=== PATIENT | male | born 1950 | race Caucasian/White ===

== ENCOUNTER → 2018-06-08 10:42 | Outpatient (CLI) | payer MEDICARE, SELFPAY ==
--- NOTE | 2018-06-08 10:51 | XR_ITS ---
XR chest 2V HISTORY: ITS.REASON: COUGH ORDERING PHYSICIAN: Jose Alfredo Quinn MD PATIENT AGE: 68 years COMPARISON: None FINDINGS: The cardiomediastinal silhouette and pulmonary vascularity are within normal limits. The lungs are clear without infiltrates, suspicious nodules, or pleural effusions. No acute bony abnormalities. IMPRESSION: Negative chest, no acute finding
== END ==
PROVIDERS: PCP Family Medicine; Visit Provider Family Medicine
DX: R05 Cough (principal)
CPT/HCPCS: 71046

== ENCOUNTER → 2019-05-31 14:13 | Outpatient (CLI) | payer MEDICARE, SELFPAY ==
--- NOTE | 2019-05-31 14:14 | CA_ITS ---
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 Bilateral Lower Extremity Venous Study for DVT. Java Engineer: LORNA BanksT Indications Lower Extremity Edema: Bilateral leg swelling Risk Factors Post OP Pt has had LE edema since having laser prostate surgery mid Apr. Medications Aspirin Vein Imaging CFV (R): compressive, spontaneous, phasic, augmentation FEM (R): compressive, spontaneous, phasic, augmentation POP (R): compressive, spontaneous, phasic, augmentation PTV (R): Compressible GSV (R): Compressible Peroneals (R):Compressible GAS (R): Compressible CFV (L): compressive, spontaneous, phasic, augmentation FEM (L): compressive, spontaneous, phasic, augmentation POP (L): compressive, spontaneous, phasic, augmentation PTV (L): Compressible GSV (L): Compressible Peroneals (L):Compressible GAS (L): Compressible Conclusion Study is negative for DVT bilateral lower extremities. Study is negative for SVT bilateral lower extremities. 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 Critical Notification Physician Notified Date: 05/31/2019 Time: 14:55 Physician Name: Wanda Madrigal Electronically signed by : Osmar Valentin MD 06/03/2019 16:41:06
== END ==
PROVIDERS: PCP Family Medicine; Visit Provider Urology
DX: M79.89 Other specified soft tissue disorders (principal)
CPT/HCPCS: 93970

== ENCOUNTER → 2020-02-27 09:11 | Outpatient (CLI) | payer MEDICARE, SELFPAY ==
--- NOTE | 2020-02-27 09:25 | US_ITS ---
PROCEDURE: US ABDOMEN LIMITED CLINICAL INDICATION: RUQ PAIN COMPARISON: No exams were available for comparison FINDINGS: PANCREAS: Pancreas is not well delineated due to overlying bowel gas. CT or MRI without and with contrast with pancreatic protocol may provide further evaluation if clinically desired. LIVER: No focal liver lesions demonstrated. Homogeneous echogenicity. No intrahepatic biliary ductal dilatation evident. There is appropriate direction of blood flow within a non dilated portal vein RIGHT KIDNEY: Unremarkable. Normal size and echogenicity. No hydronephrosis GALLBLADDER: No gallstones, gallbladder wall thickening, pericholecystic fluid, or biliary dilatation. IMPRESSION: Poor visualization pancreas otherwise negative right upper quadrant ultrasound Dictated by: Osmar Valentin MD 02/27/2020 16:12 Electronically signed by Osmar Valentin MD in [place] 02/27/2020 16:12
--- NOTE | 2020-02-27 09:38 | CA_ITS ---
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 Laterality: Bilateral Study Quality: Fair Indications: facial numbness, htn, dm, hld Doppler Spectral Velocity Analysis ECA (R) 104.50/13.50 cm/s ECA (L) 109.70/10.30 cm/s dICA (R) 94.40/33.00 cm/s dICA (L) 92.00/29.90 cm/s Babs (R) 80.20/25.20 cm/s Babs (L) 77.90/24.40 cm/s pICA (R) 94.20/30.80 cm/s pICA (L) 84.80/26.60 cm/s dCCA (R) 92.50/18.70 cm/s dCCA (L) 92.80/15.70 cm/s pCCA (R) 90.00/19.70 cm/s pCCA (L) 87.50/13.50 cm/s Vert (R) 43.30/13.90 cm/s Vert (L) 44.90/13.90 cm/s ICA/CCA 1.00 ICA/CCA 1.00 Findings Duplex evaluation demonstrates stenosis of the right proximal internal carotid artery <20% with PSV <140 cm/sec, EDV <100 cm/sec, and IC/CC Ratio <4.0. Duplex evaluation demonstrates stenosis of the left proximal internal carotid artery <20% with PSV <140 cm/sec, EDV <100 cm/sec, and IC/CC Ratio <4.0. Duplex evaluation demonstrates antegrade flow of the bilateral Vertebral Arteries. Difficult to image. TDS. Conclusion No increased velocities to suggest hemodynamically significant stenosis in either internal carotid artery. Electronically signed by : Osmar Valentin MD 02/27/2020 17:07:20
== END ==
PROVIDERS: PCP Family Medicine; Visit Provider Family Medicine
DX: R10.11 Right upper quadrant pain (principal); R20.0 Anesthesia of skin
CPT/HCPCS: 76705; 93880

== ENCOUNTER → 2021-11-26 08:27 | Outpatient (CLI) | payer MEDICARE, SELFPAY ==
[2021-11-26 09:27] LABS: Hemoglobin A1C 7.9 % (4.0-6.0)
[2021-11-26 09:44] LABS: Chloride 111 mmol/L (98-107); Potassium 5.2 mmoL/L (3.5-5.1); Sodium 141 mmol/L (136-145)
[2021-11-26 09:46] LABS: Blood Urea Nitrogen 23 mg/dl (9-20); Estimated Glomerular Filt Rate 50 ml/min (>60); GFR (African American) 61 ML/MIN (>60)
[2021-11-26 09:47] LABS: Alanine Aminotransferase 21 U/L (12-78); Albumin/Globulin Ratio 1.6 (1.1-1.8); Alkaline Phosphatase 117 U/L (38-126); Anion Gap 13.2 mEq/L (5-15); Aspartate Amino Transferase 23 U/L (17-59); Bilirubin,Total 0.4 mg/dl (0.2-1.3); Calcium 8.7 mg/dl (8.4-10.2); Carbon Dioxide 22 mmol/L (22.0-30.0); Chol/HDL Ratio 3.1 (1-3.5); Cholesterol 131 mg/dl (140-200); Globulin 2.5 g/dL (1.3-3.2); Glucose 179 mg/dl (74-100); HDL Cholesterol 42 mg/dl (40-60); Total Protein,Serum 6.5 g/dl (6.3-8.2); Triglycerides 121 mg/dl (30-150); VLDL Cholesterol 24 mg/dL (0-40)
[2021-11-26 09:59] LABS: Direct LDL Cholesterol 70.68 mg/dL (100-129)
== END ==
PROVIDERS: PCP Family Medicine; Visit Provider Family Medicine
DX: E78.5 Hyperlipidemia, unspecified (principal); F52.21 Male erectile disorder; E11.9 Type 2 diabetes mellitus without complications; I10 Essential (primary) hypertension
CPT/HCPCS: 36415; 80053; 80061; 83036; G0103

== ENCOUNTER → 2022-03-12 16:27 | Outpatient (CLI) | payer MEDICARE, SELFPAY | PROVIDERS: PCP Family Medicine; Visit Provider Family Medicine | DX: U07.1 COVID-19 (principal) | CPT/HCPCS: C9803; U0003; U0005 ==

== ENCOUNTER → 2022-05-31 09:29 | Outpatient (CLI) | payer MEDICARE, SELFPAY | PROVIDERS: PCP Family Medicine; Visit Provider Family Medicine | DX: D64.9 Anemia, unspecified (principal) | CPT/HCPCS: 36415; 86850 ==

== ENCOUNTER → 2022-06-02 07:50 | Outpatient (CLI) | payer MEDICARE, SELFPAY ==
[2022-06-02] VITALS (20 sets, daily range): BP systolic 148–178; BP diastolic 62–93; PULSE 62–92; RESP 16; TEMP 36.1–36.4; O2SAT 98–100; BMI 33.0
[2022-06-02 09:17] LABS: Hematocrit 21.9 % (42.0-52.0)
--- NOTE | 2022-06-02 09:20 | PC.NURSE ---
BARBARA FROM LAB CALLED RN AT 0920 TO REPORT A HGB LEVEL 6.0. RN REPEATED AND VERIFIED PT NAME, , AND LAB VALUE. BLOOD INFUSED PER ORDER FROM .
[2022-06-02 13:14] LABS: Hematocrit 25.8 % (42.0-52.0); Hemoglobin 7.5 g/dL (14.1-18.0)
== END ==
PROVIDERS: PCP Family Medicine; Visit Provider Family Medicine
DX: D64.9 Anemia, unspecified (principal)
CPT/HCPCS: 36430; 85014; 85018; P9016

== ENCOUNTER 2022-06-13 10:51 | Day surgery (SDC) | payer MEDICARE, SELFPAY ==
[2022-06-12 09:19] VITALS: BMI 33.0
[2022-06-13] VITALS (8 sets, daily range): BP systolic 85–192; BP diastolic 52–78; PULSE 83–121; RESP 18–20; TEMP 36.2–36.3; O2SAT 92–98
[2022-06-13 11:54] LABS: Chloride 101 mmol/L (98-107); Potassium 4.2 mmoL/L (3.5-5.1); Sodium 138 mmol/L (136-145)
[2022-06-13 11:59] LABS: Anion Gap 18.2 mEq/L (5-15); Blood Urea Nitrogen 16 mg/dl (9-20); Calcium 8.9 mg/dl (8.4-10.2); Carbon Dioxide 23 mmol/L (22.0-30.0); Creatinine Clearance Estimated 74 mL/min (50-200); Estimated Glomerular Filt Rate 60 ml/min (>60); GFR (African American) 72 ML/MIN (>60); Glucose 101 mg/dl (74-100)
--- NOTE | 2022-06-13 12:11 | P.PN_ITS ---
PFSH PFSH Medical History Allergies Family history of GERD History of hypertension Surgical History History of tonsillectomy Family History Other No significant family history Social History Smoking Status: Never smoker alcohol intake: never substance use type: denies use current occupational status: retired Travel in the last 8 weeks: None household members: spouse housing: house caffeine: Yes [facility] Anesthesia Checklist Patient Identification Patient Identification: Arm Band and Verbal (Name & ) Structural Data Admitted From: Home Planned Operative Procedure/s: EGD/Colonoscopy Consent for Planned Operative Procedure(s) Verified: Yes NPO Status Verified Time NPO: 07:00 (Prep) Chart Verification Results Verified: BMP Airway Assessment C-Spine Mobility Assessed: Yes TMJ Mobility Assessed: Yes Dentition: Good Dentition Neurological Assessment Level of Consciousness: Awake Hx Seizures: No Numbness or tingling in extremities: No Anesthesia Plan Anesthesia Risk discussed: Yes Anesthesia Plan: Verified ASA Class: III Anesthesia Type: MAC
--- NOTE | 2022-06-13 13:28 | HMH.SCOPE ---
Procedure: Date: 06/13/22 Patient Date of :: 1950 Procedure Performed:: Esophagogastroduodenoscopy with biopsies and clip deployment Total colonoscopy with biopsy Indications:: Patient is a 72-year-old male referred by Dr. Quinn for performance of upper endoscopy and colonoscopy to work-up anemia.? Patient has had recent progressive weakness and fatigue with excessive sleepiness.? He underwent evaluation in his primary care provider's office and blood work was ordered which revealed hemoglobin of 5.9.? Patient was transfused a couple of units of packed red blood cells.? He has no known history of ulcers.? Patient does describe a 2-year history of back pain.? He has had some diarrhea.? He states that this is worse with spicy [place]ian type food.? He has not noticed any blood in his bowel movements.? He is on omeprazole.? He stopped the diclofenac.? Patient was transfused through outpatient surgery.? I have obtained records from previous colonoscopy and patient underwent colonoscopy on 08/01/[address] 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 Performing Provider:: Robi Sharma MD Referring Provider:: Eris Quinn MD Sedation:: MAC sedation Procedure:: Patient was taken to endoscopy procedure room. He was positioned in lateral decubitus position. Adequate intravenous sedation was achieved with anesthesia titration of propofol. Olympus endoscope was inserted via the oropharynx. Esophagus was intubated and endoscope was advanced. Overall the esophagus appeared relatively unremarkable. Stomach was cannulated and insufflated. Retroflexion revealed no evidence of any hiatal hernia. Gastric lumen appeared relatively unremarkable. However at the pylorus there was a small to moderate pyloric channel ulcer. This was clean-based with no stigmata of recent bleeding. The endoscope was able to be advanced into the duodenum. Duodenal bulb appeared unremarkable. In the second portion of the duodenum there was evidence of some inflammation and there was what appeared to be polypoid-like mass lesion. This was moderate sized and quite inflamed appearing. The significance is uncertain. With some minor difficulty the endoscope was able to be advanced beyond this and the distal duodenum appeared unremarkable. Endoscope was withdrawn and with repeated withdrawal into the gastric lumen and then reinsertion of the endoscope several biopsies were obtained of this polypoid masslike lesion in the second portion of the duodenum. There appeared to be good hemostasis. However, it was noted that this appeared to be somewhat pulsatile. To assure ongoing hemostasis ultimately Hemoclip was deployed near the base of the lesion. There was no bleeding noted. Endoscope was withdrawn into the gastric lumen. Gastric mucosal biopsies obtained. Stomach was desufflated and the endoscope was withdrawn. Patient was then positioned for colonoscopy. Variable stiffness Olympus colonoscope was inserted via the anus. It was advanced to the cecum. The ileocecal valve and appendiceal orifice were clearly identified. Colonoscope was advanced to the ileocecal valve but not into the terminal ileum as the terminal ileum could not be cannulated. There was an area of minor mucosal prominence/irregularity in the cecum which was likely inconsequential but biopsy was performed. Colonoscope was withdrawn through the remainder of the colon. There were very rare diverticuli in the sigmoid. Within the rectum there were evidence of probable varicosities which appeared to be potentially chronically thrombosed with no evidence of any bleeding. He had prolapsing nonbleeding internal hemorrhoids. Colonoscope was withdrawn. Findings:: Pyloric channel ulcer Polypoid masslike lesion in the second portion of the duodenum, biopsied, cli
[2022-06-14 15:16] LABS: POC Glucose,Bedside 118 (70-110)
== END 2022-06-13 14:32 | disposition home or self-care (01) ==
PROVIDERS: PCP Family Medicine; Visit Provider Surgery
PROC: 0DJ08ZZ Inspection of Upper Intestinal Tract, Via Natural or Artificial Opening Endoscopic (ICD-10-PCS; CPT 43235; principal; 2022-06-13 12:00)
DX: Z12.11 Encounter for screening for malignant neoplasm of colon (principal); D64.9 Anemia, unspecified; K63.5 Polyp of colon; K21.9 Gastro-esophageal reflux disease without esophagitis; Z79.899 Other long term (current) drug therapy
CPT/HCPCS: 43239; 45380; 80048; 82962; 88305; J2704

== ENCOUNTER → 2022-06-19 11:38 | Outpatient (CLI) | payer MEDICARE, SELFPAY ==
[2022-06-19 13:16] LABS: Blood Urea Nitrogen 15 mg/dl (9-20); Estimated Glomerular Filt Rate 60 ml/min (>60); GFR (African American) 72 ML/MIN (>60)
== END ==
PROVIDERS: PCP Family Medicine; Visit Provider Surgery
DX: D64.9 Anemia, unspecified (principal); K31.89 Other diseases of stomach and duodenum
CPT/HCPCS: 36415; 82565; 84520

== ENCOUNTER → 2022-06-25 08:04 | Outpatient (CLI) | payer MEDICARE, SELFPAY ==
--- NOTE | 2022-06-25 08:10 | CT_ITS ---
FINAL REPORT TECHNIQUE: Axial CT images of the abdomen and pelvis were obtained before and after the administration of IV contrast. Oral contrast was administered.This study was performed with techniques to keep radiation doses as low as reasonably achievable (ALARA). Individualized dose reduction techniques using automated exposure control or adjustment of mA and/or kV according to the patient''s size were employed. CLINICAL HISTORY: Duodenal mass, left flank pain FINDINGS: Abdomen: The lung bases are clear. The heart is normal in size. The liver has an unremarkable appearance, without evidence of mass or biliary duct dilatation. The gallbladder is present. The spleen is unremarkable. No adrenal masses present. The pancreas has an unremarkable appearance. There is a less than 1 cm cyst in the medial right kidney. The aorta is normal in caliber. There is no free fluid or adenopathy. No mass or abnormal fluid collection is seen. Precontrast images demonstrate no evidence of nephrolithiasis. There is mild to moderate vascular calcification. Pelvis: The appendix is normal. There is a presumed surgical clip at the 2nd portion of the duodenum. No duodenal mass is identified. The urinary bladder is unremarkable. The prostate is moderately enlarged. There is a small right inguinal hernia containing fat. No inflammatory process is seen. There is no evidence of mass or adenopathy. There is no evidence of bowel obstruction. IMPRESSION: No duodenal mass identified. Moderate prostate enlargement. Reviewed, Interpreted and Dictated by Robi Azevedo III, MD Transcribed by Velia Arreaga Authenticated and [facility]
== END ==
PROVIDERS: PCP Family Medicine; Visit Provider Surgery
DX: K31.89 Other diseases of stomach and duodenum (principal); R10.9 Unspecified abdominal pain
CPT/HCPCS: 74178; Q9967

== ENCOUNTER → 2022-08-04 12:46 | Outpatient (CLI) | payer MEDICARE, SELFPAY ==
--- NOTE | 2022-08-04 12:51 | XR_ITS ---
FINAL REPORT CLINICAL HISTORY: RT KNEE PAIN FINDINGS: RIGHT KNEE Three views of the right knee reveal no evidence of fracture or dislocation. The bony alignment is normal. There are mild and moderate degenerative changes with medial compartment narrowing. There is no evidence of joint effusion. There are posterior soft tissue calcifications. There are mild vascular calcifications. IMPRESSION: Mild and moderate degenerative changes with no acute abnormality identified. Reviewed, Interpreted and Dictated by Robi Azevedo III, MD Transcribed by Kitty Cadet Authenticated and [facility]
== END ==
LOC: LAB 12:47 → RAD 12:48
PROVIDERS: PCP Family Medicine; Visit Provider Family Medicine
DX: M25.561 Pain in right knee (principal)
CPT/HCPCS: 73562

== ENCOUNTER → 2022-08-21 20:36 | Outpatient (CLI) | payer MEDICARE, SELFPAY | PROVIDERS: PCP Student in an Organized Health Care Education/Training Program; Visit Provider Student in an Organized Health Care Education/Training Program | DX: U07.1 COVID-19 | CPT/HCPCS: C9803; U0003; U0005 ==

== ENCOUNTER 2022-09-26 06:57 | Day surgery (SDC) | payer MEDICARE, SELFPAY ==
[2022-08-13 10:28] VITALS: BMI 32.9
[2022-09-23 09:15] VITALS: BMI 33.0
[2022-09-26 07:14] VITALS: BP 189/102; PULSE 85; RESP 18; TEMP 36.2; O2SAT 98
--- NOTE | 2022-09-26 07:23 | EXP.ANES.CKL ---
[facility] Disclaimer: The information contained in this section may have been updated after the patient was seen, as this information can be updated by other users. Medical History Allergies Diabetes mellitus, type 2 Family history of GERD History of anemia History of COVID-19 History of hypertension Hyperlipidemia Hypertension Migraine Osteoarthritis of right knee Uses hearing aid Surgical History History of colonoscopy History of esophagogastroduodenoscopy (EGD) History of prostate surgery History of surgery History of tonsillectomy Family History Other Family history of heart disease Social History Smoking Status: Never smoker alcohol intake: never substance use type: denies use current occupational status: retired Travel in the last 8 weeks: None household members: spouse housing: house marital status: education level: high school caffeine: Yes special cara needs: No agree to transfusion: No do you feel safe at home: Yes victim of physical abuse: No victim of emotional abuse: No victim of sexual abuse: No would you like helpful sources: No [facility] Anesthesia Checklist Patient Identification Patient Identification: Arm Band and Verbal (Name & ) Structural Data Admitted From: Home Planned Operative Procedure/s: EGD Verified Documents: Surgical Consent NPO Status Verified Time NPO: 19:30 Airway Assessment C-Spine Mobility Assessed: Yes TMJ Mobility Assessed: Yes Dentition: Good Dentition Neurological Assessment Level of Consciousness: Awake, Alert and Appropriate Anesthesia Plan Anesthesia Risk discussed: Yes ASA Class: II Anesthesia Type: MAC
[2022-09-26 07:27] VITALS: O2SAT 98
--- NOTE | 2022-09-26 07:48 | P.PCN_ITS ---
Procedure: Date: 09/26/22 Patient Date of :: 1950 Procedure Performed:: Esophagogastroduodenoscopy with biopsy and dilatation of pylorus to 18 mm using elation pneumatic dilator Indications:: Patient presents for upper endoscopy.? He is a 72-year-old with symptomatic anemia and progressive weakness and fatigue.? He did have a hemoglobin of 5.9.? He had been on diclofenac and this was stopped and he was on omeprazole.? I did increase his omeprazole after his recent EGD.? He had a colonoscopy by Dr. 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 I did EGD and colonoscopy on 06/13/2022 and he had a pyloric channel ulcer which was nonbleeding but also had a polypoid masslike lesion in the second portion of the duodenum which was biopsied extensively and pathology returned as inflamed granulation tissue.? Colonoscopy was rather unremarkable.? Given the findings on upper endoscopy I had him undergo CT scan.? This reveals no duodenal mass identified.? Moderate prostate enlargement. ??Plan was for follow-up upper endoscopy. Performing Provider:: Robi Sharma MD Referring Provider:: Eris Quinn MD Sedation:: MAC sedation Procedure:: Patient was taken to endoscopy procedure room. He was positioned in lateral decubitus position. Adequate intravenous sedation was achieved with anesthesia titration of propofol. Olympus endoscope was inserted via the oropharynx. Esophagus appeared unremarkable. Gastroesophageal junction was encountered at approximately 40 cm. Stomach was cannulated and insufflated. There is a large amount of food retained within the stomach which precluded visualization somewhat. This was mostly undigested vegetable matter. Ultimately the pylorus was identified. There was evidence of some minor pyloric stenosis. No definite ulcer noted. The endoscope was barely able to be advanced beyond the pyloric channel. There was no evidence of any previously noted duodenal mass . H owever there did appear to be some minor mucosal narrowing of the second portion of the duodenum. Endoscope was advanced to the distal duodenum which was unremarkable. Endoscope was withdrawn into the stomach. Given the retained food matter and findings of pyloric channel narrowing likely from healing ulcer the pylorus was sequentially dilated from 15-16.5-18 mm luminal diameter using the elation balloon dilator. The endoscope was once again able to be advanced through the pylorus into the duodenum much more easily at this time. Gastric antral mucosal biopsy was obtained for CLOtest for H. pylori. Biopsy was obtained of the pyloric channel. Stomach was desufflated and the endoscope was withdrawn. Findings:: Gastroesophageal junction at 40 cm Large amount of retained food matter/vegetable matter within the gastric lumen and duodenum Pyloric channel narrowing, dilated Recommendations:: Continue proton pump inhibitors. I will follow-up on histopathology. May plan for repeat endoscopy in 8 to 12 weeks with repeat dilatation if indicated. Unlikely gastroparesis given the anatomic finding of the pylorus. Complications:: None immediately apparent Estimated blood obtained (mL): 2
[2022-09-26 07:51] VITALS: BP 89/64; PULSE 78; RESP 18; TEMP 36.1; O2SAT 92
[2022-09-26 08:01] VITALS: BP 119/68; PULSE 69; RESP 17; O2SAT 97
[2022-09-26 08:11] VITALS: BP 138/71; PULSE 63; RESP 16; O2SAT 96
[2022-09-26 08:21] VITALS: BP 132/65; PULSE 67; RESP 17; O2SAT 96
[2022-09-27 09:20] LABS: POC Glucose,Bedside 138 (70-110)
== END 2022-09-26 08:21 | disposition home or self-care (01) ==
PROVIDERS: PCP Family Medicine; Visit Provider Surgery
PROC: 0DJ08ZZ Inspection of Upper Intestinal Tract, Via Natural or Artificial Opening Endoscopic (ICD-10-PCS; CPT 43235; principal; 2022-09-26 08:00)
DX: D64.9 Anemia, unspecified (principal); K31.1 Adult hypertrophic pyloric stenosis; R53.83 Other fatigue; R53.1 Weakness; E11.9 Type 2 diabetes mellitus without complications; Z79.899 Other long term (current) drug therapy
CPT/HCPCS: 43239; 43245; 82962; 87339; 88305; 88342; C1726

== ENCOUNTER 2022-11-28 09:11 | Day surgery (SDC) | payer MEDICARE, SELFPAY ==
[2022-11-26 08:28] VITALS: BMI 33.0
[2022-11-28 09:27] VITALS: BP 195/105; PULSE 98; RESP 20; TEMP 36.4; O2SAT 99
--- NOTE | 2022-11-28 09:30 | P.PN_ITS ---
[facility] Disclaimer: The information contained in this section may have been updated after the patient was seen, as this information can be updated by other users. Medical History Allergies Diabetes mellitus, type 2 Family history of GERD History of anemia History of COVID-19 History of hypertension Hyperlipidemia Hypertension Osteoarthritis of right knee Uses hearing aid Surgical History History of colonoscopy History of esophagogastroduodenoscopy (EGD) History of prostate surgery History of surgery History of tonsillectomy Family History Other Family history of heart disease Social History Smoking Status: Never smoker alcohol intake: never substance use type: denies use current occupational status: retired Travel in the last 8 weeks: None household members: spouse housing: house marital status: education level: high school caffeine: Yes special cara needs: No agree to transfusion: No do you feel safe at home: Yes victim of physical abuse: No victim of emotional abuse: No victim of sexual abuse: No would you like helpful sources: No [facility] Anesthesia Checklist Patient Identification Patient Identification: Arm Band and Verbal (Name & ) Structural Data Admitted From: Home Planned Operative Procedure/s: EGD Consent for Planned Operative Procedure(s) Verified: Yes NPO Status Verified Time NPO: 00:00 Airway Assessment C-Spine Mobility Assessed: Yes TMJ Mobility Assessed: Yes Dentition: Good Dentition Neurological Assessment Level of Consciousness: Awake Hx Seizures: No Numbness or tingling in extremities: No Anesthesia Plan Anesthesia Risk discussed: Yes Anesthesia Plan: Verified ASA Class: II Anesthesia Type: MAC
--- NOTE | 2022-11-28 10:07 | P.PCN_ITS ---
Procedure: Date: 11/28/22 Patient Date of :: 1950 Procedure Performed:: Esophagogastroduodenoscopy with biopsy, polypectomy using hot snare, dilatation pylorus Indications:: Patient presents for upper endoscopy.? He is a 72-year-old with symptomatic anemia and progressive weakness and fatigue.? He did have a hemoglobin of 5.9.? He had been on diclofenac and this was stopped and he was on omeprazole.? I did increase his omeprazole.? He had a colonoscopy by Dr. 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 I did EGD and colonoscopy on 06/13/2022 and he had a pyloric channel ulcer which was nonbleeding but also had a polypoid masslike lesion in the second portion of the duodenum which was biopsied extensively and pathology returned as inflamed granulation tissue.? Colonoscopy was rather unremarkable.? Given the findings on upper endoscopy I had him undergo CT scan.? This reveals no duodenal mass identified.? Moderate prostate enlargement. ??Plan was for follow-up upper endoscopy. He underwent follow-up EGD on 09/26/2022. At that time there was a large amount of retained food matter and vegetable matter withi n the gastric lumen and duodenum which made visualization impossible. He did undergo dilatation of the pyloric channel to 18 mm. Plan was for follow-up EGD for reassessment. Patient has been on a full liquid diet. Performing Provider:: Robi Sharma MD Referring Provider:: Eris Quinn MD Sedation:: MAC sedation Procedure:: Patient was taken to endoscopy procedure room. He was positioned in lateral decubitus position. Adequate intravenous sedation was achieved with anesthesia titration propofol. Olympus endoscope was inserted via the oropharynx. Esophagus was cannulated. Overall esophagus appeared relatively unremarkable. Gastroesophageal junction was encountered at approximately 40 cm. Stomach was cannulated and insufflated. There was good visualization at this point. Retrof lexion revealed no evidence of any significant hiatal hernia. There was some diffuse nonerosive gastritis. Biopsy was obtained. There did appear to be some minor stenosis of the pyloric channel likely due to healed ulcer. No evidence of any ulcer. Endoscope was able to be advanced beyond this although it was rather tight. Endoscope was withdrawn into the gastric lumen and the pyloric channel was dilated sequentially from 15-16 0.5 to 18 mm luminal diameter using the elation balloon dilator. Endoscope was advanced into the duodenum. In the second portion of the duodenum there was a small polypoid inflammatory like lesion. This was consistent with the large lesion noted on his initial endoscopy. This was removed in its entirety using hot snare. It was proximal to the identified ampulla by some distance. Endoscope was withdrawn into the gastroesophageal junction and a couple biopsies were obtained at the GE junction. Stomach was desufflated and the endoscope was withdrawn. Findings:: GE junction at 40 cm Diffuse gastropathy Pyloric stenosis, dilated Polypoid lesion in second portion of the duodenum removed with hot snare Recommendations:: Follow-up on histopathology Complications:: None immediate Estimated blood obtained (mL): 2
[2022-11-28 10:10] VITALS: BP 102/83; PULSE 109; RESP 14; TEMP 36.6; O2SAT 93
[2022-11-28 10:20] VITALS: BP 111/54; PULSE 103; RESP 15; O2SAT 94
[2022-11-28 10:20] LABS: POC Glucose,Bedside 144 (70-110)
[2022-11-28 10:30] VITALS: BP 95/52; PULSE 103; RESP 16; O2SAT 93
[2022-11-28 10:40] VITALS: BP 103/60; PULSE 93; RESP 16; O2SAT 95
[2022-11-28 10:46] VITALS: BP 104/62; PULSE 92; RESP 18; O2SAT 95
== END 2022-11-28 10:48 | disposition home or self-care (01) ==
PROVIDERS: PCP Family Medicine; Visit Provider Surgery
PROC: 0DJ08ZZ Inspection of Upper Intestinal Tract, Via Natural or Artificial Opening Endoscopic (ICD-10-PCS; CPT 43235; principal; 2022-11-28 10:30)
DX: D64.9 Anemia, unspecified (principal); L98.0 Pyogenic granuloma; K29.70 Gastritis, unspecified, without bleeding; Z79.899 Other long term (current) drug therapy; E11.9 Type 2 diabetes mellitus without complications
CPT/HCPCS: 43245; 43250; 82962; 88305; C1726

== ENCOUNTER 2025-04-11 11:04 | Emergency (ER) | payer MEDICARE, SELFPAY ==
--- OUTSIDE RECORDS SUMMARY | 2024-12-02 05:10 | XMS_ITS ---
Author Organization [facility] Address [address] [place] [id number] Care Team Providers Care [employer] Advisor Name Role Phone Maicol Quinn Primary Care Provider [phone] Results Component Value Reference Range Notes P-Vitamin B12 Reviewed date:12/08/2024 01:52:44 PM Interpretation: Performing Lab: Notes/Report: Test performed by [facility] [address] [place] [address] , [address], [place] [address] Brayden Delcid MD, Director Of Student Financial Aid CLIA: [id number] Vitamin B12 779 084-5318 pg/mL P-Comprehensive Metabolic Pa geronimo (CMP) Reviewed date:12/08/2024 01:52:44 PM Interpretation: Performing Lab: Notes/Report: Test performed by [facility] [address] [place] [address] , [address], [place] [address] Brayden Delcid MD, Director Of Student Financial Aid CLIA: [id number] Sodium 141 135-145 mmol/L Potassium 4.5 3.5-5.3 [...] Interpretation: Performing Lab: Notes/Report: Test performed by [facility] [address] [place], [place] [address] [place] [address] Brayden Delcid MD, Director Of Student Financial Aid CLIA: [id number] Hemoglobin A1C 10.2 <5.7 % The following HbA1c ranges recommended by the [place] [employer] (ADA) may be used as an aid in the diagnosis of diabetes mellitus. HbA1c Suggested Diagnosis >=6.5% Diabetic 5.7% - 6.4% Pre-Diabetic <5.7% Non-Diabetic P-Lipid Panel Reviewed date:12/08/2024 01:52:44 PM Interpretation: Performing Lab: Notes/Report: Test performed by [facility] [address] [place] [address] [address], [place] [address] Brayden Delcid MD, Director Of Student Financial Aid CLIA: [id number] Cholesterol 139 <200 mg/dL Triglycerides 146 <150 [...] Interpretation: Performing Lab: Notes/Report: Test performed by [facility] [address] [place] [address] , [address], [place] [address] Brayden Delcid MD, Director Of Student Financial Aid CLIA: [id number] PSA 1.82 <4.00 ng/mL Please note this is an ultrasensitive PSA assay with a lower limit of detection of 0.014 ng/mL. This test is performed by the José Miguel ECLIA methodology. Values obtained with different assay methods or kits cannot be directly compared. P-Microalbumin/Creatinine, R andom Urine Sample Reviewed date:12/08/2024 01:52:44 PM Interpretation: Performing Lab: Notes/Report: Test performed by [facility] [address] [place] [address] , [address], [place] [address] Brayden Delcid MD, Director Of Student Financial Aid CLIA: [id number] Albumin/Creatinine Ratio, Urine 22 0-30 ug/mg Microalbumin, Urine, Random 2.6 Creatinine, Urine 118.6 P-Vitamin D 25-Hydroxy Reviewed date:12/08/2024 01:52:44 PM Interpretation: Performing Lab: Notes/Report: Test performed by [facility] [address] [place] [address] [address], [place] [address] Brayden Delcid MD, Director Of Student Financial Aid CLIA: [id number] Vitamin D 25-Hydroxy 70.1 30.0-100.0 ng/mL Interpretation of Vitamin D 25 OH: < 20 ng/mL - Deficiency 20 - 29 ng/mL - Insufficiency 30 - 100 ng/mL - Sufficiency > 100 ng/mL - Super-therapeutic- toxicity may occur above this level. Clinical correlation required. Estimated Average Glucose Reviewed date:12/08/2024 01:52:44 PM Interpretation: Performing Lab: Notes/Report: Test performed by [facility] [address] [place] [address] [address], [place] [address] Brayden Delcid MD, Director Of Student Financial Aid CLIA: [id number] Estimated Average Glucose (eAG) 246 Estimated Average [...] Active Encounters Encounter Location Date Provider Diagnosis [facility] [address] [place] [address] 36 [facility] [address] [place] [id number] 12/02/2024 Maicol Quinn Essential (primary) hypertension I10 [...] Name:Maicol Sandoval, 06/08/2025 09:30:00 AM, [address] [facility] 36 [facility], [address], [place], [phone], Progress Notes * RAUL VALERAOB:1950 (74 yo M)Acc No.[id number]:12/02/2024 Patient: SHRUTI HOUSTON Provider: Maicol Quinn M.D. :1950 A ge:74 Y S ex:Male Date:12/02/2024 Address:[address] [place] [address] [place] RUANOCT-[id number] Subjective: * Chief Complaints: * 1 . [...] AM)* Value Reference Range V itamin B12 595 895-4161 - pg/mL * Maicol Quinn 12/08/2024 1:52:33 PM >discussed with [...] stimated Average Glucose 246 - mg/dL * [facility], support 12/03/2024 04:40:13 : This order was created by the Interface. Maicol Quinn 12/08/2024 1:52:33 PM >discussed with patient during office visit * Procedure Codes: 3 046F HEMOGLOBIN A1C LEVEL > 9.0% * Images: Billing Information: * Visit Code: * Procedure Codes: 3046F HEMOGLOBIN A1C LEVEL > 9.0%. * Electronic signature of Maicol Quinn MD on 04/11/2025 at 11:17 AM EDT Sign off status: Pending * Provider: Maicol Quinn M.D. Date: 0 12/02/2024 Generated for Zack ng/Fajuanag/eTransmitting on: 0 04/11/2025 11:17 AM EDT
--- OUTSIDE RECORDS SUMMARY | 2024-12-08 05:15 | XMS_ITS ---
Author Organization [facility] Address [address] [place] [phone] Care Team Providers Care Boat Master Name Role Phone Maicol Quinn Primary Care [...] Problem Chronic kidney disease stage 3A (disorder) (530215709) CKD stage 3a, GFR 45-59 ml/min (N18.31) Active confirmed Problem Benign prostatic hyperplasia (293369037) BPH (benign prostatic hyperplasia) (N40.0) Active confirmed Problem Overactive bladder (278156693) Overactive bladder (N32.81) Active confirmed Problem Obese class I (584834441575006 ) BMI 33.0-33.9,adult (Z68.33) Active confirmed Vital Signs Blood pressure systolic 126 mm Hg 12/09/19 25 Blood pressure diastolic 78 mm Hg 025 Height 65 in 12/08/2024 Weight 200.4 lbs 12/08/2024 BMI 33.34 kg/m2 12/08/2024 Encounters Encounter Location Date Provider Diagnosis [facility] [address] [facility] [address] [place], [place] [id number] 12/08/2024 Maicol Quinn Adult general medica l [...] 06/08/2025 09:30:00 AM, [address] [facility], [address] , [place], [place], [id number], Progress Notes * RAUL VALERAOB:1950 (74 yo M)Acc No.[id number]:12/08/2024 Annual Wellness Visit Patient: MEMO HOUSTONY Provider: Maicol Quinn M.D. :1950 A ge:74 Y S ex:Male Date:12/08/2024 Address:[place], [id number] Subjective: * Chief Complaints: * 1 . [...] 11/28/2022. * Hospitalization/Major Diagno stic [facility] [place] [facility]. * Family History: F ather: 53 yrs, [place]. M other: alive 95 yrs, [place], [place]. P aternal Grand Father: . P aternal [...] veractive bladder - N32.81 1 1. B [place] 33.0-33.9,adult - Z68.33 Plan: * Treatment: 2. [...] * Images: Billing Information: * Visit Code: 12275 Office Visit, Est Pt., Level 3. Modifiers: [...] 12/08/2024 Generated for Delioi mark/Jac/eTransmitting on: 0 04/11/2025 11:17 AM EDT History and Physical Notes * HPI (History of Present Illness) Category Sub-Category Detail Notes Category Not es HPI Patient is here today for a [facility] 6 month check up and a [...]
[2025-04-11 11:15] VITALS: BP 140/72; PULSE 93; RESP 16; TEMP 36.6; O2SAT 97; BMI 34.7
--- NOTE | 2025-04-11 11:17 | ECG_ITS ---
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 Exam: Resting ECG HR:98 bpm ECG Measurements Heart Rate 98 AXES OR 202 P 31 QRSd 146 QRS -3 QT 366 T 18 QTc 422 Conclusion Normal sinus rhythm Normal axis RBBB NO STEMI Electronically signed by : Dayron Morrison, 04/11/2025 16:33:38
--- OUTSIDE RECORDS SUMMARY | 2025-04-11 11:17 | XMS_ITS | Encounter Summary ---
Author Organization [facility] ([place], [place], [place], [place]) Address [address] [place] [address] Care Team Providers Care Superintendent Police Name Role Phone Unavailable Primary Care Provider Unavailabl e Encounter Details Date Type Department Care Team (Late st Contact Info) Description 05/04/2019 Transcribed Document [facility] [place] [address] ProviderSam MD [address] [place] [address] Social History Tobacco Use Types Packs/Day Years Used Date Smoking Tobacco: Never Assessed Sex and Gender Information Value Date Recorded Sex Assigned at Male 02/20/2022 5:24 PM CDT Legal Sex Male 6:43 PM CDT Gender Identity Male 02/20/2022 5:24 PM CDT Sexual Orientation Not on file documented as of this encounter Miscellaneous Notes * Cerner Conversion Note - Historical ProviderMD - 05/04/2019 3:25 PM CDT PAT Adult Entered On: 05/04/2019 15:32 EDT Performed On: 05/04/2019 15:25 EDT by LUAN TORRES RN Height and Weight, Clinical Dosing Height Source : Measured Height Entry Format : Phillips Height, Feet : 5 ft(Converted to: 152 cm, 60 Inch) Height, Inches : 5 Inch(Converted to: 0 ft 5 Inch, 12.70 cm) Clinical Height : 165.1 cm Weight Source : Standing scale Weight Entry Format : Phillips Clinical Dosing Weight : 89.82 kg Weight, Pounds : 197.6 lb Body Surface Area (BSA) : 1.97 m2 Body Mass Index : 33 kg/m2 (HI) [place] Body Weight : 61 kg EMERSON Hernandez RN - 05/05/2019 13:46 EDT Health Histories Smoking Status : Never (less than 100 in lifetime; none in last 30 days) Smokeless Tobacco Status : Never LUNA TORRES RN - 05/04/2019 15:25 EDT Social History (As Of: 05/04/2019 15:32:33 EDT) Tobacco: Never (less than 100 in lifetime) Smoking Status. Never Smokeless Tobacco Status. (Last Updated: 05/04/2019 15:25:51 EDT by LUNA TORRES, RN) Alcohol: Alcohol Use History No. (Last Updated: 05/04/2019 15:25:54 EDT by LUNA TORRES, RN) Substance Abuse: Drug Use Hx: No. Use in Last 12 Months: No. (Last Updated: 05/04/2019 15:25:58 EDT by LUNA TORRES, RN) Infectious Disease History Fever/Chills Last 48 Hours : No EMERSON Hernandez RN - 05/05/2019 13:46 EDT Infectious Disease History : Chicken pox/Shingles, Influenza, Mumps, Pertussis (Whooping cough) Travel To Regions with Travel Advisories : No Travel Outside [place] Within Last 30 Days : No Contact With Traveler to Advisory Region : No Tuberculosis Symptoms : None LUNA TORRES RN - 05/04/2019 15:25 EDT Anesthesia/Transfusion History Family History of Anesthesia Reaction : No prior transfusion(s) Blood Transfusion Acceptable to Patient : Yes Transfusion History : Prior anesthesia without reaction Family History of Anesthesia Reaction : None LUNA TORRES RN - 05/04/2019 15:25 EDT Advance Directive Patient has Advance Directive *Q : Yes, Advance Directive not with the patient Advance Directive Type : Living will, Medical durable power of deputy commonwealth's attorney (proxy) Copy Advance Directive Verified/on Chart : No LUNA TORRES RN - 05/04/2019 15:25 EDT Psychosocial History Currently in Unsafe Situation : No Tried to Harm Yourself in the Past? : No Thoughts of Harming/Killing Yourself : No LUNA TORRES RN - 05/04/2019 15:25 EDT Education Topics, Periop Preadmission Perioperative Education Grid Arrival Time/Place : Verbalizes understanding NPO Status/Directions : Verbalizes understanding Remove Body Piercings : Verbalizes understanding Responsible Adult : Verbalizes understanding Take/Hold Medications Pre-Procedure : Verbalizes understanding LUNA TORRES RN - 05/04/2019 15:25 EDT General Info Preferred Name : Huseyin Arrived From : Home Mode of Arrival on Unit : Ambulatory Patient Arrival Date/Time : 05/05/2019 12:38 EDT EMERSON Hernandez RN - 05/05/2019 13:46 EDT Support Person/Pt Rep Name : Leonor Frausto Support Person/Pt Rep Contact Information : [phone] Want Family/Rep/Phys Notified of Admit : No Emergency Contact #1 : Leonor Lisbet Emergency Contact #1 Emergency Contact #1 Relationship : spouse Emergency Contact #2 : ` Emergency Contact #2 Phone Number : ` Emergency Contact #2 Relationship : ` Information Obtained From : Patient Primary Language : Romanian Communication Barrier : None LUNA TORRES RN - 05/04/2019 15:25 EDT Reynaldo Scale Reynaldo Sensory Perception : Slightly limited Reynaldo Moisture : Rarely moist Reynaldo Activity : Walks occasionally Reynaldo Mobility : No limitation Reynaldo Nutrition : Adequate Reynaldo Friction and Shear : No apparent problem Reynaldo Score : 20 LUNA TORRES RN - 05/04/2019 15:25 EDT Sleep Apnea Risk Assmt BMI Greater Than 35 kg/m2 : No Neck Circumference Greater Than 40 cm : No STOP-BANG Sleep Apnea Risk Level Score : 5 EMERSON Hernandez RN - 05/05/2019 13:46 EDT Hx of Obstructive Sleep Apnea Diagnosis : No Snore Loudly : Yes Tired, Fatigued, or Sleepy During Day : Yes Observed Stopping Breathing During Sleep : No Have/Are Being Treated for Hypertension : Yes Age over 50 Years Old : Yes Gender Male : Yes LUNA TORRES RN - 05/04/2019 15:25 EDT documented in this encounter Plan of Treatment Not on file documented as of this encounter Visit Diagnoses Not on filedocumented in this encounter
--- OUTSIDE RECORDS SUMMARY | 2025-04-11 11:17 | XMS_ITS | Encounter Summary ---
Author Organization [employer] ([place], [place], [place], [place]) Address [address] [place] [address] Care Team Providers Care Mechanic Recovery Name Role Phone Unavailable Primary Care Provider Unavailabl e Encounter Details Date Type Department Care Team (Late st Contact Info) Description 05/05/2019 Transcribed Document [facility] [place] [facility] [place] [address] ProviderSam MD [address] [place] [address] Social History Tobacco Use Types Packs/Day Years Used Date Smoking Tobacco: Never Assessed Sex and Gender Information Value Date Recorded Sex Assigned at Male 02/20/2022 5:24 PM CDT Legal Sex Male 6:43 PM CDT Gender Identity Male 02/20/2022 5:24 PM CDT Sexual Orientation Not on file documented as of this encounter Miscellaneous Notes * Cerner Conversion Note - Historical ProviderMD - 05/05/2019 4:40 PM CDT DATE OF PROCEDURE: PREOPERATIVE DIAGNOSIS(ES): Urinary retention secondary to benign prostatic hypertrophy. POSTOPERATIVE DIAGNOSIS(ES): Urinary retention secondary to benign prostatic hypertrophy. PROCEDURE: GreenLight laser vaporization of prostate. SURGEON: Chema Madrigal M.D. ANESTHESIA: General. DRAINS: 22-Citizen Of [place] two-way Whitehead catheter. COMPLICATIONS: None. ESTIMATED BLOOD LOSS: Less than 50 mL. BRIEF HISTORY: Patient is a 68-year-old gentleman who for the last month has been battling episode of acute urinary retention. He was first placed on alpha-gio and then had Avodart added. Unfortunately, he has failed multiple voiding trials and had recent cystoscopy revealing obstructing prostate, mostly lateral lobe tissue. He presents today for GreenLight laser vaporization of prostate. Risks were discussed including bleeding and infection as well as persistent retention. He understands and wished to proceed. DESCRIPTION OF PROCEDURE: After satisfactory general anesthesia, he was carefully placed in the lithotomy position. Sequential compression garments were in place and functioning at time of induction. The continuous flow laser resectoscope apparatus was placed with the obturator and advanced into the bladder. Obviously, his catheter was removed prior to this. The bladder was inspected. He had a slight median lobe. Actually, it seemed as though he had some intravesical extension circumferentially. First attention was given to the median lobe area with care to identify and orient ureteral orifices location. This was taken down flat with the floor of the bladder. It was vaporized posteriorly and then lateral vaporization performed down to the level just proximal to the veru. The prostatic urethra was widely patent. He had no significant bleeding. The laser was placed on standby. Catheter was placed. This was irrigated and seemed to flow freely. His urine was slight pink upon transfer to the recovery room. We will anticipate discharge home with catheter removal in 72 hours. Chema Madrigal M.D. Dict: 05/05/2019 16:40:32 Trans: 05/05/2019 21:38:16 CC1: Chema Madrigal M.D. CC2: Dr. [place], [place] documented in this encounter Plan of Treatment Not on file documented as of this encounter Visit Diagnoses Not on filedocumented in this encounter
--- OUTSIDE RECORDS SUMMARY | 2025-04-11 11:17 | XMS_ITS | Encounter Summary ---
Author Organization [email or web address] ([place], [place], [place], [place]) Address [address] [place] [address] Care Team Providers Care Animal Care Giver Name Role Phone Unavailable Primary Care Provider Unavailabl e Encounter Details Date Type Department Care Team (Late st Contact Info) Description 05/05/2019 Transcribed Document [facility] [place] [address] ProviderSam MD [address] [place] [address] Social History Tobacco Use Types Packs/Day Years Used Date Smoking Tobacco: Never Assessed Sex and Gender Information Value Date Recorded Sex Assigned at Male 02/20/2022 5:24 PM CDT Legal Sex Male 6:43 PM CDT Gender Identity Male 02/20/2022 5:24 PM CDT Sexual Orientation Not on file documented as of this encounter Miscellaneous Notes * Cerner Conversion Note - Historical ProviderMD - 05/05/2019 2:58 PM CDT [facility] Main OR PACU Summary Primary Physician: TERRI CROSS MD-URO Finalized Date/Time: 05/05/19 18:09:17 Pt. Name: HUSEYIN VALERA /Sex: 1950 Male Med Rec #: [id number] Physician: TERRI CROSS MD-URO Financial #: [id number] Pt. Type: O Room/Bed: Admit/Disch: 05/05/19 12:30:00 - Institution: [facility] Main OR PACU I Case Times Entry 1 In PACU I 05/05/19 16:30:00 Ready for PACU 05/05/19 17:00:00 Discharge Discharge from PACU 05/05/19 17:50:00 I Last Modified By: Delphi FallsRuthie moyer Rn-Traveler 05/05/19 18:09:03 [facility] Main OR PACU Acuity Entry 1 Start Time 05/05/19 17:00:00 Stop Time 05/05/19 17:50:00 Acuity Level [facility] PACU Acuity I Last Modified By: Ruthie Wilson Rn-Traveler 05/05/19 18:09:15 Finalized By: Ruthie Wilson Rn-Traveler Document Signatures Signed By: Ruthie Wilson Rn-Traveler 05/05/19 18:09 Electronically signed by Manny [facility] Conversion Oil Separator Cerner at 12/11/2022 3:21 PM CDT documented in this encounter Plan of Treatment Not on file documented as of this encounter Visit Diagnoses Not on filedocumented in this encounter
--- OUTSIDE RECORDS SUMMARY | 2025-04-11 11:17 | XMS_ITS | Encounter Summary ---
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 Name Role Phone Unavailable Primary Care Provider Unavailabl e Encounter Details Date Type Department Care Team (Late st Contact Info) Description 05/05/2019 Transcribed Document [facility] [place] Family [facility] [place] [address] ProviderSam MD [address] [place] [address] Social History Tobacco Use Types Packs/Day Years Used Date Smoking Tobacco: Never Assessed Sex and Gender Information Value Date Recorded Sex Assigned at Male 02/20/2022 5:24 PM CDT Legal Sex Male 6:43 PM CDT Gender Identity Male 02/20/2022 5:24 PM CDT Sexual Orientation Not on file documented as of this encounter Miscellaneous Notes * Cerner Conversion Note - Sam ProviderMD - 05/05/2019 6:09 PM CDT [facility] [place] [address] HUSEYIN VALERA :1950 Visit Time:05/05/2019 What to do next Your Diagnosis Benign prostatic hyperplasia with lower urinary tract symptoms, Benign prostatic hyperplasia with lower urinary tract symptoms Instructions From Your Care Team Diet after Discharge: Resume usual diet as tolerated, Do not drink any alcoholic beverages, Drink at least 8-10 glasses of water per day Activity after Discharge: As tolerated, Rest and relax today, No strenuous activity Lifting Restrictions: No heavy lifting over 10 pounds _ Driving after Discharge: Do not drive until 24 hours after no longer taking pain medications Showering/Bathing: May shower in 24 hours, _ Notify Provider of: signs and symptoms of infection// fever sever pain and swelling_, _ keep appt for thursday to take suero catheter out. Discharge Follow Up Instructions: Follow up of next week in [place] Follow Up Instructions: place suero catheter to leg bag drainage Follow-Up Appointments Follow Up with TERRI CROSS When Within 2 weeks Comments Call for follow up appointment in [place]. Where: [address] [place] [address] [facility] (1) Medications What How Much When Instructions Next Dose sulfamethoxazole-trimethoprim (Bactrim DS 800 mg-160 mg oral tablet) 1 Tablet(s) Oral Two Times A Day Duration: 14 Day(s) Printed Prescription acetaminophen-diphenhydramine (Tylenol Extra Strength PM 500 mg-25 mg oral tablet) 1 Tablet(s) Oral Once a day (at bedtime) as needed for as needed for sleep aspirin 81 Milligram(s) Oral Every Day atorvastatin (atorvastatin 40 mg oral tablet) 1 Tablet(s) Oral At Bedtime diclofenac 75 Milligram(s) Oral Two Times A Day dutasteride 0.5 Milligram(s) Oral Every Day glipiZIDE (glipiZIDE 2.5 mg oral tablet, extended release) 1 Tablet(s) Oral Two Times A Day griseofulvin (griseofulvin ultramicrocrystalline 250 mg oral tablet) 1 Tablet(s) Oral Two Times A Day lisinopril (lisinopril 20 mg oral tablet) 1 Tablet(s) Oral Every Day metFORMIN (metFORMIN 500 mg oral tablet, extended release) 1 Tablet(s) Oral Two Times A Day tamsulosin (tamsulosin 0.4 mg oral capsule) 1 Capsule(s) Oral Two Times A Day Take your medications faithfully. Do NOT skip medication. Do NOT stop taking medications without the direction of a physician. Carry a list of your medications with you at all times, and take this medication list with you to your first follow up visit. Report any side effects. Avoid herbal remedies unless discussed with your physician. As part of your treatment plan, your physician may have prescribed a limited course of a controlled substance. This medication may be given to help people with moderate or severe pain or for other medical conditions, but there are risks involved with treatment. Common side effects may include nausea, constipation, drowsiness, sweating, itching, dry mouth, and rash. More serious side effects may include cognitive and motor impairment, like problems with thinking, concentrating, alertness, and movement (e.g. slowed reflexes), and driving and operating heavy machinery can be dangerous. It is important for you to talk to your physician if you have these side effects or questions. These controlled substances can produce physical dependence and be habit-forming if taken for an extended period of time, which means that the body has gotten used to them and may experience withdrawal symptoms if they are abruptly stopped. Withdrawal symptoms can include runny nose, sweating, goose bumps, diarrhea, abdominal cramping, rapid heartbeat, difficulty sleeping, and nervousness. Please dispose of unused and medications per pharmacy guidance. Education Materials Green Light Laser Prostate Treatment Green light laser therapy is a procedure that uses a high-energy laser to get rid of extra prostate tissue by turning the tissue into a vapor. It is less invasive than traditional methods of prostate surgery, which involve cutting out the prostate tissue. Because the tissue is turned into a vapor (vaporized) rather than cut out, there is generally less blood loss. This surgery is used to treat an enlarged prostate gland (benign prostatic hyperplasia). Tell a health care provider about: ??? Any allergies you have. ??? All medicines you are taking, including vitamins, herbs, eye drops, creams, and [id number] medicines. ??? Any problems you or family members have had with anesthetic medicines. ??? Any blood disorders you have. ??? Any surgeries you have had. ??? Any medical conditions you have. What are the risks? Generally, this is a safe procedure. However, problems may occur, including: ??? Infection. ??? Bleeding. ??? Allergic reaction to medicines. ??? Damage to other structures or organs. ??? Blood in the urine (hematuria). ??? Painful urination. ??? Urinary tract infection. ??? Erectile dysfunction (rare). ??? Dry ejaculation. ??? Scar tissue in the urinary passage. What happens before the procedure? Staying hydrated Follow instructions from your health care provider about hydration, which may include: ??? Up to 2 hours before the procedure ??? you may continue to drink clear liquids, such as water, clear fruit juice, black coffee, and plain tea. Eating and drinking restrictions Follow instructions from your health care provider about eating and drinking, which may include: ??? 8 hours before the procedure ??? stop eating heavy meals or foods such as meat, fried foods, or fatty foods. ??? 6 hours before the procedure ??? stop eating light meals or foods, such as toast or cereal. ??? 6 hours before the procedure ??? stop drinking milk or drinks that contain milk. ??? 2 hours before the procedure ??? stop drinking clear liquids. Medicines ??? Ask your health care provider about: ? Changing or stopping your regular medicines. This is especially important if you are taking diabetes medicines or blood thinners. ? Taking medicines such as aspirin and ibuprofen. These medicines can thin your blood. Do not take these medicines before your procedure if your health care provider instructs you not to. ??? You may be prescribed antibiotic medicine. If so, take your antibiotic as told by your health care provider. Do not stop taking the antibiotic even if you start to feel better. General instructions ??? Plan to have someone take you home from the hospital or clinic. ??? If you will be going home right after the procedure, plan to have someone with you for 24 hours. What happens during the procedure? To reduce your risk of infection: ? Your health care team will wash or sanitize their hands. ? Your skin will be washed with soap. ??? You will be given one or more of the following: ? A medicine to help you relax (sedative). ? A medicine to make you fall asleep (general anesthetic). ? A medicine that is injected into your spine to numb the area below and slightly above the injection site (spinal anesthetic). ??? A tube containing viewing scopes and instruments (fiber-optic scope) will be inserted through your penis. ??? A thin fiber will be put through the tube and positioned next to the extra prostate tissue. ??? Pulses of laser light will come from the end of the fiber and be projected onto the extra tissue. Your blood will absorb the light, become hot, and vaporize the extra prostate tissue. ??? The heat from the laser beam will seal off the blood vessels, which will lessen bleeding. ??? The fiber-optic scope will be removed and replaced with a temporary tube (catheter) that is used to help urine flow. The procedure may vary among health care providers and hospitals. What happens after the procedure? Your blood pressure, heart rate, breathing rate, and blood oxygen level will be monitored until the medicines you were given have worn off. ??? Depending on factors such as the amount of prostate tissue that was vaporized, the strength of your bladder, and the amount of bleeding expected, your catheter may be removed. ??? You may be given elastic support stockings to wear to help prevent blood clots in your legs. ??? Do not drive for 24 hours if you were given a sedative, or for as long as directed by your health care provider. Summary ??? Green light laser therapy is a procedure that uses a high-energy laser that turns extra prostate tissue into a vapor. ??? This procedure is less invasive than traditional methods of prostate surgery. ??? Follow instructions from your health care provider about eating and drinking before the procedure. ??? Pulses of laser light will come from the end of a thin fiber and be aimed at the extra prostate tissue. Your blood will absorb the light, become hot, and vaporize the extra tissue. This information is not intended to replace advice given to you by your health care provider. Make sure you discuss any questions you have with your health care provider. Document Released: 11/16/2008 Document Revised: 08/29/2017 Document Reviewed: 08/29/2017 [employer] Patient Education ?? 2017 [employer] Emergency Awareness and Preventative Care STROKE is an EMERGENCY Every Minute Counts Act FAST and Check for these signs: FACE Does the face look uneven? ARM Does one arm drift down? SPEECH Does their speech sound strange? TIME Call at any sign of stroke Stroke Risk Factors Atrial Fibrillation (irregular heartbeat) Diabetes Family history of stroke Heart Disease Heavy alcohol use High Blood Pressure High Cholesterol Physical inactivity and obesity Smoking Cigarette Smoking The facts are clear, cigarette smoking will shorten your life. Smoking can cause many illnesses along the way. As a healthcare provider, we recommend that you stop smoking. Assistance with quitting is available by contacting 2-780-KKOL-NOW. This is a free resource providing counseling, support, and referral. Or you may contact your personal physician. National Suicide Prevention Lifeline: The National Suicide Prevention Lifeline is a national network of local crisis centers that provides free and confidential emotional support to people in suicidal crisis or emotional distress 24 hours a day, 7 days a week. Don't Wait! Stop a Heart Attack Before it Starts What is a heart attack? A heart attack is damage or to a part of the heart from severely decreased or lack of blood flow to the heart. Over time, arteries can become narrow from the buildup of fat and cholesterol, which is called plaque. The plaque can rupture causing a blood clot to form. When the blood clot forms, the artery can become severely narrowed or completely blocked, causing a heart attack. Heart attack is the leading cause of in the [place]. 85% of muscle damage occurs within the first 2 hours. Delay in the recognition of heart attack symptoms increases the chances of . Know the early symptoms of a heart attack: Nausea Feeling of fullness in chest Jaw Pain Pain that travels down one or both arms Fatigue/being tired Anxiety Back Pain Chest pressure, squeezing, or discomfort Shortness of breath Sweating, or a cold sweat Feeling of impending doom There are unusual signs of a heart attack, too! Women, the elderly, and diabetics may present with atypical symptoms: Fainting/dizziness Weakness Confusion Risk Factors for a Heart Attack Some heart disease risk factors, such as age and family history, cannot be changed. Others, like smoking and lack of exercise, can be changed. Smoking High Cholesterol High Blood Pressure Family History Obesity Age Gender (Males are at higher risk) Lack of Exercise Diabetes Diet Stress Excessive Alcohol Intake If you or someone you know is experiencing the signs and symptoms of a heart attack, DON???T DELAY. Call immediately and seek help. If someone collapses, perform CPR! Do not attempt to drive if you are having symptoms of heart attack. Hands-Only CPR Why Hands-Only CPR? Hands-Only CPR has been shown to be as effective as conventional CPR for cardiac arrests that occur outside of a hospital. Survival depends on immediately receiving CPR from someone nearby. How do you perform Hands-Only CPR? There are two easy steps: Call if you see a teen or adult collapse Push hard and fast in the center of the chest at a beat of 100 beats per minute. Save a life! 4 WAYS TO GET AHEAD OF SEPSIS SEPSIS is a MEDICAL EMERGENCY. Time matters! Infections put you and your family at risk for a life-threatening condition called sepsis. Sepsis is the body's extreme response to an infection. It is life-threatening, and without timely treatment, sepsis can rapidly lead to tissue damage, organ failure, and . Sepsis happens when an infection you already have-in your skin, lungs, urinary tract or somewhere else-triggers a chain reaction throughout your body. 1 PREVENT INFECTIONS Take good care of chronic conditions. Talk to your doctor about getting the recommended vaccines. 2 PRACTICE GOOD HYGIENE Wash your hands frequently. Keep cuts or open sores clean and covered until they are healed. 3 KNOW THE SYMPTOMS Confusion or disorientation Shortness of breath High heart rate Fever, shivering, or feeling very cold Extreme pain or discomfort Clammy or sweaty skin 4 ACT FAST Get medical care IMMEDIATELY if you suspect sepsis or if you have an infection that is not getting better or is getting worse. To learn more about sepsis and how to prevent infections, visit www.cdc.gov/sepsis. Test Results Laboratory or Other Results This Visit (last charted value for your 05/05/2019 visit) General Chemistry 05/05/19 17:21:00 Glucose POC2: 86 mg/dL -- Normal range between ( 70 and 110 ) Device Comment 1: Device Comment 1 Patient Name:HUSEYIN VALERA I have received this information and was given the opportunity to ask questions. Patient/Yacht Master Name: Patient/Yacht Master Signature: Relationship to Patient: Clinician/Hospital Yacht Master Signature: Date: Electronically signed by Interface, [facility] Conversion Ops Analyst Cerner at 12/11/2022 3:14 PM CDT documented in this encounter Plan of Treatment Not on file documented as of this encounter Visit Diagnoses Not on filedocumented in this encounter
--- OUTSIDE RECORDS SUMMARY | 2025-04-11 11:17 | XMS_ITS | Encounter Summary ---
Author Organization 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 Name Role Phone Unavailable Primary Care Provider Unavailabl e Encounter Details Date Type Department Care Team (Late st Contact Info) Description 05/05/2019 Transcribed Document [facility] [place] [address] ProviderSam MD [address] [place] [address] Social History Tobacco Use Types Packs/Day Years Used Date Smoking Tobacco: Never Assessed Sex and Gender Information Value Date Recorded Sex Assigned at Male 02/20/2022 5:24 PM CDT Legal Sex Male 6:43 PM CDT Gender Identity Male 02/20/2022 5:24 PM CDT Sexual Orientation Not on file documented as of this encounter Miscellaneous Notes * Cerner Conversion Note - Sam ProviderMD - 05/05/2019 12:51 PM CDT Patient: HUSEYIN VALERA Age: 68 years Sex: Male : 1950 Associated Diagnoses: None Author: ANTHONY CONCEPCION AEROPHYSICIST Chief Complaint BPH Review of Systems ROS reviewed as documented in chart no change since last seen by surgeon Health Status Allergies: Allergic Reactions (Selected) No Known Medication Allergies, Allergies (1) Active Reaction No Known Medication Allergies None Documented Current medications: (Selected) Documented Medications Documented Tylenol Extra Strength PM 500 mg-25 mg oral tablet: 1 Tab, Oral, Once a day (at bedtime), PRN: as needed for sleep, 0 Refill(s) aspirin: 81 mg, Oral, Daily, 0 Refill(s) atorvastatin 40 mg oral tablet: 1 Tab, Oral, At Bedtime dutasteride: 0.5 mg, Oral, Daily, 0 Refill(s) glipiZIDE 2.5 mg oral tablet, extended release: 1 Tab, Oral, BID griseofulvin ultramicrocrystalline 250 mg oral tablet: 1 Tab, Oral, BID, 0 Refill(s) lisinopril 20 mg oral tablet: 1 Tab, Oral, Daily metFORMIN 500 mg oral tablet, extended release: 1 Tab, Oral, BID tamsulosin 0.4 mg oral capsule: 1 Cap, Oral, BID, Home Medications (9) Active aspirin 81 mg, Oral, Daily atorvastatin 40 mg oral tablet 40 mg = 1 Tab, Oral, At Bedtime dutasteride 0.5 mg, Oral, Daily glipiZIDE 2.5 mg oral tablet, extended release 2.5 mg = 1 Tab, Oral, BID griseofulvin ultramicrocrystalline 250 mg oral tablet 250 mg = 1 Tab, Oral, BID lisinopril 20 mg oral tablet 20 mg = 1 Tab, Oral, Daily metFORMIN 500 mg oral tablet, extended release 500 mg = 1 Tab, Oral, BID tamsulosin 0.4 mg oral capsule 0.4 mg = 1 Cap, Oral, BID Tylenol Extra Strength PM 500 mg-25 mg oral tablet 1 Tab, PRN, Oral, Once a day (at bedtime) , No qualifying data available Problem list: All Problems Prostate hypertrophy / SNOMED CT 155006407 / Confirmed HTN (hypertension) / SNOMED CT 5474112953 / Confirmed Shingles / SNOMED CT 9393109 / Confirmed GERD - Gastro-esophageal reflux disease / SNOMED CT 6010399453 / Confirmed Diabetes mellitus / SNOMED CT 176633150 / Confirmed Back pain / SNOMED CT 6641235842 / Confirmed Arthritis / SNOMED CT 4297219 / Confirmed, Active Problems (7) Arthritis Back pain Diabetes mellitus GERD - Gastro-esophageal reflux disease HTN (hypertension) Prostate hypertrophy Shingles Histories Past Medical History: No active or resolved past medical history items have been selected or recorded. Family History: No family history items have been selected or recorded. Procedure history: No active procedure history items have been selected or recorded. Social History Social & Psychosocial Habits Alcohol 05/04/2019 Alcohol Use History, Social Habits No Substance Abuse 05/04/2019 Recreational Drug Use History No Recreational Drug Use Last 12 Months No Tobacco 05/04/2019 Smoking Status Never (less than 100 in l Smokeless Tobacco Status Never . Physical Examination VS/Measurements No qualifying data available General: Alert and oriented, No acute distress. Eye: Pupils are equal, round and reactive to light, Extraocular movements are intact, glasses. HENT: Normocephalic, slightly KAKE. Neck: Supple, Non-tender. Respiratory: Lungs are clear to auscultation, Respirations are non-labored. Cardiovascular: Normal rate, Regular rhythm, No murmur, No gallop, betty LE 1+ edema. Gastrointestinal: Soft, Non-tender. Genitourinary: No costovertebral angle tenderness, suero cath draining clear yellow urine to drainage bag. Lymphatics: No lymphadenopathy neck, axilla, groin. Musculoskeletal: Normal range of motion, Normal strength. Integumentary: Warm, Dry, [place]. Neurologic: Alert, Oriented. Psychiatric: Cooperative, Appropriate mood & affect. Review / Management Results review: No qualifying data available. Impression and Plan Condition: Stable. documented in this encounter Plan of Treatment Not on file documented as of this encounter Visit Diagnoses Not on filedocumented in this encounter
--- OUTSIDE RECORDS SUMMARY | 2025-04-11 11:17 | XMS_ITS | Encounter Summary ---
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 Name Role Phone Unavailable Primary Care Provider Unavailabl e Encounter Details Date Type Department Care Team (Late st Contact Info) Description 05/05/2019 Transcribed Document [facility] [place] Medicine [facility] [place] [address] ProviderSam MD [address] [place] [address] Social History Tobacco Use Types Packs/Day Years Used Date Smoking Tobacco: Never Assessed Sex and Gender Information Value Date Recorded Sex Assigned at Male 02/20/2022 5:24 PM CDT Legal Sex Male 6:43 PM CDT Gender Identity Male 02/20/2022 5:24 PM CDT Sexual Orientation Not on file documented as of this encounter Miscellaneous Notes * Cerner Conversion Note - Sam ProviderMD - 05/05/2019 3:15 PM CDT [facility] Main OR Preop Summary Primary Physician: TERRI CROSS MD-URO Finalized Date/Time: 05/05/19 14:38:18 Pt. Name: HUSEYIN VALERA /Sex: 1950 Male Med Rec #: [id number] Physician: TERRI CROSS MD-URO Financial #: [id number] Pt. Type: O Room/Bed: Admit/Disch: 05/05/19 12:30:00 - Institution: [facility] PreOp Case Times Entry 1 In Preop 05/05/19 12:38:00 Ready for Holding n/a Room Patient Ready for 05/05/19 13:53:00 Surgery Patient Out of Preop 05/05/19 14:38:00 Patient Out of n/a Holding Room Last Modified By: EMERSON Hernandez RN 05/05/19 14:38:17 [facility] PreOp Case Times Audit 05/05/19 14:38:17 Order Control Clerk Blood Bank: RUBIO Modifier: WILSONDL <+> 1 Patient Out of Preop 05/05/19 13:53:47 Order Control Clerk Blood Bank: RUBIO Modifier: WILSONDL <+> 1 Patient Ready for Surgery Finalized By: EMERSON Hernandez, RN Document Signatures Signed By: EMERSON Hernandez RN 05/05/19 14:38 Electronically signed by Manny [facility] Conversion Carpenter Labor Supervisor Cerner at 12/11/2022 3:20 PM CDT documented in this encounter Plan of Treatment Not on file documented as of this encounter Visit Diagnoses Not on filedocumented in this encounter
--- OUTSIDE RECORDS SUMMARY | 2025-04-11 11:17 | XMS_ITS ---
Author Organization Unknown Medications Date Medication Dosage DosageUnit StartDate StopDate StopReason Active DoseQuantity DoseUnit Dispense DispenseUnit Refills NdcCode DrugCode PharmacyId IsPrescription MappedMedication Srcstatus Custom 12/08 00:00 :00 Align - Tablet Chewable 1 03454019 68 Taking 12/02 00:00 :00 Align - Tablet Chewable 1 [id number] 68 Taking 10/25 00:00 :00 Align - Tablet Chewable 1 52103925 68 Taking 06/09 00:00 :00 Align - Tablet Chewable 1 14737683 68 Taking 06/09 00:00 :00 Amoxicillin -Pot Clavulanate 875-125 MG Tablet 09/16/2023 00:00:00 0 10 Tablet 0 28280 227 534 P Not Taking 12/08 00:00 :00 Aspir-Low 81 MG Tablet Delayed Release 1 [id number] 372 Taking 12/02 00:00 :00 Aspir-Low 81 MG Tablet Delayed Release 1 [id number] 372 Taking 10/25 00:00 :00 Aspir-Low 81 MG Tablet Delayed Release 1 [id number] 372 Taking 06/09 00:00 :00 Aspir-Low 81 MG Tablet Delayed Release 1 [id number] 372 Taking 02/17 00:00 :00 Atorvastati n Calcium 40 MG Tablet 1 90 Tablet 1 39373432 898 Start 02/17 00:00 :00 Atorvastati n Calcium 40 MG Tablet 0 90 Tablet 0 75343218 898 Stop 12/08 00:00 :00 Atorvastati n Calcium 40 MG Tablet 1 000 76276 810 P Continue 12/08 00:00 :00 Atorvastati n Calcium 40 MG Tablet 1 90 Tablet 0 64743814 898 Taking 12/02 00:00 :00 Atorvastati n Calcium 40 MG Tablet 1 90 Tablet 0 81433206 898 Taking 11/24 00:00 :00 Atorvastati n Calcium 40 MG Tablet 1 90 Tablet 0 57462379 898 Start 11/24 00:00 :00 Atorvastati n Calcium 40 MG Tablet 0 90 Tablet 1 78875245 810 Stop 10/25 00:00 :00 Atorvastati n Calcium 40 MG Tablet 1 90 Tablet 1 76766254 810 Taking 10/25 00:00 :00 Atorvastati n Calcium 40 MG Tablet 1 000 82452 810 P Taking 06/09 00:00 :00 Atorvastati n Calcium 40 MG Tablet 1 000 39090 810 P Continue 06/09 00:00 :00 Atorvastati n Calcium 40 MG Tablet 1 90 Tablet 1 29163591 810 Taking 05/31 00:00 :00 Atorvastati n Calcium 40 MG Tablet 1 90 Tablet 1 29852156 810 Start 05/31 00:00 :00 Atorvastati n Calcium 40 MG Tablet 0 90 Tablet 1 72608965 810 Stop 06/09 00:00 :00 Clindamycin HCl 300 MG Capsule 09/16/2023 00:00:00 0 15 Capsule 0 27273190 461 P Not Taking 12/08 00:00 :00 Farxiga 10 MG Tablet 1 90 1 43899072 030 P Unknown Status 12/08 00:00 :00 Farxiga 10 MG Tablet 1 30 Tablet 0 0031 0621 030 Taking 12/02 00:00 :00 Farxiga 10 MG Tablet 1 30 Tablet 0 0031 0621 030 Taking 11/24 00:00 :00 Farxiga 10 MG Tablet 1 30 Tablet 0 0031 0621 030 Start 11/24 00:00 :00 Farxiga 10 MG Tablet 0 15 Tablet 0 0031 0621 030 Stop 11/23 00:00 :00 Farxiga 10 MG Tablet 10/25/2024 00:00:00 1 15 Tablet 0 68508 621 030 P Unknown Status 10/25 00:00 :00 Farxiga 10 MG Tablet 10/25/2024 00:00:00 1 30 2928945 1 030 P Start 12/08 00:00 :00 Finasteride 5 MG Tablet 1 461945 35 505 P Continue 12/08 00:00 :00 Finasteride 5 MG Tablet 1 30 844331 35 505 P Taking 12/02 00:00 :00 Finasteride 5 MG Tablet 1 30 474386 35 505 P Taking 10/25 00:00 :00 Finasteride 5 MG Tablet 1 30 364788 35 505 P Taking 06/09 00:00 :00 Finasteride 5 MG Tablet 1 30 844533 35 505 P Taking 12/08 00:00 :00 Gemtesa 75 MG Tablet 11/15/2024 00:00:00 1 90 1 3142150 7 530 P Unknown Status 12/08 00:00 :00 Gemtesa 75 MG Tablet 11/15/2024 00:00:00 1 30 0360803 7 530 P Taking 12/02 00:00 :00 Gemtesa 75 MG Tablet 11/15/2024 00:00:00 1 30 2618570 7 530 P Taking 11/15 00:00 :00 Gemtesa 75 MG Tablet 11/15/2024 00:00:00 1 30 4384726 7 530 P Start 12/08 00:00 :00 Glimepiride 1 MG Tablet 1 031610 77 301 P Start 12/08 00:00 :00 Glimepiride 1 MG Tablet 06/09/2024 00:00:00 1 90 1 6331271 7 301 P Taking 12/02 00:00 :00 Glimepiride 1 MG Tablet 06/09/2024 00:00:00 1 90 1 2220612 7 301 P Taking 10/25 00:00 :00 Glimepiride 1 MG Tablet 06/09/2024 00:00:00 1 90 1 3402862 7 301 P Taking 06/09 00:00 :00 Glimepiride 1 MG Tablet 06/09/2024 00:00:00 1 90 1 6465985 7 301 P Start 02/23 00:00 :00 Lisinopril 20 MG Tablet 1 90 Tablet 0 6 0353977 190 Start 02/23 00:00 :00 Lisinopril 20 MG Tablet 0 90 Tablet 0 6 1605434 190 Stop 12/08 00:00 :00 Lisinopril 20 MG Tablet 1 911986 40 801 P Continue 12/08 00:00 :00 Lisinopril 20 MG Tablet 1 90 Tablet 0 6 5483883 190 Taking 12/02 00:00 :00 Lisinopril 20 MG Tablet 1 90 Tablet 0 6 2765180 190 Taking 11/30 00:00 :00 Lisinopril 20 MG Tablet 1 90 Tablet 0 6 0580009 190 Start 11/30 00:00 :00 Lisinopril 20 MG Tablet 0 90 Tablet 1 6 5574645 190 Stop 10/25 00:00 :00 Lisinopril 20 MG Tablet 1 90 Tablet 1 6 8697245 190 Taking 06/09 00:00 :00 Lisinopril 20 MG Tablet 1 564616 40 801 P Continue 06/09 00:00 :00 Lisinopril 20 MG Tablet 1 90 Tablet 1 6 9666418 190 Taking 06/08 00:00 :00 Lisinopril 20 MG Tablet 1 90 Tablet 1 6 6247637 190 Start 06/08 00:00 :00 Lisinopril 20 MG Tablet 0 90 Tablet 0 6 4477326 190 Stop 10/25 00:00 :00 metFORMIN HCl ER 500 MG Tablet Extended Release 24 Hour 0 76830376 501 P Stop 10/25 00:00 :00 metFORMIN HCl ER 500 MG Tablet Extended Release 24 Hour 1 18514189 501 P Taking 06/09 00:00 :00 metFORMIN HCl ER 500 MG Tablet Extended Release 24 Hour 1 17785150 501 P Continue 06/09 00:00 :00 metFORMIN HCl ER 500 MG Tablet Extended Release 24 Hour 1 360 Tablet 1 12003537 501 P Taking 11/15 00:00 :00 Myrbetriq 50 MG Tablet Extended Release 24 Hour 11/15/2024 00:00:00 0 1100723 0 207 P Stop 11/14 00:00 :00 Myrbetriq 50 MG Tablet Extended Release 24 Hour 11/15/2024 00:00:00 1 30 7535048 0 207 P Start 12/08 00:00 :00 Omeprazole 40 MG Capsule Delayed Release 1 180 Capsule 1 04780127 401 Taking 12/02 00:00 :00 Omeprazole 40 MG Capsule Delayed Release 1 180 Capsule 1 26653919 401 Taking 10/25 00:00 :00 Omeprazole 40 MG Capsule Delayed Release 1 180 Capsule 1 62897081 401 Taking 06/09 00:00 :00 Omeprazole 40 MG Capsule Delayed Release 1 180 Capsule 1 93529443 401 Taking 06/09 00:00 :00 traMADol HCl 50 MG Tablet 09/16/2023 00:00:00 0 15 0 5964420 0 101 P Not Taking 12/08 00:00 :00 Vitamin D 50 MCG (1999 [place]) Tablet 1 97822782 200 P Continue 12/08 00:00 :00 Vitamin D 50 MCG (1999 [place]) Tablet 1 92630811 200 P Taking 12/02 00:00 :00 Vitamin D 50 MCG (1999 [place]) Tablet 1 87779867 200 P Taking 10/25 00:00 :00 Vitamin D 50 MCG (2000 [place]) Tablet 1 36754910 200 P Taking 06/09 00:00 :00 Vitamin D 50 MCG (1999 [place]) Tablet 1 05633265 200 P Continue 06/09 00:00 :00 Vitamin D 50 MCG (1999 [place]) Tablet 1 03493519 200 P Taking
--- OUTSIDE RECORDS SUMMARY | 2025-04-11 11:17 | XMS_ITS | Encounter Summary ---
Author Organization [employer] ([place], [place], [place], [place]) Address [address] [place] [id number] Care Team Providers Care Nursing Home Social Worker Name Role Phone Unavailable Primary Care Provider Unavailabl e Encounter Details Date Type Department Care Team (Late st Contact Info) Description 05/05/2019 Transcribed Document [facility] [place] [facility] [place] [place] [address] ProviderSam MD [address] [place] [id number] Social History Tobacco Use Types Packs/Day Years Used Date Smoking Tobacco: Never Assessed Sex and Gender Information Value Date Recorded Sex Assigned at Male 02/20/2022 5:24 PM CDT Legal Sex Male 6:43 PM CDT Gender Identity Male 02/20/2022 5:24 PM CDT Sexual Orientation Not on file documented as of this encounter Miscellaneous Notes * Cerner Conversion Note - Sam ProviderMD - 05/05/2019 2:58 PM CDT [facility] Main OR IntraOp Summary Primary Physician: TERRI CROSS MD-URO Finalized Date/Time: 05/06/19 11:59:52 Pt. Name: HUSEYIN VALERA /Sex: 1950 Male Med Rec #: [id number] Physician: TERRI CROSS MD-URO Financial #: [id number] Pt. Type: O Room/Bed: Admit/Disch: 05/05/19 12:30:00 - Institution: [facility] IntraOp Case Attendance Entry 1 Entry 2 Entry 3 Case Attendee TERRI CROSS GHANSAH, NANA DADZIE, MD KLINE, LANCE S, NA MD-URO Role Performed Surgeon/Proceduralist, Anesthesiologist of POL[employer] SCREWHEAD/Nurse Sheriffs First Record Time In 05/05/19 14:39:00 05/05/19 14:39:00 05/05/19 14:39:00 Time Out 05/05/19 16:28:00 05/05/19 16:28:00 05/05/19 15:30:00 Procedure Prostate Green Light Prostate Green Light Prostate Green Light Laser Laser Laser Other Attendee Superficial Wound Closed By: Last Modified By: BELGICA FIGUEROA RN SMITH, MYRIAH L., RN SMITH, MYRIAH L., RN 05/05/19 16:31:20 05/05/19 16:31:20 05/05/19 16:31:20 Entry 4 Entry 5 Entry 6 Case Attendee Aggie Foster RN TODD, JUDY Baker, Amanda S, Telephone Interviewer Role Performed Stamp Collector, First Scrub, First Scrub, First Time In 05/05/19 14:39:00 05/05/19 15:01:00 05/05/19 14:39:00 Time Out 05/05/19 16:09:00 05/05/19 16:28:00 05/05/19 15:02:00 Procedure Prostate Green Light Prostate Green Light Prostate Green Light Laser Laser Laser Other Attendee Superficial Wound Closed By: Last Modified By: BELGICA FIGUEROA RN SMITH, MYRIAH L., BELGICA GATES RN 05/05/19 16:31:20 05/05/19 16:31:20 05/05/19 16:31:20 Entry 7 Entry 8 Entry 9 Case Attendee Penny Chan LAURIE, MD SMITH, MYRIAH L., SANCHEZ Role Performed Wood Getter, Ancillary Anesthesiologist Stamp Collector, First Time In 05/05/19 14:39:00 05/05/19 15:30:00 05/05/19 16:09:00 Time Out 05/05/19 16:28:00 05/05/19 16:28:00 05/05/19 16:28:00 Procedure Prostate Green Light Prostate Green Light Prostate Green Light Laser Laser Laser Other Attendee GREENLIGHT LASER Superficial Wound Closed By: Last Modified By: BELGICA FIGUEROA RN SMITH, MYRIAH L., BELGICA GATES RN 05/05/19 16:31:20 05/05/19 16:31:20 05/05/19 16:31:20 [facility] IntraOp Case Attendance Audit 05/05/19 16:31:20 Application Helper: MYRTLEA Modifier: SMITHML <+> 1 Time Out <+> 1 Procedure 2 <+> Time Out 2 <*> Procedure Prostate Green Light Laser 3 <*> Procedure Prostate Green Light Laser 4 <*> Procedure Prostate Green Light Laser 5 <+> Time Out 5 <*> Procedure Prostate Green Light Laser 6 <*> Procedure Prostate Green Light Laser 7 <+> Time Out 7 <*> Procedure Prostate Green Light Laser 8 <+> Time Out 8 <*> Procedure Prostate Green Light Laser 9 <+> Time Out 9 <*> Procedure Prostate Green Light Laser 05/05/19 16:09:37 Application Helper: MYRTLEA Modifier: SETTLEA 4 <+> Time Out 4 <*> Procedure Prostate Green Light Laser <+> 9 Case Attendee <+> 9 Role Performed <+> 9 Time In <+> 9 Procedure 05/05/19 16:08:19 Application Helper: MYRTLEA Modifier: SETTLEA 3 <+> Time Out 3 <*> Procedure Prostate Green Light Laser <+> 8 Case Attendee <+> 8 Role Performed <+> 8 Time In <+> 8 Procedure 05/05/19 15:08:37 Application Helper: MYRTLEA Modifier: SETTLEA 2 <+> Time In 2 <*> Procedure Prostate Green Light Laser 3 <+> Time In 3 <*> Procedure Prostate Green Light Laser 4 <+> Time In 4 <*> Procedure Prostate Green Light Laser 5 <*> Procedure Prostate Green Light Laser 6 <+> Time In 6 <*> Procedure Prostate Green Light Laser 7 <+> Time In 7 <*> Procedure Prostate Green Light Laser [facility] IntraOp Case Times Entry 1 Patient In Room Time 05/05/19 14:39:00 Out Room Time 05/05/19 16:28:00 Anesthesia Start Time 05/05/19 14:39:00 Stop Time 05/05/19 16:28:00 Surgery / Procedure Times Start Time 05/05/19 14:58:00 Stop Time 05/05/19 16:19:00 Last Modified By: BELGICA FIGUEROA RN 05/05/19 16:30:41 [facility] IntraOp Case Times Audit 05/05/19 16:30:41 Application Helper: SMITHML Modifier: SMITHML <+> 1 Out Room Time <+> 1 Stop Time 05/05/19 16:27:46 Application Helper: TIERRA Modifier: SMITHML <+> 1 Stop Time [facility] IntraOp Communication Entry 1 Communication To Family/Significant other Comment START Communication By Aggie Foster RN Date and Time 05/05/19 15:02:00 Last Modified By: Aggie Foster RN 05/05/19 15:02:37 [facility] IntraOp Departure from OR Entry 1 Integumentary Assessment Integumentary WDL Assessment WDL Transfer/Handoff Transfer to PACU Phase I Handoff Method Bedside/Face to face, Phone call Post-op Transport Stretcher/Gurney Via Patient Transport RYANN MAC MD, Accompanied by BELGICA FIGUEROA RN Last Modified By: BELGICA FIGUEROA RN 05/05/19 16:28:01 [facility] IntraOp Fire Risk Assessment Entry 1 Fire Info Surgical Site or 0- No Incision Above the Xyphoid Open O2 Source 0- No (Mask or Cannula) Available Ignition 1- Yes (ESU, Laser, Light Source) Fire Risk 1 Assessment Score Fire Score Fire Risk Yes Assessment Complete Fire Risk Aggie Foster RN Assessment Verified By Fire Risk 05/05/19 15:04:00 Assessment Verified Date/Time Fire Risk Standard Fire Yes Safety Precautions Followed Last Modified By: Aggie Foster RN 05/05/19 15:04:42 [facility] IntraOp General Case Accessioner 1 Case Information OR Cysto 02 [facility] Case Level 1 Room Verified Yes Wound Class II - Clean-Contaminated Specialty SN Urology Anesthesia Type General ASA Class 2 Diagnosis Preop Diagnosis URINARY RETENTION AND BENIGN PROSTATIC HYPERPLASIA Postop Same As Preop Yes Postop Diagnosis URINARY RETENTION AND BENIGN PROSTATIC HYPERPLASIA Last Modified By: Aggie Foster RN 05/05/19 15:06:42 [facility] IntraOp Intraoperative Assessment Entry 1 Handoff Method Other Valid History / Yes Physical in Chart Preoperative Yes Checklist Reviewed/Evaluated Allergies Reviewed Yes Patient is Latex No Sensitive Isolation Not applicable Precautions Noted Level of WDL Consciousness (WDL = Alert, Oriented to Person, Place, and Time) Skin Assessment Yes Verified Present Upon IVs Arrival to OR Last Modified By: Aggie Foster RN 05/05/19 15:06:50 [facility] IntraOp Intraoperative Equipment Entry 1 Type Monitoring Equipment Intraop Monitoring Electrocardiogram Three lead placement (ECG) Electrode Placement Blood Pressure Non-Invasive BP Device Source Antiembolic Devices Antiembolic Devices Sequential compression device, knee high Antiembolic Device Bilateral Location Antiembolic Device [id number] ID Number Scopes Photo/Video Documentation Photo No Video No Intraop Equipment Sequential compression Comment devices on and in operation prior to induction of anesthesia. Last Modified By: Aggie Foster RN 05/05/19 15:07:29 [facility] IntraOp Medication Admin Entry 1 Entry 2 Medication/Irrigant B&O 16A Suppository - RAFI IRR NACL 0.9PCT [id number] Combo Med List Time Administered Route of RECTAL IRRIGATION Administration Dose Dose 16 44814 Unit of Measure ampule ml Volume Administered By TERRI CROSS, TERRI CROSS MD-URO -URO Procedure Irrigation Irrigant Volume In Irrigant Volume Out Last Modified By: Aggie Foster RN SMITH, MYRIAH L., RN 05/05/19 15:17:14 05/05/19 16:31:13 [facility] IntraOp Medication Admin Audit 05/05/19 16:31:13 Application Helper: TIERRA Modifier: CAROLINAML <+> 2 Medication/Irrigant <+> 2 Route of Administration <+> 2 Administered By <+> 2 Dose <+> 2 Unit of Measure [facility] IntraOp Patient Positioning Entry 1 Procedure Prostate Green Light Laser Body Position Lithotomy Left Arm Position Resting at side Right Arm Position Resting at side Left Leg Position Secured in Leg Jordan Right Leg Position Secured in Leg Jordan Feet Uncrossed Yes Pressure Points Yes Checked Positioning Devices Head Rest, Pad, Elbow, Pad, Elbow, Stirrups/Leg Jordan, Cysto, Table, Cysto Positioned By Aggie Foster, SANCHEZ, TERRI CROSS, -URO, KELSIE BENÍTEZ S, KLAUS Position Verified Positioning Yes Verified by Anesthesia Positioning Yes Verified by Surgeon Last Modified By: Aggie Foster RN 05/05/19 15:08:40 [facility] IntraOp Patient Positioning Audit 05/05/19 15:08:40 Application Helper: TIERRA Modifier: TIERRA 1 <*> Procedure Prostate Green Light Laser [facility] IntraOp Sign In Entry 1 Patient, Site, Yes Procedure Identified Surgical Consent Yes Confirmed Relevant Surgical Yes Documents Available Surgical Site N/A Marked by person performing procedure Anesthesia Machine Yes Check Completed Medication Checks Yes Completed Allergies Yes Airway Difficult Yes Airway/Aspiration Risk Difficult Yes Airway/Aspiration Intervention Equipment Available Blood Loss Risk Yes Blood Loss Yes Intervention Equipment Prepared and Ready Blood Identifiers Not applicable Verified Per Policy Hypothermia Risk Yes Warming Measures Yes Taken Last Modified By: Aggie Foster RN 05/05/19 15:07:44 [facility] IntraOp Sign Out Entry 1 RN Confirmation Surgical Yes Procedure(s) Identified Instrument, Sponge N/A and Sharps Counts Correct/Documented Equipment Problems N/A Documented Specimen Labeled N/A Correctly Urinary Catheter Yes Documented in IView Madrigal Patient Yes Recovery Concerns Reviewed with Anesthesia Provider, Surgeon and RN Madrigal Patient Yes Management Concerns Reviewed with Anesthesia Provider, Surgeon and RN Safety Checklist Yes Elements Complete? RN Sign Out Aggie Foster RN Signature RN Sign Out 05/05/19 15:09:00 Signature Date/Time Plan of Care Outcome - Fire Risk OUTCOME STATEMENT: Goal met Patient is free from injury related to surgical fire Plan of Care Outcome - Pt Positioning OUTCOME STATEMENT: Goal met Absence of signs and symptoms of positioning injury. Plan of Care Outcome - Skin Prep OUTCOME STATEMENT: Goal met Intraoperative care is consistent with measures to prevent infection Plan of Care Outcome - Xray/Images OUTCOME STATEMENT: N/A Absence of observable signs or symptoms of radiation injury Plan of Care Outcome - Counts OUTCOME STATEMENT: Goal met Absence of signs and symptoms of injury related to extraneous objects Last Modified By: Aggie Foster RN 05/05/19 15:12:06 [facility] IntraOp Skin Prep Entry 1 Procedure Prostate Green Light Laser Prescribed Yes Pre-Surgical Prep Completed Prep Area Genitalia Intraop Prep Integumentary WDL Assessment WDL Prep Agents Betadine solution Prep by Aggie Foster RN Hair Removal Last Modified By: Aggie Foster RN 05/05/19 15:08:40 [facility] IntraOp Skin Prep Audit 05/05/19 15:08:40 Application Helper: TIERRA Modifier: TIERRA 1 <*> Procedure Prostate Green Light Laser [facility] IntraOp Surgical Procedures Entry 1 Procedure Prostate Green Light Laser Additional (GREENLIGHT LASER OF Procedure PROSTATE) Description Primary Procedure Yes Primary Surgeon TERRI CROSS MD-URO Start 05/05/19 14:58:00 Stop 05/05/19 16:19:00 Anesthesia Type General Specialty SN Urology Wound Class I - Clean Last Modified By: BELGICA FIGUEROA RN 05/05/19 16:31:19 [facility] IntraOp Surgical Procedures Audit 05/05/19 16:31:19 Application Helper: TIERRA Modifier: SMITHML <+> 1 Stop 05/05/19 15:08:53 Application Helper: TIERRA Modifier: TIERRA 1 <*> Procedure Prostate Green Light Laser 1 <*> Primary Procedure Yes 1 <*> Primary Surgeon TERRI CROSS MD-URO 1 <*> Specialty 1 <*> Start 05/05/19 14:58:00 1 <*> Wound Class I - Clean 1 <*> Anesthesia Type General 1 <*> Additional Procedure Description (GREENLIGHT LASER OF PROSTATE) Entry 2 was deleted. Higher numbered entries shifted one position to fill the gap. <-> 2 Procedure Prostate Green Light Laser <-> 2 Primary Procedure Yes <-> 2 Primary Surgeon TERRI CROSS MD-URO <-> 2 Specialty <-> 2 Start 05/05/19 14:58:00 <-> 2 Wound Class II - Clean-Contaminated <-> 2 Anesthesia Type General <-> 2 Additional Procedure Description GREENLIGHT LASER OF PROSTATE [facility] IntraOp Temp Regulation Devices Entry 1 Temp Regulation Temperature Warm blankets, Room Regulation Device temperature Temperature Upper body Regulation Site Temperature Aggie Foster RN Regulation Device Applied by Temperature Patient's temperature Regulation Comment monitored by anesthesia provider. Forced air warming device settings controlled by anesthesia provider. Last Modified By: Aggie Foster RN 05/05/19 15:09:07 [facility] IntraOP Time Out Entry 1 Procedure to be Prostate Green Light Performed Laser Time Out Time Out Pause Time 05/05/19 14:57:00 All activity Yes suspended (unless life threatening emergency) Team Verbally Correct patient Confirms Information identity, Consent form is present and accurate, Agreement on the procedure to be done, Correct patient position, Confirm antibiotics have been administered, Confirm the skin prep has dried, Performed in location of procedure after prepped/draped Antibiotic Yes Prophylaxis Administered Or In Progress Within the Last 60 Minutes Beta Rosenda N/A Administered Venous Yes Thromboembolism Prophylaxis Required Anticipated Critical Events Surgeon None expected Anesthesia Provider None expected Nursing Assures Sterility of instruments Essential Imaging N/A Labeled and Displayed Last Modified By: Aggie Foster RN 05/05/19 15:08:40 [facility] IntraOP Time Out Audit 05/05/19 15:08:40 Application Helper: TIERRA Modifier: TIERRA 1 <*> Procedure to be Performed Prostate Green Light Laser Case Comments <None> Finalized By: STANISLAW BECK Document Signatures Signed By: BELGICA FIGUEROA RN 05/05/19 16:31 STANISLAW BECK 05/06/19 11:59 Unfinalized History Date/Time Username Reason for Unfinalizing Freetext Reason for Unfinalizing 05/06/19 11:57 WATTSDR Correct Billing documented in this encounter Plan of Treatment Not on file documented as of this encounter Visit Diagnoses Not on filedocumented in this encounter
--- OUTSIDE RECORDS SUMMARY | 2025-04-11 11:17 | XMS_ITS | Patient Health Record ---
[facility] Address [address] [place] [id number] Care Team Providers Care Ceo & Board Director Name Role Phone Maicol Quinn Primary Care Provider Allergies Allergen (clinical drug ingredient) Drug/Non Drug Allergy documented on EMR Reaction Allergy Type Onset Date Status metformin metFORMIN diarrhea Drug Allergy Active Results Component Value Reference Range Notes CBC [...] - 38 plat 135 100 - 400 P-Vitamin D 1,25-Dihydroxy a nd 25-Hydroxy Reviewed date:06/09/2024 05:05:33 PM Interpretation:Normal Performing Lab: Notes/Report: Test performed by [facility] [address] [place] [address] , [address], [place] [address] Brayden Delcid MD, Kohinoor Operator CLIA: [id number] Vitamin D 25-Hydroxy 53.8 30.0-100.0 ng/mL Interpretation of Vitamin D 25 OH: < 20 ng/mL - Deficiency 20 - 29 ng/mL - Insufficiency 30 - 100 ng/mL - Sufficiency > 100 ng/mL - Super-therapeutic- toxicity may occur above this level. Clinical correlation required. Vitamin D, 1, 25 Dihydroxy 47.8 19.9-79.3 pg/m L P-Lipid Panel Reviewed date:06/09/2024 05:05:33 PM Interpretation:Normal Performing Lab: Notes/Report: Test performed by [facility] [address] , [address], [place] [address] Brayden Delcid MD, Kohinoor Operator CLIA: [id number] Cholesterol 141 <200 mg/dL Triglycerides 137 <150 mg/dL HDL Cholesterol 41 >39 mg/dL Cholesterol / HDL Ratio 3.44 0.00-4.99 Ratio Non-HDL Cholesterol 100 <130 mg/dL LDL Cholesterol (Calculation) 73 <130 mg/dL LDL Cholesterol Levels* Less than 100 mg/dL Optimal 100 to 129 mg/dL Near Optimal/ Above Optimal 130 to 159 mg/dL Borderline High 160 to 189 mg/dL High 190 mg/dL and above Very High * Categories as recommended by the 2004 ATPIII guidelines LDL/HDL Ratio 1.8 <3.3 Ratio LDL Cholesterol Patient History Test Date: 05/28/2022 LDL Results: 42 Units: mg/dL % Change: - Test Date: 12/07/2023 LDL Results: 40 Units: mg/dL % Change: -4% Test Date: 06/06/2024 LDL Results: 73 Units: mg/dL % Change: +82% P-Vitamin B12 Reviewed date:06/09/2024 05:05:33 PM Interpretation:Normal Performing Lab: Notes/Report: Test performed by [facility] [address] [place] [address] , [address], [place] [address] Brayden Delcid MD, Kohinoor Operator CLIA: [id number] Vitamin B12 952 606-9941 pg/mL Glycohemoglobin A1c (in hous e) Reviewed date:06/09/2024 05:05:34 PM Interpretation:8.3 Performing Lab: Notes/Report: 8.3 glycohemoglobin 8.3% 5 - 6.5 % CBC Fingerstick (in house) Reviewed date:06/09/2024 05:05:33 PM Interpretation:Normal Performing Lab: Notes/Report: Normal wbc 5.3 3.5 - 10 lym 31.4% 15 - 50 mid 8.4% 2 - 15 gran 60.2% 35 - 80 rbc 5.09 3.5 - 5.5 hgb 14.9 11.5 - 16.5 hct 46.5 35 - 55 mcv 91.2 75 - 100 mch 29.2 25 - 35 mchc 32.1 31 - 38 plat 188 100 - 400 P-Vitamin B12 Reviewed date:12/08/2024 01:52:44 PM Interpretation: Performing Lab: Notes/Report: Test performed by [facility] [address] [place] [address] , [place] [address] Brayden Delcid MD, Kohinoor Operator CLIA: [id number] Vitamin B12 330 704-4935 pg/mL P-Comprehensive Metabolic Pa geronimo (CMP) Reviewed date:12/08/2024 01:52:44 PM Interpretation: Performing Lab: Notes/Report: Test performed by [facility] [address] [place] [address] [address], [place] [address] Brayden Delcid MD, Kohinoor Operator CLIA: [id number] Sodium 141 135-145 mmol/L Potassium 4.5 3.5-5.3 [...] Interpretation: Performing Lab: Notes/Report: Test performed by [facility] [address] [place] [address] [address], [place] [address] Brayden Delcid MD, Kohinoor Operator CLIA: [id number] Hemoglobin A1C 10.2 <5.7 % The following HbA1c ranges recommended by the [place] [employer] (ADA) may be used as an aid in the diagnosis of diabetes mellitus. HbA1c Suggested Diagnosis >=6.5% Diabetic 5.7% - 6.4% Pre-Diabetic <5.7% Non-Diabetic P-Lipid Panel Reviewed date:12/08/2024 01:52:44 PM Interpretation: Performing Lab: Notes/Report: Test performed by [facility] [address] [place] [address] [address], [place] [address] Brayden Delcid MD, Kohinoor Operator CLIA: [id number] Cholesterol 139 <200 mg/dL Triglycerides 146 <150 [...] Interpretation: Performing Lab: Notes/Report: Test performed by [facility] [address] [place], [place] [address] [place] , [place] [address] Brayden Delcid MD, Kohinoor Operator CLIA: [id number] PSA 1.82 <4.00 ng/mL Please note this is an ultrasensitive PSA assay with a lower limit of detection of 0.014 ng/mL. This test is performed by the José Miguel ECLIA methodology. Values obtained with different assay methods or kits cannot be directly compared. P-Microalbumin/Creatinine, R andom Urine Sample Reviewed date:12/08/2024 01:52:44 PM Interpretation: Performing Lab: Notes/Report: Test performed by [facility] [address] , [place] [address] Brayden Delcid MD, Kohinoor Operator CLIA: [id number] Albumin/Creatinine Ratio, Urine 22 0-30 ug/m g Microalbumin, Urine, Random 2.6 Creatinine, Urine 118.6 P-Vitamin D 25-Hydroxy Reviewed date:12/08/2024 01:52:44 PM Interpretation: Performing Lab: Notes/Report: Test performed by [facility] [address] [place] [address] , [place] [address] Brayden Delcid MD, Kohinoor Operator CLIA: [id number] Vitamin D 25-Hydroxy 70.1 30.0-100.0 ng/mL Interpretation of Vitamin D 25 OH: < 20 ng/mL - Deficiency 20 - 29 ng/mL - Insufficiency 30 - 100 ng/mL - Sufficiency > 100 ng/mL - Super-therapeutic- toxicity may occur above this level. Clinical correlation required. Estimated Average Glucose Reviewed date:12/08/2024 01:52:44 PM Interpretation: Performing Lab: Notes/Report: Test performed by [facility] [address] , [place] [address] Brayden Delcid MD, Kohinoor Operator CLIA: [id number] Estimated Average Glucose (eAG) 246 Estimated Average Glucose (eAG) is calculated using the equation eAG = (28.7 x HbA1c) - 46.7 based on the guidelines established by the ADA. If the patient has certain diseases including kidney disease, sickle cell anemia, thalassemia, or is taking medications such as dapsone, erythropoietin, or iron, eAG should not be evaluated. Reason For Referral No Information Medications Medication SIG (Take, Route, Frequency, Duration) Notes Start Date End Date Status Glimepiride 1 MG 1 tablet with breakf ast or the first main meal of the day Orally Once a day Active Farxiga 10 MG 1 tablet Orally Once a day Active Gemtesa 75 MG 1 tablet Orally Once a day 11/15/2024 Active Vitamin D 50 MCG (1999) 2 tab(s) oral ly once a day Active Atorvastatin Calcium 40 MG 1 tablet Oral ly Once a day; Duration: 90 days Active Aspir-Low 81 MG 1 tab(s) orally oce a day Active Omeprazole 40 MG 1 cap(s) orally Two times a day; Duration: 90 days Active Finasteride 5 MG 1 tab(s) orally once a day Active Lisinopril 20 MG 1 tablet Orally Once a day; Duration: 90 days Active Align - as directed Orally A ctive Immunizations Vaccine Route Administration Date Status Comme nts COVID 19 Moderna Unknown 12/05/2020 Administered COVID 19 Moderna Unknown 06/05/2021 Administered DT, 7 YEARS OR OLDER Unknown 10/29/1996 Administered Fluzone High Dose (65yr and older) IM Intramuscular 06/10/2019 Administered Fluzone High Dose (65yr and older) Unknown 05/26/2020 Administered Fluzone High Dose (65yr and older) Unknown 07/06/2021 Administered Fluzone High Dose (65yr and older) IM Intramuscular 06/17/2022 Administered Fluzone High Dose (65yr and older) IM Intramuscular 05/28/2023 Administered Fluzone High Dose (65yr and older) IM Intramuscular 06/09/2024 Administered PNEUMOVAX 23 VACCINE IM Intramuscular 05/26/2011 Administered PNEUMOVAX 23 VACCINE IM Intramuscular 11/25/2011 Administered PNEUMOVAX 23 VACCINE IM Intramuscular 06/08/2020 Administered Prevnar (PCV13) IM Intramuscular 12/11/2016 Administered Prevnar (PCV20) IM Intramuscular 06/09/2024 Administered Shingrix Unknown 03/19/2019 Administered Shingrix Unknown 06/14/2019 Administered Tetanus Tdap-Adacel (over 7yrs) IM Intramuscular 01/31/2015 Administered Expecting grandjudah soon. Problems Problem Type SNOMED Code ICD Code Onset Dates Problem Status W/U Status Risk Notes Problem Essential hypertension (05506076) HTN [Hypertension] (401.9) Active confirmed Problem Type II diabetes mellitus without complication (489727468) Type 2 diabetes mellitus without complications (E11.9) Active confirmed Problem Essential hypertension (21264395) Essential (primary) hypertension (I10) Active confirmed Problem Overactive bladder (370955256) Overactive bladder (N32.81) Active confirmed Problem Vitamin D deficiency (95991230) Vitamin D deficiency (E55.9) Active confirmed Problem Vitamin B12 deficiency (089000914) Vitamin B12 deficiency (E53.8) Active confirmed Problem Hypertension (25624716) Hypertension (I10) Active confirmed Problem Iron deficiency anemia (13573029) Iron deficiency anemia (D50.9) Active confirmed Problem Obese class I (200340449708206) BMI 33.0-33.9,adult (Z68.33) Active confirmed Problem Male erectile disorder (970208937) Male erectile disorder (F52.21) Active confirmed Problem Benign prostatic hyperplasia (876177630) BPH (benign prostatic hyperplasia) (N40.0) Active confirmed Problem Hearing loss (10570283) Hearing loss (H91.90) Active confirmed Problem Primary generalised osteoarthritis (232355927) 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) Active confirmed Problem Hyperlipidemia (37786960) Other hyperlipidemia (E78.4) Active confirmed Problem Hyperlipidemia (30500241) Hyperlipidemia, unspecified (E78.5) Active confirmed Problem Screening for malignant neoplasm of prostate (917536255) Encounter for screening for malignant neoplasm of prostate (Z12.5) Active confirmed Problem Hyperlipidemia due to type 2 diabetes mellitus (disorder) (869691288052192) Hyperlipidemia associated with type 2 diabetes mellitus (E11.69) Active confirmed Problem Type II diabetes mellitus without complication (960192433) Type 2 diabetes mellitus without complication (E11.9) Active confirmed Problem Irritable bowel syndrome (19784558) Irritable bowel syndrome (K58.9) Active confirmed Problem Body mass index 30.00 to 34.99 (076778573294682) BMI 34.0-34.9,adult (Z68.34) Active confirmed Problem Peptic ulcer disease (07678659) Peptic ulcer disease (K27.9) Active confirmed Problem Dyslipidemia (914005117) Dyslipidemia (E78.5) Active confirmed Problem Noncompliance with dietary regimen (finding) (851945063) Noncompliance with dietary restriction (Z91.11) Active confirmed Problem Chronic kidney disease stage 3A (disorder) (524327830) CKD stage 3a, GFR 45-59 ml/min (N18.31) Active confirmed Vital Signs Heart Rate 80 /min 06/09/2024 Blood pressure diastolic 78 mm Hg 12/08/2024 Height 65 in 12/08/2024 Blood pressure systolic 126 mm Hg 12/08/2024 Weight 200.4 lbs 12/08/2024 BMI 33.34 kg/m2 12/08/2024 Encounters Encounter Location Date Provider Diagnosis [address] [id number] 06/06/2024 Maicol Quinn Type 2 diabetes tiffanie itus without complications E11.9 ; Hypertension I10 ; Iron deficiency anemia D50.9 ; Vitamin D deficiency E55.9 ; Vitamin B12 deficiency E53.8 and Dyslipidemia E78.5 [facility] [address] [id number] 06/09/2024 Maicol Quinn Hyperlipidemia associated with type 2 diabetes mellitus E11.69 ; Essential (primary) hypertension I10 ; Hyperlipidemia, unspecified E78.5 ; Type 2 diabetes mellitus without complications E11.9 ; Vitamin B12 deficiency E53.8 ; Vitamin D deficiency E55.9 ; Irritable bowel syndrome K58.9 and Encounter for immunization Z23 [address] [id number] 10/25/2024 Maicol Quinn Type 2 diabetes tiffanie itus without complications E11.9 and Irritable bowel syndrome K58.[address] [place] [id number] 12/02/2024 Maicol Quinn Essential (primary) hypertension I10 ; Hyperlipidemia, unspecified E78.5 ; Type 2 diabetes mellitus without complication E11.9 ; Vitamin B12 deficiency E53.8 ; Vitamin D deficiency E55.9 and Inflammatory disease of prostate, unspecified N41.9 [facility] [address] [facility] [address] [facility] [address] [place], [place] [id number] 12/08/2024 R Eris Quinn Adult general medica l examination Z00.00 [...] Overactive bladder N32.81 and BMI 33.0-33.9,adult Z68.33 [facility] [address] [facility] [address] [facility] [address] [place], [place] [id number] 07/19/2024 R Eris Quinn [facility] [address] [facility] [address] [facility] [address] [place], [place] [id number] 11/14/2024 R Eris [place] [facility] [address] [facility] [address] [facility] [address] [place], [place] [id number] 11/15/2024 R Eris [place] [facility] [address] [facility] [address] [facility] [address] [place] [id number] 11/23/2024 R Eris Quinn Type 2 diabetes tiffanie itus without complications E11.9 [facility] [address] [facility] [address] [facility] [address] [place], [place] [id number] 12/01/2024 R Eris Quinn Assessments Encounter Date Diagnosis (ICD Code) Assessment Notes Treatment Notes Treatment Clinical Notes Section Notes 06/09/2024 Essential (primary) hypertension (ICD-10 - I10) 10/25/2024 Type 2 diabetes mellitus without complications (ICD-10 - E11.9) 10/25/2024 Irritable bowel syndrome (ICD-10 - K58.9) 11/23/2024 Type 2 diabetes mellitus without complications (ICD-10 - E11.9) 12/02/2024 Essential (primary) hypertension (ICD-10 - I10) 06/09/2024 Hyperlipidemia associated with type 2 diabetes mellitus (ICD-10 - E11.69) 12/02/2024 Hyperlipidemia, unspecified (ICD-10 - E78.5) 12/08/2024 Hyperlipidemia associated with type 2 diabetes mellitus (ICD-10 - E11.69) 12/08/2024 Adult general medical examination (ICD-10 - Z00.00) Patient instructed to return to office Annually for Annual Wellness Visits to include annual screenings of Pain assessment, Functional Ability assessment, Cognitive Ability assessment, Fall Risk assessment, Depression screening and Bladder control screening. 12/02/2024 Type 2 diabetes mellitus without complication (ICD-10 - E11.9) 12/08/2024 Essential (primary) hypertension (ICD-10 - I10) 06/09/2024 Hyperlipidemia, unspecified (ICD-10 - E78.5) 06/06/2024 Type 2 diabetes mellitus without complications (ICD-10 - E11.9) 06/06/2024 Hypertension (ICD-10 - I10) 06/09/2024 Type 2 diabetes mellitus without complications (ICD-10 - E11.9) Blood sugars not well-controlled with A1c at 8.3%. Reinforced diet and weight loss 12/08/2024 Hyperlipidemia, unspecified (ICD-10 - E78.5) 12/02/2024 Vitamin B12 deficiency (ICD-10 - E53.8) 12/08/2024 Type 2 diabetes mellitus without complications (ICD-10 - E11.9) A1c has increased to >10 due to noncompliance with diet and taking the glimepiride. He agrees to start on the glimepiride. Reinforced diet and weight loss 06/09/2024 Vitamin B12 deficiency (ICD-10 - E53.8) Start OTC Vit B12 supplement 1000mcg daily 12/02/2024 Vitamin D deficiency (ICD-10 - E55.9) 06/06/2024 Iron deficiency anemia (ICD-10 - D50.9) 06/09/2024 Vitamin D deficiency (ICD-10 - E55.9) 06/06/2024 Vitamin D deficiency (ICD-10 - E55.9) 12/02/2024 Inflammatory disease of prostate, unspecified (ICD-10 - N41.9) 12/08/2024 Vitamin B12 deficiency (ICD-10 - E53.8) Start OTC Vit B12 supplement 1000mcg daily 12/08/2024 Vitamin D deficiency (ICD-10 - E55.9) 06/09/2024 Irritable bowel syndrome (ICD-10 - K58.9) 06/06/2024 Vitamin B12 deficiency (ICD-10 - E53.8) 06/06/2024 Dyslipidemia (ICD-10 - E78.5) 06/09/2024 Encounter for immunization (ICD-10 - Z23) 12/08/2024 CKD stage 3a, GFR 45-59 ml/min (ICD-10 - N18.31) 12/08/2024 BPH (benign prostatic hyperplasia) (ICD-10 - N40.0) 12/08/2024 Overactive bladder (ICD-10 - N32.81) 12/08/2024 BMI 33.0-33.9,adult (ICD-10 - Z68.33) Plan Of Treatment Next Appt Details Provider Name:Maicol Sandoval, 06/08/2025 09:30:00 AM, [address] [facility] [address] [facility], [address], [place], [place], [id number], Insurance Providers Payer Name Payer Address Payer Phone Subscriber Number Group Number Insured Name Patient Relationship to Insured Coverage Start Date Coverage End Date [facility] [id number] [place] [address] [id number] SHRUTI VALERA Self - patient is the insured Medications Administered Medication Instructions Date of Administration Dosage Notes B-12 06/09/2022 1 mL B-12 06/17/2022 1 mL B-12 06/23/2022 1 mL B-12 06/30/2022 1 mL B-12 05/28/2023 1 mL Medical (General) History Medical History History ICD Code Hypertension Type 2 Diabetes Obesity Hyperlipidemia Kidney Stones Osteoarthritis BPH 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 Sharma Overactive bladder Chronic kidney disease Surgical History Surgery Date(Month/Year) tonsillectomy 1974 C-scope - hemorrhoids 2004 Green light laser prostatectomy/ Dr. Choi ins 05/05/2019 EGD - pyloric channel ulcer and duodenal mass/ Dr. Sharma 05/2022 C-scope - internal hemorrhoids, rare div erticulosis 05/2022 Polypectomy 11/28/2022 Hospitalization History Reason Date(Month/Year) [place] [place] [facility]-enlarged prostate 03/2019
--- OUTSIDE RECORDS SUMMARY | 2025-04-11 11:17 | XMS_ITS | Encounter Summary ---
Author Organization [email or web address] ([place], [place], [place], [place]) Address [address] [place] [address] Care Team Providers Care Riveter Automobile Brakes Name Role Phone Unavailable Primary Care Provider Unavailabl e Encounter Details Date Type Department Care Team (Late st Contact Info) Description 05/05/2019 Transcribed Document [facility] [place] Family Medicine [facility] [place] [address] ProviderSam MD [address] [place] [address] Social History Tobacco Use Types Packs/Day Years Used Date Smoking Tobacco: Never Assessed Sex and Gender Information Value Date Recorded Sex Assigned at Male 02/20/2022 5:24 PM CDT Legal Sex Male 6:43 PM CDT Gender Identity Male 02/20/2022 5:24 PM CDT Sexual Orientation Not on file documented as of this encounter Miscellaneous Notes * Cerner Conversion Note - Sam ProviderMD - 05/05/2019 6:03 PM CDT Patient Education Materials Follows: Green Light Laser Prostate Treatment Green light [...] including vitamins, herbs, eye drops, creams, and [id number] medicines. ??? Any problems you or family [...] Up to 2 hours before the procedure ? you may continue to drink clear liquids, such as water, clear fruit juice, black coffee, and plain tea. Eating and drinking restrictions Follow instructions from your health care provider about eating and drinking, which may include: ??? 8 hours before the procedure ? stop eating heavy meals or foods such as meat, fried foods, or fatty foods. ??? 6 hours before the procedure ? stop eating light meals or foods, such as toast or cereal. ??? 6 hours before the procedure ? stop drinking milk or drinks that contain milk. ??? 2 hours before the procedure ? stop drinking clear liquids. Medicines ??? Ask [...] 11/16/2008 Document Revised: 08/29/2017 Document Reviewed: 08/29/2017 Elsevier Interactive Patient Education ? 2017 [employer] documented in this encounter Plan of Treatment Not on file documented as of this encounter Visit Diagnoses Not on filedocumented in this encounter
--- OUTSIDE RECORDS SUMMARY | 2025-04-11 11:17 | XMS_ITS | Encounter Summary ---
Author Organization [employer] ([place], [place], [place], [place]) Address [address] [place] [address] Care Team Providers Care Hydraulic Engineer Name Role Phone Unavailable Primary Care Provider Unavailabl e Encounter Details Date Type Department Care Team (Late st Contact Info) Description 05/05/2019 Transcribed Document [facility] [place] [facility] [place] [address] ProviderSam MD [address] [place] [address] Social History Tobacco Use Types Packs/Day [...] Historical ProviderMD - 05/05/2019 2:58 PM CDT [facility] Main OR PostOp Summary Primary Physician: TERRI CROSS MD-URO Finalized Date/Time: 05/05/19 18:48:22 Pt. Name: HUSEYIN VALERA /Sex: 1950 Male Med Rec #: [id number] Physician: TERRI CROSS MD-URO Financial #: [id number] Pt. Type: O Room/Bed: Admit/Disch: 05/05/19 12:30:00 - Institution: [facility] Main OR PostOp Case Times Entry 1 In PACU II 05/05/19 17:53:00 Ready for PACU II 05/05/19 18:30:00 Discharge Discharge from PACU 05/05/19 18:36:00 II Last Modified By: JOSEOCTAVIO MARINO RN 05/05/19 18:48:19 Finalized By: OCTAVIO JOSE, RN Document Signatures Signed By: OCTAVIO JOSE RN 05/05/19 18:48 Electronically signed by [facility] Conversion Grocery Clerk Selling Cerner at 12/11/2022 3:13 PM CDT documented in this encounter Plan of Treatment Not on file documented as of this encounter Visit Diagnoses Not on filedocumented in this encounter
--- OUTSIDE RECORDS SUMMARY | 2025-04-11 11:18 | XMS_ITS | Clinical Summary ---
Author Organization [employer] ([place], [place], [place], [place]) Address [address] [place] [address] Care Team Providers Care Gravity Prospecting Observer Helper Name Role Phone Unavailable Primary Care Provider Unavailabl e Social History Tobacco Use Types Packs/Day Years Used Date Smoking Tobacco: Never Assessed Sex and Gender Information Value Date Recorded Sex Assigned at Male 02/20/2022 5:24 PM CDT Legal Sex Male 6:43 PM CDT Gender Identity Male 02/20/2022 5:24 PM CDT Sexual Orientation Not on file Plan of Treatment Not on file
--- OUTSIDE RECORDS SUMMARY | 2025-04-11 11:18 | XMS_ITS | Referral Summary ---
Author Organization [employer] ([place], [place], [place], [place]) Address [address] [place] [address] Care Team Providers Care Production Control Planner Name Role Phone Unavailable Primary Care Provider [...]
[2025-04-11 11:41] LABS: Hematocrit 48.7 % (42.0-52.0); Hemoglobin 15.4 g/dL (14.1-18.0); Immature Granulocytes % 0.3 %; Mean Corpuscular HGB Conc 31.6 g/dL (31.8-35.4); Mean Corpuscular Hemoglobin 28.3 pg (27.0-31.2); Mean Corpuscular Volume 89.4 fl (80-94); Nucleated Red Blood Cells % 0 %; Platelet Count 160 K/mm3 (142-424); Red Blood Count 5.45 M/mm3 (4.60-6.20); Red Cell Distribution Width-SD 46.0 fL; White Blood Count 7.0 K/mm3 (4.8-10.8)
[2025-04-11 11:55] LABS: Alanine Aminotransferase 37 U/L (12-78); Albumin Level 4.5 g/dl (3.5-5.0); Albumin/Globulin Ratio 1.6 (1.1-1.8); Alkaline Phosphatase 135 U/L (38-126); Anion Gap 14.3 mEq/L (5-15); Aspartate Amino Transferase 54 U/L (17-59); Bilirubin,Total 1.0 mg/dl (0.2-1.3); Blood Urea Nitrogen 20 mg/dl (9-20); Calcium 9.6 mg/dl (8.4-10.2); Carbon Dioxide 28 mmol/L (22.0-30.0); Chloride 104 mmol/L (98-107); Creatine Kinase 52 U/L (55-170); Creatinine Clearance Estimated 53 mL/min (50-200); Creatinine,Serum 1.70 mg/dl (0.66-1.25); Estimated Glomerular Filt Rate 40 ml/min (>60); GFR (African American) 48 ML/MIN (>60); Globulin 2.8 g/dL (1.3-3.2); Glucose 148 mg/dl (74-100); Lipase 83 U/L (23-300); Potassium 4.3 mmoL/L (3.5-5.1); Sodium 142 mmol/L (136-145); Total Protein,Serum 7.3 g/dl (6.3-8.2)
[2025-04-11 12:07] LABS: Troponin I < 0.01 ng/ml (0.00-0.034)
[2025-04-11 12:11] LABS: RBC Morphology Normal; Total Cells Counted 100
--- NOTE | 2025-04-11 12:14 | XR_ITS ---
FINAL REPORT CLINICAL HISTORY: Chest pain COMPARISON: 06/08/2018 FINDINGS: SINGLE VIEW CHEST The heart is normal in size. The mediastinum is unremarkable. The lungs are clear. There is no pneumothorax. IMPRESSION: No acute process. Reviewed, Interpreted and Dictated by Bala Larkin MD Transcribed by Velia Arreaga Authenticated and [facility]
--- NOTE | 2025-04-11 12:18 | ECG_ITS ---
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 Exam: Resting ECG HR:105 bpm ECG Measurements Heart Rate 105 AXES [place] 190 P 47 QRSd 146 QRS -6 QT 351 T 10 QTc 412 Conclusion Sinus tachycardia Normal [place] RBBB No STEMI Electronically signed by : Dayron Morrison, 04/11/2025 16:32:37
--- NOTE | 2025-04-11 12:21 | ED_ITS ---
Discharge Plan Disposition Patient Disposition: Home, Self-Care Condition: Good Prescriptions Prescriptions: No Action lisinopril 20 mg tablet 20 mg PO DAILY aspirin 81 mg tablet,delayed release (DR/EC) 81 mg PO DAILY tamsulosin 0.4 mg capsule 0.4 mg PO DAILY omeprazole 40 mg capsule,delayed release(DR/EC) 40 mg PO DAILY Patient Comments: TAKE 1 CAPSULE BY MOUTH ONCE DAILY atorvastatin 40 mg tablet 40 mg PO DAILY ferrous sulfate [FeroSul] 325 mg (65 mg iron) tablet 325 mg PO BID Patient Comments: TAKE 1 TABLET BY MOUTH TWICE DAILY finasteride 5 mg tablet 5 mg PO DAILY Patient Comments: TAKE 1 TABLET BY MOUTH ONCE DAILY metformin 500 mg tablet extended release 24 hr 500 mg PO BID diphenhydramine-acetaminophen [Tylenol PM Extra Strength] 25-500 mg Tablet 1 tab PO HS PRN (Reason: .) Referrals Follow up/Referrals: Jose Alfredo Quinn MD [Primary Care Provider, Medical] - See instructions Adonay Braxton MD [Staff Physician, Cardiology] - See instructions Activity Restrictions/Add. Instructions Additional Instructions/Restrictions: Your heart enzymes and CT scan were normal. Your kidney function is higher than it was the last time you were here. I want you to drink lots of water at home, and follow up with your primary care doctor in the next week to have a repeat kidney function panel. Today your kidney function (creatinine) was 1.7 for reference. If you have any new or worsening symptoms please return to the ER for further evaluation. Given the fact that you have cardiac risk factors, have an EKG with a right bundle branch block, and are having thoracic pains I do want you to establish care with a assistant professor of life sciences. You can call the number provided above to follow up with Dr. Braxton in clinic. Clinical Impressions Clinical Impression: Acute shoulder pain, Creatinine elevation Print Language Print Language: Romansh Discharge ED Provider: Dayron Morrison Adult HPI General Chief complaint: Weakness Stated complaint: shoulder pain,shaking,top of head hurts Time Seen by Provider: 04/11/25 11:15 Mode of Arrival: Ambulatory Source of Information: Patient Description of Symptoms (Recalled from ER Triage Doc. by RN): reports this morning after taking meds and going upstairs to get ready he had an episode where he felt warm from chest to head and had pain that radiated from both shoulders. Pt also experienced shaking/tremors from torso to upper extremities. This episode lasted about 30 minutes. Pt states that it has since resolved and has had no more symptoms since leaving his home to come to ED. History of Present Illness HPI narrative: This is a 74-year-old male patient, with past medical history of hypertension, hyperlipidemia, and type 2 diabetes, who is presenting to the emergency department today for evaluation of multiple complaints. The patient states that prior to arrival he began experiencing pain in his bilateral shoulders described to be in the trapezius region. He states that after the onset of the shoulder pain he began experiencing intermittent headaches with tremulous shaking and numbness and tingling throughout his thorax and bilateral upper extremities. He never did experience overt chest pain or shortness of breath. He has not had any lower extremity erythema or pitting edema. He has never been evaluated formally by assistant professor of life sciences and states that he has never been told that he has underlying heart disease. He has not had any overt abdominal pain, nausea, vomiting, or diarrhea. No fevers. No cough, congestion, or production of phlegm. Related Data Home Medications ?Medication ?Instructions ?Recorded ?Confirmed aspirin 81 mg tablet,delayed 81 mg PO DAILY heart heal th 04/12/19 11/28/22 release lisinopril 20 mg tablet 20 mg PO DAILY HTN 04/12/19 11/28/22 tamsulosin 0.4 mg capsule 0.4 mg PO DAILY bph 04/12/19 11/28/22 omeprazole 40 mg capsule,delayed 40 mg PO DAILY GERD 1 11/28/22 release atorvastatin 40 mg tablet 40 mg PO DAILY Cholesterol 1 09/07/21 11/28/22 ferrous sulfate 325 mg (65 mg 325 mg PO BID Supplement 07/08/22 11/28/22 iron) tablet (FeroSul) diphenhydramine 25 1 tab PO HS PRN . 08/13/22 0 11/28/22 mg-acetaminophen 500 mg tablet (Tylenol PM Extra Strength) finasteride 5 mg tablet 5 mg PO DAILY . 08/13/2203/15 metformin 500 mg tablet,extended 500 mg PO BID Diabete s 08/13/22 11/28/22 release 24 hr Allergies Allergy/AdvReac Type Severity Reaction Status Date / Time No Known Allergies Allergy Verified 04/11/25 11:14 [facility] Disclaimer: The information contained in this section may have been updated after the patient was seen, as this information can be updated by other users. Medical History Allergies Diabetes mellitus, type 2 Family history of GERD History of anemia History of COVID-19 History of hypertension Hyperlipidemia Hypertension Osteoarthritis of right knee Uses hearing aid Surgical History History of colonoscopy History of esophagogastroduodenoscopy (EGD) History of prostate surgery History of surgery History of tonsillectomy Family History Other Family history of heart disease Social History Smoking Status: Former smoker alcohol intake: never substance use type: denies use current occupational status: retired Travel in the last 8 weeks?: None household members: spouse housing: house marital status: education level: high school caffeine: Yes special cara needs: No agree to transfusion: No do you feel safe at home: Yes victim of physical abuse: No victim of emotional abuse: No victim of sexual abuse: No would you like helpful sources: No Have you lived/traveled outside US in past 30 days?: No Contact w/someone who lives/traveled outside US past 30 days?: No Exposure to someone with infectious disease in past 14 days?: No Do you have a fever (greater than 100.4 F or 38 C)?: No Have you tested positive for COVID-19?: No Exposed to someone with COVID-19 in past 14 days?: No Do you have a sore throat?: No Do you have a cough?: No Do you have any weakness?: No Do you have any diarrhea?: No Are you experiencing any unusual bleeding?: No Do you have any muscle aches/pain?: No Do you have any abdominal pain?: No Are you experiencing loss of taste or smell?: No Other Medical History Have you received the Flu Vaccine for this season: Yes Have you received the Pneumonia Vaccine: Yes ROS Obtained: Yes Systems reviewed as appropriate & no additional complaints except as documented Physical Exam General General appearance: other (See MDM) Respiratory Respiratory exam: Present other (See MDM) Cardiovascular Cardiovascular exam: Present other (See MDM) Neurological Exam Neurological exam: Present other (See MDM) Medical Decision Making Medical Records Medical records reviewed: Yes I reviewed the patient's medical records. Screening: Per USPSTF and CDC recommendations, given the prevalence of disease in our region, it is our hospital?s policy to screen for HIV and viral Hepatitis for all patients aged 18 and over and those with ongoing risk factors. Pb Inquiry Pt receiving controlled substance: No Pb was queried for this patient: No Vital Signs: 04/11/25 11:15 04/11/25 15:40 Temperature 97.8 F 98 F Temperature Source Oral Oral Pulse Rate 70 Pulse Rate [Left Brachial] 93 H Respiratory Rate 16 17 Blood Pressure 118/59 L Blood Pressure [Left Arm] 140/72 Blood Pressure Mean [Left Arm] 94 Blood Pressure Source [Left Arm] Automatic Cuff 02 Sat by Pulse Oximetry 97 Oxygen Delivery Method Room Air Room Air Lab Data Lab Results 04/11/25 11:32: WBC 7.0, RBC 5.45, Hgb 15.4, Hct 48.7, MCV 89.4, MCH 28.3, MCHC 31.6 L, RDW 14.1, Plt Count 160, MPV 10.4, Neut % (Auto) 85.7 H, Lymph % (Auto) 6.0 L, Sauk % (Auto) 4.7, Eos % (Auto) 2.9, Baso % (Auto) 0.4, Neut # (Auto) 6.0, Lymph # (Auto) 0.4 L, Sauk # (Auto) 0.3, Eos # (Auto) 0.2, Baso # (Auto) 0.0, Total Counted 100, Neutrophils % (Manual) 88 H, Lymphocytes % (Manual) 9 L, Monocytes % (Manual) 2, Eosinophils % (Manual) 1, Platelet Estimate Normal, RBC Morphology Normal, Sodium 142, Potassium 4.3, Chloride 104, Carbon Dioxide 28, Anion Gap 14.3, BUN 20, Creatinine 1.70 H, Estimated Creat Clear 53, Estimated GFR 40 L, Est GFR ( Amer) 48 L, Glucose 148 H, Calcium 9.6, Total Bilirubin 1.0, AST 54, ALT 37, Alkaline Phosphatase 135 H, Total Creatine Kinase 52 L, Troponin I < 0.01, Total Protein 7.3, Albumin 4.5, Globulin 2.8, Albumin/Globulin Ratio 1.6, Lipase 83, HCV Ab DUDLEY w/Rflx PCR Qn Negative, HIV Ag/Ab Combo Qual Negative 04/11/25 14:20: Troponin I < 0.01 04/11/25 11:32 04/11/25 11:32 Orders (Tests/Meds): ED MEDICATIONS Discontinued Medications Generic Name Dose Route Start Last Admin Trade Name Freq PRN Reason Stop Dose Admin Aspirin 325 mg 04/11/25 12:30 04/11/25 12:32 Aspirin 325mg Tablet PO 04/11/25 12:31 325 mg ONCE ONE Administration Lactated Ringer's 500 mls @ 999 mls/hr 04/11/25 14:55 04/11/25 15:04 Lactated Ringer's 1000 Ml Bag IV 04/11/25 15:25 Not Given .Q31M ONE Iopamidol 80 ml 04/11/25 12:41 04/11/25 12:41 Iopamidol-370 (76%);100ml Bottle IV 04/11/25 12:42 80 ml ONCE ONE Administration Sodium Chloride 10 ml 04/11/25 12:41 04/11/25 12:42 Sodium Chloride 0.9% 10ml Syr (Rad Only) IV 05/11/25 12:40 10 ml NEEDED PRN Administration Maintain IV Site Sodium Chloride 50 ml 04/11/25 12:41 04/11/25 12:41 0.9 % Sodium Chloride 50 Ml Vial IV 04/11/25 12:42 50 ml ONCE ONE Administration ORDERS Category Date Time Status CT angio chest PE protocol Stat Cat Scan 04/11/25 12:23 Completed Chest XR -- portable [XR chest portable] Stat Exams 04/11/25 12:14 Completed CBC w/Auto Diff [Complete Blood Count Auto Diff] Stat Lab 04/11/25 11:32 Completed CK [Creatine Kinase] Stat Lab 04/11/25 11:32 Completed CMP [Comprehensive Metabolic Panel] Stat Lab 04/11/25 11:32 Completed HIV Combo Routine Lab 04/11/25 11:32 Completed Hepatitis C Ab Qual. W/ RFX Routine Lab 04/11/25 11:32 Completed Lipase Stat Lab 04/11/25 11:32 Completed Troponin I Q3H Lab 04/11/25 14:20 Completed Troponin I Stat Lab 04/11/25 11:32 Completed ECG Data Tracing #1: I reviewed this ECG and interpreted as documented below: EKG personally interpreted by me demonstrates normal sinus rhythm with a rate of 98 bpm, normal axis, no VA prolongation, wide QRS with right bundle branch block morphology, no ST elevation. There is an RSR prime pattern in lead III. Tracing #2: I reviewed this ECG and interpreted as documented below: EKG personally turbid by me demonstrates sinus tachycardia with a rate of 105 bpm, normal axis, no VA prolongation, wide QRS with right bundle branch block morphology, no QTc prolongation. No ST elevation. There is an RSR prime pattern in lead III. EKG largely unchanged from prior. HEART Score History (anamnesis): Slightly suspicious ECG: Non-specific disturbance Age: >65 years Risk factors: 3 or more risk factors Troponin: </= normal limit HEART Score: 5 Medical Decision Narrative: LateralIn summary, this is a 74-year-old male patient who is presenting to the emergency department today with complaints of shoulder pain in the location of the trapezius muscles with numbness and tingling as well as tremulous movements of the thorax and upper extremities. Comorbidities include hypertension, hyperlipidemia, and type 2 diabetes which increases patient's risk of morbidity. On initial evaluation of the patient they were resting comfortably in no acute distress and nontoxic in appearance. They are hemodynamically stable, saturating well room air, and are neurologically intact. On physical examination of the patient he is mentating appropriately and has a GCS of 15. He is overall well-appearing. His heart and lungs are clear to auscultation bilaterally. His abdomen is soft and nontender to palpation. He has no lower extremity erythema or edema. Differential diagnosis includes ACS/ND, pulmonary embolism, aortic dissection, electrolyte derangement, acute kidney injury, among others. Workup was initiated with hematologic labs as well as an EKG and a chest x-ray. We did initially provide the patient with 324 mg of aspirin given my concern that this could be an atypical presentation of acute coronary syndrome. Labs were personally interpreted by me and demonstrate no actionable abnormalities. He has no leukocytosis. No evidence of anemia. No electrolyte derangements. Creatine kinase is within normal limits. Troponin and delta troponin are both less than 0.01. Lipase is within normal limits. Please see my interpretation of the patient's creatinine below. I did review the patient's EKG as listed above in this chart. In summary, there is a right bundle branch block present. I am unable to see any prior EKGs on this patient's. I have asked the patient if he has a known right bundle branch block and he has never heard of this term. Therefore, we will assume that this is a new right bundle branch block and work the patient up as such. Given this finding and the patient's atypical pain, I did proceed with a CTA of the chest. CTA of the chest was personally turbid by me. I do not see any saddle pulmonary embolus or obvious aortic dissection. Official radiology read is in agreement and states that there is no acute abnormality. I have informed the patient of his results and he is ultimately reassured. Regarding the patient's labs, his creatinine is 1.7. The most recent creatinine that we have on the patient is from 3 years ago and is 1.2. I have asked the patient if he is privy to his baseline creatinine and he is not. I have offered the patient fluid rehydration with a liter of lactated Ringer's followed by serial renal function test to determine whether his creatinine is improving. He has declined this intervention at this time and would like to go home and fluid rehydrate and follow-up with his primary care physician in a week to have his creatinine rechecked. I do feel like this is a failure decision. I have asked him to return to the emergency department if he has any new or worsening symptoms. He acknowledges understanding. At this time all questions have been answered and all parties are agreeable with the decision to discharge home Critical Care Critical Care Time Critical Care Time: No
--- NOTE | 2025-04-11 12:23 | CT_ITS ---
FINAL REPORT TECHNIQUE: The patient was injected with IV contrast. Axial images were obtained through the chest in a PE protocol. 3-D reconstruction images were also performed. Individualized dose reduction techniques using automated exposure control or adjustment of the MA and/or KV according to patient's size were employed. CLINICAL HISTORY: Chest pain, RBBB on EKG FINDINGS: Mediastinal vasculature is adequately opacified. No pulmonary artery filling defects are identified to suggest PE. There is no aortic dissection. There is no axillary adenopathy. There is no hilar or mediastinal adenopathy. The heart size is normal. There is dense coronary artery calcification. There is no pericardial or pleural effusion. Limited images of the upper abdomen are unremarkable. No suspicious infiltrate or nodule is identified. There is scarring in the lung bases. IMPRESSION: No pulmonary embolus or dissection. Scarring in the lung bases. Reviewed, Interpreted and Dictated by Bala Larkin MD Transcribed by Velia Arreaga Authenticated and [facility]
[2025-04-11] MEDS: ASPIRIN 325MG TABLET 325 MG PO (12:32)
[2025-04-11] MEDS: 0.9 % SODIUM CHLORIDE 50 ML VIAL IV (12:41)
[2025-04-11] MEDS: IOPAMIDOL-370 (76%);100ML BOTTLE 80 ML IV (12:41)
[2025-04-11] MEDS: SODIUM CHLORIDE 0.9% 10ML SYR (RAD ONLY) 10 ML IV (12:42)
[2025-04-11 15:07] LABS: Troponin I < 0.01 ng/ml (0.00-0.034)
[2025-04-11 15:40] VITALS: BP 118/59; PULSE 70; RESP 17; TEMP 36.6; O2SAT 98
[2025-04-11 16:53] LABS: Hepatitis C Ab Qual. W/ RFX NEGATIVE (Negative)
== END 2025-04-11 15:40 | disposition home or self-care (01) ==
PROVIDERS: Emergency Provider Student in an Organized Health Care Education/Training Program; PCP Family Medicine
DX: M25.511 Pain in right shoulder (principal); M25.512 Pain in left shoulder; R79.89 Other specified abnormal findings of blood chemistry; R00.0 Tachycardia, unspecified; I45.10 Unspecified right bundle-branch block
CPT/HCPCS: 71045; 71275; 80053; 82550; 83690; 84484; 85007; 85025; 85027; 86803; 87389; 93005; 99284; 99285; Q9967

== ENCOUNTER 2025-05-09 14:09 | Outpatient (CLI) | payer MEDICARE, SELFPAY | END 2025-05-09 23:59 | disposition home or self-care (01) | LOC: RT 14:10 | PROVIDERS: PCP Family Medicine; Visit Provider Internal Medicine | DX: I49.1 Atrial premature depolarization (principal); I47.19 Other supraventricular tachycardia; I49.3 Ventricular premature depolarization; I44.1 Atrioventricular block, second degree; I45.89 Other specified conduction disorders; R94.31 Abnormal electrocardiogram [ECG] [EKG] | CPT/HCPCS: 93270 ==

== ENCOUNTER 2025-05-22 14:45 | Outpatient (CLI) | payer MEDICARE, SELFPAY ==
--- OUTSIDE RECORDS SUMMARY | 2024-10-25 10:30 | XMS_ITS ---
Author Organization [facility] Address [address] [place] [id number] Care Team Providers Care Physician Coder Name Role Phone Maicol Quinn Primary Care Provider [phone] Allergies No Known Allergies Results Component Value [...] Duration: 30 day(s) 10/25/2024 Active Vital Signs Weight 202.6 lbs 10/25/2024 Blood pressure systolic 126 mm Hg 10/26/19 25 Blood pressure diastolic 70 mm Hg 025 Height 65 in 10/25/2024 BMI 33.71 kg/m2 10/25/2024 Encounters Encounter Location Date Provider Diagnosis [facility] [address] [facility] [address] [place] [id number] 10/25/2024 Maicol Quinn Type 2 diabetes mellitus [...] Provider Name:Maicol Sandoval, 06/08/2025 09:30:00 AM, [address] [facility] [address] [facility], [address], [place], [phone], Progress Notes * MEMO VALERANIDIAOB:1950 (74 yo [...] 11/28/2022. * Hospitalization/Major Diagno stic [facility] [place] [facility]. * Family History: F ather: 53 yrs, [place]. M other: alive 95 yrs, [place], [place]. P aternal Grand Father: . P aternal [...] G 2211 Complex e/[place] [address] CAPILLARY BLOOD DRAW, 54926 CBC WITH AUTO DIFF, G8752 MOST RECENT SYSTOLIC BP < 140MM HG, G8754 MOST RECENT DIASTOLIC BP < 90MM HG * Follow Up: A s scheduled next month * Images: Billing Information: * Visit Code: 97181 Office Visit, Est Pt., Level 4. * Procedure Codes: G2211 Complex e/[place]. [address] CAPILLARY BLOOD DRAW. 46453 CBC WITH AUTO DIFF. G8752 MOST RECENT SYSTOLIC BP < 140MM HG. G8754 MOST RECENT DIASTOLIC BP < 90MM HG. * Electronic signature of Maicol Quinn MD on 05/22/2025 at 02:48 PM EDT Sign off status: Pending * Provider: Maicol Quinn M.D. Date: 10/25/2024 Generated for Zack flores/Jac/Seferinoitting on: 0 05/22/2025 02:48 PM EDT History and Physical Notes * Examination Category Sub-Category Detail Notes Category Not es General Examination Heart: RSR Lungs: clear to auscultatio n Abdomen: obese, soft, not dis tended, nontender General Appearance: NAD
--- OUTSIDE RECORDS SUMMARY | 2024-12-02 05:10 | XMS_ITS ---
Author Organization [facility] Address [address] [place] [id number] Care Team Providers Care Gear Tester Name Role Phone Maicol Quinn Primary Care Provider [phone] Results Component Value Reference Range Notes P-Vitamin B12 Reviewed date:12/08/2024 01:52:44 PM Interpretation: Performing Lab: Notes/Report: Test performed by [facility] [address] [place] [address] , [address], [place] [address] Brayden Delcid MD, Manager Night CLIA: [id number] Vitamin B12 603 216-4849 pg/mL P-Comprehensive Metabolic Pa geronimo (CMP) Reviewed date:12/08/2024 01:52:44 PM Interpretation: Performing Lab: Notes/Report: Test performed by [facility] [address] [place] [address] , [address], [place] [address] Brayden Delcid MD, Manager Night CLIA: [id number] Sodium 141 135-145 mmol/L Potassium 4.5 3.5-5.3 [...] Interpretation: Performing Lab: Notes/Report: Test performed by [facility] [address] [place], [place] [address] [place] [address] Brayden Delcid MD, Manager Night CLIA: [id number] Hemoglobin A1C 10.2 <5.7 % The following HbA1c ranges recommended by the [place] Diabetes Association (ADA) may be used as an aid in the diagnosis of diabetes mellitus. HbA1c Suggested Diagnosis >=6.5% Diabetic 5.7% - 6.4% Pre-Diabetic <5.7% Non-Diabetic P-Lipid Panel Reviewed date:12/08/2024 01:52:44 PM Interpretation: Performing Lab: Notes/Report: Test performed by [facility] [address] [place] [address] [address], [place] [address] Brayden Delcid MD, Manager Night CLIA: [id number] Cholesterol 139 <200 mg/dL Triglycerides 146 <150 [...] Interpretation: Performing Lab: Notes/Report: Test performed by [facility] [address] [place] [address] , [address], [place] [address] Brayden Delcid MD, Manager Night CLIA: [id number] PSA 1.82 <4.00 ng/mL Please note this is an ultrasensitive PSA assay with a lower limit of detection of 0.014 ng/mL. This test is performed by the José Miguel ECLIA methodology. Values obtained with different assay methods or kits cannot be directly compared. P-Microalbumin/Creatinine, R andom Urine Sample Reviewed date:12/08/2024 01:52:44 PM Interpretation: Performing Lab: Notes/Report: Test performed by [facility] [address] [place] [address] , [address], [place] [address] Brayden Delcid MD, Manager Night CLIA: [id number] Albumin/Creatinine Ratio, Urine 22 0-30 ug/mg Microalbumin, Urine, Random 2.6 Creatinine, Urine 118.6 P-Vitamin D 25-Hydroxy Reviewed date:12/08/2024 01:52:44 PM Interpretation: Performing Lab: Notes/Report: Test performed by [facility] [address] [place] [address] [address], [place] [address] Brayden Delcid MD, Manager Night CLIA: [id number] Vitamin D 25-Hydroxy 70.1 30.0-100.0 ng/mL Interpretation of Vitamin D 25 [place]: < 20 ng/mL - Deficiency 20 - 29 ng/mL - Insufficiency 30 - 100 ng/mL - Sufficiency > 100 ng/mL - Super-therapeutic- toxicity may occur above this level. Clinical correlation required. Estimated Average Glucose Reviewed date:12/08/2024 01:52:44 PM Interpretation: Performing Lab: Notes/Report: Test performed by [facility] [address] [place] [address] [address], [place] [address] Brayden Delcid MD, Manager Night CLIA: [id number] Estimated Average Glucose (eAG) 246 Estimated Average [...] Active Encounters Encounter Location Date Provider Diagnosis [facility] [address] [place] [address] 36 [facility] [address] [place] [id number] 12/02/2024 Maicol Quinn Essential (primary) hypertension I10 [...] Provider Name:Maicol Sandoval, 06/08/2025 09:30:00 AM, [address]10 [facility] 36 [facility], [address], [place], [phone], Progress Notes * RAUL VALERAOB:1950 (74 yo M)Acc No.[id number]:12/02/2024 Patient: SHRUTI HOUSTON Provider: Maicol Quinn M.D. :1950 A ge:74 Y S ex:Male Date:12/02/2024 Address:[address] [place] [address] [place] RUANOLM-[id number] Subjective: * Chief Complaints: * 1 . [...] AM)* Value Reference Range V itamin B12 026 989-7432 - pg/mL * Maicol Quinn 12/08/2024 1 [...] stimated Average Glucose 246 - mg/dL * [facility], support 12/03/2024 04:40:13 : This order was created by the Interface. Maicol Quinn 12/08/2024 1:52:33 PM >discussed with patient during office visit * Procedure Codes: 3 046F HEMOGLOBIN A1C LEVEL > 9.0% * Images: Billing Information: * Visit Code: * Procedure Codes: 3046F HEMOGLOBIN A1C LEVEL > 9.0%. * Electronic signature of Maicol Quinn MD on 05/22/2025 at 02:49 PM EDT Sign off status: Pending * Provider: Maicol Quinn M.D. Date: 12/02/2024 Generated for Zack ng/Fajuanag/eTransmitting on: 0 05/22/2025 02:49 PM EDT
--- OUTSIDE RECORDS SUMMARY | 2024-12-08 05:15 | XMS_ITS ---
Author Organization [facility] Address [address] [place] [id number] Care Team Providers Care Bacteriology Teacher Name Role Phone Maicol Quinn Primary Care [...] Problem Chronic kidney disease stage 3A (disorder) (802352494) CKD stage 3a, GFR 45-59 ml/min (N18.31) Active confirmed Problem Benign prostatic hyperplasia (773077127) BPH (benign prostatic hyperplasia) (N40.0) Active confirmed Problem Overactive bladder (336737429) Overactive bladder (N32.81) Active confirmed Problem Obese class I (364923917834269 ) BMI 33.0-33.9,adult (Z68.33) Active confirmed Vital Signs Weight 200.4 lbs 12/08/2024 Blood pressure systolic 126 mm Hg 12/09/19 25 Blood pressure diastolic 78 mm Hg 025 Height 65 in 12/08/2024 BMI 33.34 kg/m2 12/08/2024 Encounters Encounter Location Date Provider Diagnosis [facility] [address] [place], [place] [id number] 12/08/2024 Maicol Quinn Adult general medica l [...] 06/08/2025 09:30:00 AM, [address] [facility], [address] , [place], [place], [id number], Progress Notes * RAUL VALERAOB:1950 (74 yo M)Acc No.[id number]:12/08/2024 Annual Wellness Visit Patient: MEMO HOUSTONY Provider: Maicol Quinn M.D. :1950 A ge:74 Y S ex:Male Date:12/08/2024 Address:[place], [id number] Subjective: * Chief Complaints: * 1 . [...] 11/28/2022. * Hospitalization/Major Diagno stic [facility] [place] [facility] * Family History: F ather: 53 yrs, [place]. M other: alive 95 yrs, [place], [place]. P aternal Grand Father: . P aternal [...] veractive bladder - N32.81 1 1. B [place] 33.0-33.9,adult - Z68.33 Plan: * Treatment: 2. [...] * Images: Billing Information: * Visit Code: 08529 Office Visit, Est Pt., Level 3. Modifiers: [...] Quinn M.D. Date: 0 12/08/2024 Generated for Delioi mark/Jac/eTransmitting on: 0 05/22/2025 02:49 PM EDT History and Physical Notes * HPI (History of Present Illness) Category Sub-Category Detail Notes Category Not es HPI Patient is here today for a [facility] 6 month check up and a [...]
--- OUTSIDE RECORDS SUMMARY | 2025-04-18 07:00 | XMS_ITS ---
Author Organization [facility] Address [address] [place] [phone] Care Team Providers Care Media Analytics Manager Name Role Phone Maicol Quinn Primary Care Provider Allergies Allergen (clinical drug ingredient) Drug/Non Drug Allergy documented on EMR Reaction Allergy Type Onset Date Status metformin metFORMIN diarrhea Drug Allergy Active Results Component Value Reference Range Notes P-Basic Metabolic Panel (BMP ) Reviewed date:04/25/2025 08:42:38 AM Interpretation: Performing Lab: Notes/Report: Test performed by [employer], [employer] [address] [place] [address] , [address], [place] [address] Brayden Delcid MD, Spice Mixer CLIA: [id number] Sodium 142 135-145 mmol/L Potassium 5.3 3.5-5.3 [...] Status Risk Notes Problem Chronic renal insufficiency (762813570) Chronic renal insufficiency (N18.9) Active confirmed Vital Signs Weight 201.6 lbs 04/18/2025 Blood pressure systolic 140 mm Hg 04/18/20 25 Blood pressure diastolic 78 mm Hg 025 Heart Rate 50 /min 04/18/2025 Height 65 in 04/18/2025 BMI 33.54 kg/m2 04/18/2025 Encounters Encounter Location Date Provider Diagnosis [facility] [address] [facility] [address] [place] [phone] 04/18/2025 Maicol Quinn Chronic renal insufficiency N18.9 Assessments Encounter Date Diagnosis (ICD Code) Assessment Notes Treatment Notes Treatment Clinical Notes Section Notes 04/18/2025 Chronic renal insufficiency (ICD-10 - N18.9) Plan Of Treatment Next Appt Details Follow Up: as scheduled, Veronica son: Provider Name:Maicol Sandoval, 06/08/2025 09:30:00 AM, [address] [facility] [address] [facility], [address], [place], [phone], Progress Notes * RAUL VALERAOB:1950 (74 yo M)Acc No.[id number]:04/18/2025 Patient: Deven GUTIÉRREZHUSEYIN Provider: Maicol Quinn M.D. :1950 A ge:74 Y S ex:Male Date:04/18/2025 Address:[id number] Subjective: * Chief Complaints: * 1 . [...] 11/28/2022. * Hospitalization/Major Diagno stic Procedure: [facility] ER-enlarged prostate 03/2019. * Family History: F [...] * Images: Billing Information: * Visit Code: 17445 Office Visit, Est Pt., Level 3. * Procedure Codes: G2211 Complex e/m visit add on. 1036F TOBACCO NON-USER. * Electronic signature of Maicol Quinn MD on 05/22/2025 at 02:49 PM EDT Sign off status: Pending * Provider: Maicol Quinn M.D. Date: 04/18/2025 Generated for Zack flores/Jac/eTransmitting on: 05/22/2025 02:49 PM EDT History and Physical Notes * Examination Category Sub-Category Detail Notes Category Not es Cardiology Lungs: clear, no rales or wheezes Heart sounds: RRR, normal S1, S2 Extremities: no leg edema Murmur, click , gallop: none General Appearance: pleasant, NAD
--- OUTSIDE RECORDS SUMMARY | 2025-05-22 14:49 | XMS_ITS | Patient Health Record ---
[facility] Organization [facility] Address [address] [place] [id number] Care Team Providers Care Rubber Compounder Mixer Name Role Phone Maicol Quinn Primary Care Provider [phone] Allergies Allergen (clinical drug ingredient) Drug/Non Drug [...] - 38 plat 135 100 - 400 P-Basic Metabolic Panel (BMP ) Reviewed date:04/25/2025 08:42:38 AM Interpretation: Performing Lab: Notes/Report: Test performed by [facility] [address] [place] [address] , [address], [place] [address] Brayden Delcid MD, Cupola Repairer CLIA: [id number] Sodium 142 135-145 mmol/L Potassium 5.3 3.5-5.3 mmol/L Chloride 106 97-108 mmol/L CO2 26 20-32 mmol/L Glucose 113 65-99 mg/dL BUN 20 8-23 mg/dL Creatinine 1.65 0.70-1.30 mg/dL Calcium 10.0 8.6-10.4 mg/dL eGFR by Creatinine 43 >59 mL/min/1.73m2 P-Vitamin D 1,25-Dihydroxy a nd 25-Hydroxy Reviewed date:06/09/2024 05:05:33 PM Interpretation:Normal Performing Lab: Notes/Report: Test performed by [facility] [address] [place] [address] [place] [address] Brayden Delcid MD, Cupola Repairer CLIA: [id number] Vitamin D 25-Hydroxy 53.8 30.0-100.0 ng/mL Interpretation [...] Interpretation:Normal Performing Lab: Notes/Report: Test performed by [facility] [address] [place] [address] [address], [place] [address] Brayden Delcid MD, Cupola Repairer CLIA: [id number] Cholesterol 141 <200 mg/dL Triglycerides 137 <150 [...] Interpretation:Normal Performing Lab: Notes/Report: Test performed by [facility] [address] [place] [address] , [address], [place] [address] Brayden Delcid MD, Cupola Repairer CLIA: [id number] Vitamin B12 047 458-0717 pg/mL Glycohemoglobin A1c (in hous e) Reviewed [...] Interpretation: Performing Lab: Notes/Report: Test performed by [facility] [address] [place] [address] , [address], [place] [address] Brayden Delcid MD, Cupola Repairer CLIA: [id number] Vitamin B12 592 877-5080 pg/mL P-Comprehensive Metabolic Pa geronimo (CMP) Reviewed date:12/08/2024 01:52:44 PM Interpretation: Performing Lab: Notes/Report: Test performed by [facility] [address] [place] [address] , [address], [place] [address] Brayden Delcid MD, Cupola Repairer CLIA: [id number] Sodium 141 135-145 mmol/L Potassium 4.5 3.5-5.3 [...] Interpretation: Performing Lab: Notes/Report: Test performed by [facility] [address] [place] [address] , [address], [place] [address] Brayden Delcid MD, Cupola Repairer CLIA: [id number] Hemoglobin A1C 10.2 <5.7 % The following HbA1c ranges recommended by the [place] [employer] (ADA) may be used as an aid in the diagnosis of diabetes mellitus. HbA1c Suggested Diagnosis >=6.5% Diabetic 5.7% - 6.4% Pre-Diabetic <5.7% Non-Diabetic P-Lipid Panel Reviewed date:12/08/2024 01:52:44 PM Interpretation: Performing Lab: Notes/Report: Test performed by [facility] [address] [place] [address] , [address], [place] [address] Brayden Delcid MD, Cupola Repairer CLIA: [id number] Cholesterol 139 <200 mg/dL Triglycerides 146 <150 [...] Interpretation: Performing Lab: Notes/Report: Test performed by [facility] [address] [place], [place] [address] [place] , [address], [place] [address] Brayden Delcid MD, Cupola Repairer CLIA: [id number] PSA 1.82 <4.00 ng/mL Please note this is an ultrasensitive PSA assay with a lower limit of detection of 0.014 ng/mL. This test is performed by the José Miguel ECLIA methodology. Values obtained with different assay methods or kits cannot be directly compared. P-Microalbumin/Creatinine, R andom Urine Sample Reviewed date:12/08/2024 01:52:44 PM Interpretation: Performing Lab: Notes/Report: Test performed by [facility] [address] [place], [place] [address] [place] , [address], [place] [address] Brayden Delcid MD, Cupola Repairer CLIA: [id number] Albumin/Creatinine Ratio, Urine 22 0-30 ug/m g Microalbumin, Urine, Random 2.6 Creatinine, Urine 118.6 P-Vitamin D 25-Hydroxy Reviewed date:12/08/2024 01:52:44 PM Interpretation: Performing Lab: Notes/Report: Test performed by [facility], [address] , [address], [place] [address] Brayden Delcid MD, Cupola Repairer CLIA: [id number] Vitamin D 25-Hydroxy 70.1 30.0-100.0 ng/mL Interpretation of Vitamin D 25 OH: < 20 ng/mL - Deficiency 20 - 29 ng/mL - Insufficiency 30 - 100 ng/mL - Sufficiency > 100 ng/mL - Super-therapeutic- toxicity may occur above this level. Clinical correlation required. Estimated Average Glucose Reviewed date:12/08/2024 01:52:44 PM Interpretation: Performing Lab: Notes/Report: Test performed by [facility] [address] [place] [address] , [address], [place] [address] Brayden Delcid MD, Cupola Repairer CLIA: [id number] Estimated Average Glucose (eAG) 246 Estimated Average Glucose (eAG) is calculated using the equation eAG = (28.7 x HbA1c) - 46.7 based on the guidelines established by the ADA. If the patient has certain diseases including kidney disease, sickle cell anemia, thalassemia, or is taking medications such as dapsone, erythropoietin, or iron, eAG should not be evaluated. Reason For Referral Diagnosis 1 Right bundle branch block (RBBB) (I45.10) Referral Organization [facility] Referring Provider First Name Maicol Schulte Referring Provider Last Name Kai Referring Provider Speciality [facility] Referred Provider Specialty Cardiovascul ar Disease General Notes Charleen Pena 2024 09:55:06 AM > faxed to [facility] Cardiology, Charleen Pena 05/01/2025 11:07:19 AM > 05/09/2025 at 01:15pm Referral Priority Routine Medications Medication SIG (Take, Route, Frequency, Duration) Notes Start Date End Date Status Align - as directed Orally A ctive Aspir-Low 81 MG 1 tab(s) orally oce a day Active Vitamin D 50 MCG (1999) 2 tab(s) oral ly once a day Active Finasteride 5 MG 1 tab(s) orally once a day Active Glimepiride 1 MG 1 tablet with breakf ast or the first main meal of the day Orally Once a day Active Farxiga 10 MG 1 tablet Orally Once a day Active Omeprazole 40 MG Take 1 capsule by [facility] twice daily; Duration: 90 Active Gemtesa 75 MG 1 tablet Orally Once a day 11/15/2024 Active Lisinopril 20 MG Take 1 tablet by [facility] once daily; Duration: 90 Active Atorvastatin Calcium 40 MG 1 tablet Oral ly Once a day; Duration: 90 days Active Immunizations Vaccine Route Administration Date Status Comme nts Tetanus Tdap-Adacel (over 7yrs) IM Intramuscular 01/31/2015 Administered Expecting grandesterbies soon. Shingrix Unknown 03/19/2019 Administered Shingrix Unknown 06/14/2019 Administered Prevnar (PCV20) IM Intramuscular 06/09/2024 Administered Prevnar (PCV13) IM Intramuscular 12/11/2016 Administered PNEUMOVAX 23 VACCINE IM Intramuscular 05/26/2011 Administered PNEUMOVAX 23 VACCINE IM Intramuscular 11/25/2011 Administered PNEUMOVAX 23 VACCINE IM Intramuscular 06/08/2020 Administered Fluzone High Dose (65yr and older) IM Intramuscular 06/10/2019 Administered Fluzone High Dose (65yr and older) Unknown 05/26/2020 Administered Fluzone High Dose (65yr and older) Unknown 07/06/2021 Administered Fluzone High Dose (65yr and older) IM Intramuscular 06/17/2022 Administered Fluzone High Dose (65yr and older) IM Intramuscular 05/28/2023 Administered Fluzone High Dose (65yr and older) IM Intramuscular 06/09/2024 Administered DT, 7 YEARS OR OLDER Unknown 10/29/1996 Administered COVID 19 Moderna Unknown 12/05/2020 Administered COVID 19 Moderna Unknown 06/05/2021 Administered Problems Problem Type SNOMED Code ICD Code Onset Dates Problem Status W/U Status Risk Notes Problem Essential hypertension (89995963) HTN [Hypertension] (401.9) Active confirmed Problem Type II diabetes mellitus without complication (842476528) Type 2 diabetes mellitus without complications (E11.9) Active confirmed Problem Essential hypertension (94016595) Essential (primary) hypertension (I10) Active confirmed Problem Overactive bladder (484051199) Overactive bladder (N32.81) Active confirmed Problem Vitamin D deficiency (63302143) Vitamin D deficiency (E55.9) Active confirmed Problem Vitamin B12 deficiency (644051610) Vitamin B12 deficiency (E53.8) Active confirmed Problem Chronic renal insufficiency (278526278) Chronic renal insufficiency (N18.9) Active confirmed Problem Hypertension (38957613) Hypertension (I10) Active confirmed Problem Iron deficiency anemia (48098462) Iron deficiency anemia (D50.9) Active confirmed Problem Obese class I (354821679114830) BMI 33.0-33.9,adult (Z68.33) Active confirmed Problem Male erectile disorder (469531774) Male erectile disorder (F52.21) Active confirmed Problem Benign prostatic hyperplasia (184181546) BPH (benign prostatic hyperplasia) (N40.0) Active confirmed Problem Right bundle branch block (25401342) Right bundle branch block (RBBB) (I45.10) Active confirmed Problem Hearing loss (79056228) Hearing loss (H91.90) Active confirmed Problem 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) Active confirmed Problem Hyperlipidemia (42791140) Other hyperlipidemia (E78.4) Active confirmed Problem Hyperlipidemia (53014930) Hyperlipidemia, unspecified (E78.5) Active confirmed Problem Screening for malignant neoplasm of prostate (752699776) Encounter for screening for malignant neoplasm of prostate (Z12.5) Active confirmed Problem Hyperlipidemia due to type 2 diabetes mellitus (disorder) (714555540984451) Hyperlipidemia associated with type 2 diabetes mellitus (E11.69) Active confirmed Problem Type II diabetes mellitus without complication (820516696) Type 2 diabetes mellitus without complication (E11.9) Active confirmed Problem Irritable bowel syndrome (03459396) Irritable bowel syndrome (K58.9) Active confirmed Problem Body mass index 30.00 to 34.99 (303673607915089) BMI 34.0-34.9,adult (Z68.34) Active confirmed Problem Peptic ulcer disease (53975964) Peptic ulcer disease (K27.9) Active confirmed Problem Dyslipidemia (002840423) Dyslipidemia (E78.5) Active confirmed Problem Noncompliance with dietary regimen (finding) (829582064) Noncompliance with dietary restriction (Z91.11) Active confirmed Problem Chronic kidney disease stage 3A (disorder) (071801237) CKD stage 3a, GFR 45-59 ml/min (N18.31) Active confirmed Vital Signs Heart Rate 50 /min 04/18/2025 Blood pressure diastolic 78 mm Hg 04/18/2025 Height 65 in 04/18/2025 Blood pressure systolic 140 mm Hg 04/18/2025 Weight 201.6 lbs 04/18/2025 BMI 33.54 kg/m2 04/18/2025 Encounters Encounter Location Date Provider Diagnosis [facility] [address] [place] [address] [place] [id number] 06/06/2024 R Eris Quinn Type 2 diabetes tiffanie itus without complications E11.9 ; Hypertension I10 ; Iron deficiency anemia D50.9 ; Vitamin D deficiency E55.9 ; Vitamin B12 deficiency E53.8 and Dyslipidemia E78.5 [facility] [address] [place] [address] [place] [id number] 06/09/2024 R Eris Quinn Hyperlipidemia associated with type 2 diabetes mellitus E11.69 ; Essential (primary) hypertension I10 ; Hyperlipidemia, unspecified E78.5 ; Type 2 diabetes mellitus without complications E11.9 ; Vitamin B12 deficiency E53.8 ; Vitamin D deficiency E55.9 ; Irritable bowel syndrome K58.9 and Encounter for immunization Z23 [facility] [address] [place] [address] [place] [id number] 10/25/2024 R Eris Quinn Type 2 diabetes tiffanie itus without complications E11.9 and Irritable bowel syndrome K58.[address] [place] [id number] 12/02/2024 R Eris Quinn Essential (primary) hypertension I10 ; Hyperlipidemia, unspecified E78.5 ; Type 2 diabetes mellitus without complication E11.9 ; Vitamin B12 deficiency E53.8 ; Vitamin D deficiency E55.9 and Inflammatory disease of prostate, unspecified N41.9 [facility] [address] [place] [address] [place] [id number] 12/08/2024 R Eris Quinn Adult general medica [...] Overactive bladder N32.81 and BMI 33.0-33.9,adult Z68.33 [facility] [address] [place], [place] [id number] 04/18/2025 R Eris Kai Chronic renal insufficiency N18.9 [facility] [address] [place], [place] [id number] 07/19/2024 R Eris Kai [facility] [address] [place], [place] [id number] 11/14/2024 R Eris Kai [facility] [address] [place], [place] [id number] 11/15/2024 R Eris Kai [facility] [address] [place], [place] [id number] 11/23/2024 R Eris Kai Type 2 diabetes tiffanie itus without complications E11.9 [facility] [address] [place], [place] [id number] 12/01/2024 R Eris Kai [facility] [address] [place], [place] [id number] 04/25/2025 R Eris Kai [facility] [address] [place], [place] [id number] 05/09/2025 R Eris Kai Assessments Encounter Date Diagnosis (ICD Code) Assessment [...] assessment, Depression screening and Bladder control screening. 04/18/2025 Chronic renal insufficiency (ICD-10 - N18.9) 12/02/2024 Type 2 diabetes mellitus without complication [...] 12/02/2024 Vitamin B12 deficiency (ICD-10 - E53.8) 06/09/2024 Vitamin B12 deficiency (ICD-10 - E53.8) Start OTC Vit B12 supplement 1000mcg daily 12/02/2024 Vitamin D deficiency (ICD-10 - E55.9) 12/08/2024 Type 2 diabetes mellitus without complications (ICD-10 - E11.9) A1c has increased to >10 due to noncompliance with diet and taking the glimepiride. He agrees to start on the glimepiride. Reinforced diet and weight loss 06/06/2024 Iron deficiency anemia (ICD-10 - D50.9) [...] Name:Maicol Sandoval, 06/08/2025 09:30:00 AM, [address], [address], [place], [place], [id number], Insurance Providers Payer Name Payer Address Payer Phone Subscriber Number Group Number Insured Name Patient Relationship to Insured Coverage Start Date Coverage End Date [employer] [address] [place] [address] [id number] [id number] SHRUTI VALERA Self - patient is the [...] Surgery Date(Month/Year) tonsillectomy 1974 C-scope - hemorrhoids 2005 Green light laser prostatectomy/ Dr. 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 Sharma 05/2022 C-scope - internal hemorrhoids, rare div erticulosis 05/2022 Polypectomy 11/28/2022 Hospitalization History Reason Date(Month/Year) [place], [place] ER-enlarged prostate 03/2019
--- OUTSIDE RECORDS SUMMARY | 2025-05-22 14:50 | XMS_ITS | Data Portability ---
Author Organization [facility] [place] [facility] Address [address] [place] [address] Care Team Providers Care Stacker Attendant Name Role Phone OSCAR JOSEFA Primary Care Provider Assessment Encounter Date Assessment Date Assessment LastModified by Organization Details LastModified Time 12/02/2023 12/02/2023 PREOPERATIVE DIAGNOSIS: Acquired phimosis. POSTOPERATIVE DIAGNOSIS: Acquired phimosis. PROCEDURE: Circumcision. ANESTHESIA: General. Also with 0.25% Marcaine plain penile block. SURGEON: Chema Cross M.D. SPECIMEN: Foreskin. BRIEF HISTORY: The patient with progressive phimosis preventing retraction and hygiene. He presents today for circumcision. OPERATIVE NOTE: After satisfactory general anesthesia, genital area was clipped, prepped and draped in a standard manner. The phimotic ring was crushed in midline dorsally and then incised. Prior to this, the intended proximal extent of the circumcision was marked with a marking pen circumferentially. The phimotic ring was relaxed and the foreskin was then retractable. He had a large amount of stigmata beneath the foreskin. This was cleansed and removed. The area was then prepped again with Betadine solution. A subcoronal incision was made circumferentially down to subcutaneous tissue to free up the shaft skin. The foreskin was then brought back over the glans and the proximal incision made circumferentially. These were then connected with electrocautery. The foreskin was removed. Conservative point coagulation was performed as necessary. Minimal bleeding throughout. The skin edges were then reapproximated in 4 quadrants with 3-0 chromic. Interrupted sutures were placed as necessary for nice apposition. All was hemostatic. Neosporin was placed around these incision sites. Penile block was placed, 0.25% Marcaine plain. [id number] Not available 12/03/2023 03:43:41 Plan of Treatment Reminders Order Date Submit Date Provider Last Modified By Organization Details Last Modified Time Details Appointments RECHECK 2024 01:30P M CHEMA CROSS MD Not available Not available Not available Lab urinalysi s panel, auto 2023 024 [email or web address] [facility], [address], [place], [address], 06/30/2024 23:02:10 urinalysi s panel, auto 2023 024 [email or web address] [facility], [address], [address], [place], [address], 12/30/2023 13:54:49 urinalysi s panel, auto 2023 024 [email or web address] [facility], [address], [address], [place], [address], 11/02/2023 16:02:42 Referral None recorded. Procedures None recorded. Surgeries None recorded. Imaging None recorded. Medication Orders None recorded. Patient TargetsNo targets recorded. Patient Instructions Encounter Date Encounter Id Patient Instructions Last Modified By Organization Details Last Modified Time 06/29/2024 [id number] learning about depression [email or web address] Not available 06/30/2024 23:02:10 Reason for Referral None Reported. Results Created Date Observation Date Name Description Value Unit Range Abnormal Flag Note LastModifiedBy Organization Detail LastModifiedTime 11/02/19 24 11/02/2023 urina lysis panel , auto Unknown Analyte Clean Catch Not Available [facility] [address], [place], [address], 11/02/2023 15:32:47 11/02/19 24 11/02/2023 urina lysis panel , auto Unknown Analyte Yellow Not Available [facility] [address], [place], [address], 11/02/2023 15:32:47 11/02/19 24 11/02/2023 urina lysis panel , auto Unknown Analyte Clear Not Available [facility] [address], [place], [address], 11/02/2023 15:32:47 11/02/19 24 11/02/2023 urina lysis panel , auto Unknown Analyte 1.015 Not Available [facility] [address], [place], [address], 11/02/2023 15:32:47 11/02/19 24 11/02/2023 urina lysis panel , auto Unknown Analyte 1.003- 1.035 Not Available [facility] [address], [place], [address], 11/02/2023 15:32:47 11/02/19 24 11/02/2023 urina lysis panel , auto Unknown Analyte 5.0 Not Available [facility] [address], [place], [address], 11/02/2023 15:32:47 11/02/19 24 11/02/2023 urina lysis panel , auto Unknown Analyte 5.0-8. 0 Not Available [facility] [address], [place], [address], 11/02/2023 15:32:47 11/02/19 24 11/02/2023 urina lysis panel , auto Unknown Analyte 500 Colin/ul (++) Not Available [facility] [address], [place], [address], 11/02/2023 15:32:47 11/02/19 24 11/02/2023 urina lysis panel , auto Unknown Analyte Negati ve Not Available [facility] [address], [place], [address], 11/02/2023 15:32:47 11/02/19 24 11/02/2023 urina lysis panel , auto Unknown Analyte Negati ve Not Available [facility] [address], [place], [address], 11/02/2023 15:32:47 11/02/19 24 11/02/2023 urina lysis panel , auto Unknown Analyte Negati ve Not Available [facility] [address], [place], [address], 11/02/2023 15:32:47 11/02/19 24 11/02/2023 urina lysis panel , auto Unknown Analyte Trace Not Available [facility] [address], [place], [address], 11/02/2023 15:32:47 11/02/19 24 11/02/2023 urina lysis panel , auto Unknown Analyte Negati ve Not Available [facility] [address], [place], [address], 11/02/2023 15:32:47 11/02/19 24 11/02/2023 urina lysis panel , auto Unknown Analyte 100 mg/dl Not Available [facility] [address], [place], [address], 11/02/2023 15:32:47 11/02/19 24 11/02/2023 urina lysis panel , auto Unknown Analyte Normal Not Available [facility] [address], [place], [address], 11/02/2023 15:32:47 11/02/19 24 11/02/2023 urina lysis panel , auto Unknown Analyte 15 mg/dl (Sm) Not Available [facility] [address], [place], [address], 11/02/2023 15:32:47 11/02/19 24 11/02/2023 urina lysis panel , auto Unknown Analyte Negati ve Not Available [facility] [address], [place], [address], 11/02/2023 15:32:47 11/02/19 24 11/02/2023 urina lysis panel , auto Unknown Analyte Normal Not Available [facility] [address], [place], [address], 11/02/2023 15:32:47 11/02/19 24 11/02/2023 urina lysis panel , auto Unknown Analyte Normal 1 mg/dl Not Available [facility] [address], [place], [address], 11/02/2023 15:32:47 11/02/19 24 11/02/2023 urina lysis panel , auto Unknown Analyte Negati ve Not Available [facility] [address] [place] [address] [address], [place], [address], 11/02/2023 15:32:47 11/02/19 24 11/02/2023 urina lysis panel , auto Unknown Analyte Negati ve Not Available [facility] [address] [place] [address] [address], [place], [address], 11/02/2023 15:32:47 11/02/19 24 11/02/2023 urina lysis panel , auto Unknown Analyte 250 Favian/ul Not Available [facility] [address] [place] [address] [address], [place], [address], 11/02/2023 15:32:47 11/02/19 24 11/02/2023 urina lysis panel , auto Unknown Analyte Negati ve Not Available [facility] [address], [place], [address], 11/02/2023 15:32:47 12/02/19 24 12/02/2023 SURGI ALIS surgical SEE BELOW normal Depar tment of Patho logy Surgi alis Patho logy Repor t NAME: HUSEYIN RUANO PATH. :[id number] Copy to: Diagn osis: Fores kin, excis ion: Kerat inize d squam ous epith elium with incre ased derma l fibro sis and non-s pecif ic subep ithel ial infla mmati on. Clini alis histo ry of phimo sis. SOURC E OF SPECI MEN: FORES KIN CLINI ALIS INFOR MATIO N: PHIMO SIS Gross Descr iptio n: Recei kelvin in forma rocky label ed with the patie nt's name and desig nated as fore skin is a rough ly recta ngula r fragm ent of pink- estrada wrink led skin which is 6.0 x 4.5 x 0.5 cm. The epide rmal surfa ce is unrem arkab le with no disti nct lesio ns or areas of disco lorat ion. Repre senta tive secti ons are submi tted in a singl e casse tte label ed A1. JAB 12/01 05:21 PM Micro scopi c Descr iptio n: A micro scopi c exami natio n has been perfo rmed and the resul t(s) are as noted above . MARISA SUTTON M.D. Rody d Out Date: 12/02 08:27 Page 1 of 1 Not Available [facility] [address] [place] [address], [address], 12/03/2023 08:27:22 12/30/19 24 12/30/2023 urina lysis panel , auto Unknown Analyte Clean Catch Not Available [facility] [address], [address], 12/30/2023 13:10:51 12/30/19 24 12/30/2023 urina lysis panel , auto Unknown Analyte Yellow Not Available [facility] [address], [place], [address], 12/30/2023 13:10:51 12/30/19 24 12/30/2023 urina lysis panel , auto Unknown Analyte Clear Not Available [facility] [address], [address], 12/30/2023 13:10:51 12/30/19 24 12/30/2023 urina lysis panel , auto Unknown Analyte 1.020 Not Available [facility] [address], [place], [address], 12/30/2023 13:10:51 12/30/19 24 12/30/2023 urina lysis panel , auto Unknown Analyte 1.003- 1.035 Not Available [facility] [address], [place], [address], 12/30/2023 13:10:51 12/30/19 24 12/30/2023 urina lysis panel , auto Unknown Analyte 5.0 Not Available [facility] [address], [place], [address], 12/30/2023 13:10:51 12/30/19 24 12/30/2023 urina lysis panel , auto Unknown Analyte 5.0-8. 0 Not Available [facility] [address], [place], [address], 12/30/2023 13:10:51 12/30/19 24 12/30/2023 urina lysis panel , auto Unknown Analyte 25 Colin/ul Trace Not Available [facility] [address], [place], [address], 12/30/2023 13:10:51 12/30/19 24 12/30/2023 urina lysis panel , auto Unknown Analyte Negati ve Not Available [facility] [address], [place], [address], 12/30/2023 13:10:51 12/30/19 24 12/30/2023 urina lysis panel , auto Unknown Analyte Negati ve Not Available [facility] [address], [place], [address], 12/30/2023 13:10:51 12/30/19 24 12/30/2023 urina lysis panel , auto Unknown Analyte Negati ve Not Available [facility] [address], [place], [address], 12/30/2023 13:10:51 12/30/19 24 12/30/2023 urina lysis panel , auto Unknown Analyte Trace Not Available [facility] [address], [place], [address], 12/30/2023 13:10:51 12/30/19 24 12/30/2023 urina lysis panel , auto Unknown Analyte Negati ve Not Available [facility] [address], [place], [address], 12/30/2023 13:10:51 12/30/19 24 12/30/2023 urina lysis panel , auto Unknown Analyte 100 mg/dl Not Available [facility] [address], [place], [address], 12/30/2023 13:10:51 12/30/19 24 12/30/2023 urina lysis panel , auto Unknown Analyte Normal Not Available [facility] [address], [place], [address], 12/30/2023 13:10:51 12/30/19 24 12/30/2023 urina lysis panel , auto Unknown Analyte Negati ve Not Available [facility] [address], [place], [address], 12/30/2023 13:10:51 12/30/19 24 12/30/2023 urina lysis panel , auto Unknown Analyte Negati ve Not Available [facility] [address], [place], [address], 12/30/2023 13:10:51 12/30/19 24 12/30/2023 urina lysis panel , auto Unknown Analyte Normal Not Available [facility] [address], [place], [address], 12/30/2023 13:10:51 12/30/19 24 12/30/2023 urina lysis panel , auto Unknown Analyte Normal 1 mg/dl Not Available [facility] [address], [place], [address], 12/30/2023 13:10:51 12/30/19 24 12/30/2023 urina lysis panel , auto Unknown Analyte 1 mg/dl (+) Not Available [facility] [address], [place], [address], 12/30/2023 13:10:51 12/30/19 24 12/30/2023 urina lysis panel , auto Unknown Analyte Negati ve Not Available [facility] [address], [place], [address], 12/30/2023 13:10:51 12/30/19 24 12/30/2023 urina lysis panel , auto Unknown Analyte 50 Favian/ul Not Available [facility] [address], [place], [address], 12/30/2023 13:10:51 12/30/1912/30/2023 urina lysis panel , auto Unknown Analyte Negati ve Not Available [facility] [address], [place], [address], 12/30/2023 13:10:51 06/29/2006/29/2024 urina lysis panel , auto Unknown Analyte Clean Catch Not Available [facility] [address], [place], [address], 06/29/2024 13:17:49 06/29/2006/29/2024 urina lysis panel , auto Unknown Analyte Yellow Not Available [facility] [address], [place], [address], 06/29/2024 13:17:49 06/29/2006/29/2024 urina lysis panel , auto Unknown Analyte Clear Not Available [facility] [address], [place], [address], 06/29/2024 13:17:49 06/29/2006/29/2024 urina lysis panel , auto Unknown Analyte 1.020 Not Available [facility] [address], [place], [address], 06/29/2024 13:17:49 06/29/2006/29/2024 urina lysis panel , auto Unknown Analyte 1.003- 1.035 Not Available [facility] [address], [place], [address], 06/29/2024 13:17:49 06/29/2006/29/2024 urina lysis panel , auto Unknown Analyte 5.0 Not Available [facility] [address], [place], [address], 06/29/2024 13:17:49 06/29/2006/29/2024 urina lysis panel , auto Unknown Analyte 5.0-8. 0 Not Available [facility] [address], [place], [address], 06/29/2024 13:17:49 06/29/2006/29/2024 urina lysis panel , auto Unknown Analyte Negati ve Not Available [facility] [address], [place], [address], 06/29/2024 13:17:49 06/29/2006/29/2024 urina lysis panel , auto Unknown Analyte Negati ve Not Available [facility] [address], [place], [address], 06/29/2024 13:17:49 06/29/2006/29/2024 urina lysis panel , auto Unknown Analyte Negati ve Not Available [facility] [address], [place], [address], 06/29/2024 13:17:49 06/29/2006/29/2024 urina lysis panel , auto Unknown Analyte Negati ve Not Available [facility] [address], [place], [address], 06/29/2024 13:17:49 06/29/2006/29/2024 urina lysis panel , auto Unknown Analyte Trace Not Available [facility] [address], [place], [address], 06/29/2024 13:17:49 06/29/2006/29/2024 urina lysis panel , auto Unknown Analyte Negati ve Not Available [facility] [address], [place], [address], 06/29/2024 13:17:49 06/29/2006/29/2024 urina lysis panel , auto Unknown Analyte 100 mg/dl Not Available [facility] [address], [place], [address], 06/29/2024 13:17:49 06/29/2006/29/2024 urina lysis panel , auto Unknown Analyte Normal Not Available [facility] [address], [place], [address], 06/29/2024 13:17:49 06/29/2006/29/2024 urina lysis panel , auto Unknown Analyte Negati ve Not Available [facility] [address], [place], [address], 06/29/2024 13:17:49 06/29/2006/29/2024 urina lysis panel , auto Unknown Analyte Negati ve Not Available [facility] [address], [place], [address], 06/29/2024 13:17:49 06/29/2006/29/2024 urina lysis panel , auto Unknown Analyte Normal Not Available [facility] [address], [place], [address], 06/29/2024 13:17:49 06/29/2006/29/2024 urina lysis panel , auto Unknown Analyte Normal 1 mg/dl Not Available [facility] [address], [place], [address], 06/29/2024 13:17:49 06/29/2006/29/2024 urina lysis panel , auto Unknown Analyte 1 mg/dl (+) Not Available [facility] [address], [place], [address], 06/29/2024 13:17:49 06/29/2006/29/2024 urina lysis panel , auto Unknown Analyte Negati ve Not Available [facility] [address], [place], [address], 06/29/2024 13:17:49 06/29/2006/29/2024 urina lysis panel , auto Unknown Analyte Negati ve Not Available [facility] [address], [place], [address], 06/29/2024 13:17:49 06/29/2006/29/2024 urina lysis panel , auto Unknown Analyte Negati ve Not Available [facility] [address], [place], [address], 06/29/2024 13:17:49 01/08/20 24 08/31/2023 MR brain and IAC w/wo contr ast [facility] [facility] [address] [facility] [employer] [address] Amara t Name: HUSEYIN HENSLEY Patimouna t : 951 Patimouna t 57 Orderi ng Provid er: GREGORY Goode SHRUTHI EXAM DATE: 2023 EXAM: MR BRAIN AND IAC W/WO CONTRA ST HISTOR Y: 73-yea r-old male with left-s ided hearin g loss. COMPAR NICK: None. The patien t did not requir e sedati on for this exam. A baseli ne serum creati nine with eGFR was obtain ed prior to inject ion of contra st medium due to the patien ts risk factor s for GERMAN. Calcul ated eGFR at time of exam was gfr 68 FINDIN GS: The ventri cles are mildly to modera tely enlarg ed, and mildly asymme tric. There is no mass, mass effect , or midlin e shift. There is no abnorm al extra- axial fluid, intrac ranial hemorr malorie, or infarc tion. The diffus ion weight ed sequen lilli are normal . There are mild perive ntricu lar white matter change s. After intrav enous admini strati on of [address] ([facility] [address]-0 2), there is no abnorm al enhanc ement in the brain. There is no mass or abnorm al enhanc ement along the crania l nerves or in the merchandising internship al audito ry canals . The merchandising internship al caroti d and basila r flow-v oids are normal . There is normal mucosa l thicke malachi in the parana aby sinuse s. The mastoi d air cells are clear. IMPRES ALVARO: 1. There is mild diffus e cerebr al atroph y and white matter change s in the brain. Interp reted By: Abdi suresh MD Electr onical ly Signed By: Abdi suresh MD on 08/31/19 24 3:22 PM [email or web address] [facility] Radiology [facility] [address] [place], [address], 09/01/2023 16:53:41 Result Notes None recorded. Problems No Known Problems Procedures Surgical History Date Name Laterality Status Provider Name and Address Organization Details Recorded Time 05/05/20 19 CONTACT LASER VAPORIZATION, WITH TRANSURETHRAL RESECTION OF PROSTATE (SURG) completed Alonso Taylor [facility] 05/09/2019 13:56:45 Tonsillectomy completed Julia Obando [facility] 04/13/2019 13:40:01 Imaging Results None recorded. Procedure Notes None recorded. Medical Equipment None Reported. Allergies No known drug allergies Medications Name Sig Start Date Stop Date Status Note LastModified by Organization Details LastModified Time atorvastati n 40 mg tablet TAKE 1 TABLET BY MOUTH ONCE DAILY active Not Available Not Available No t Available metformin 500 mg tablet Take 1 tablet twice a day by oral route. 12/02 completed Not Available Not Available Not Available clindamycin HCl 300 mg capsule TAKE 1 CAPSULE BY MOUTH EVERY 8 HOURS FOR 5 DAYS 12/29 completed Not Available Not Available Not Available valacyclovi r 1 gram tablet 04/13 completed Not Available Not Available Not Available hydrocodone 5 mg-acetamin ophen 325 mg tablet TAKE 1 TABLET BY MOUTH EVERY 6 HOURS active Not Available Not Available No t Available Nystop 100,000 unit/gram topical powder APPLY POWDER TOPICALLY TWICE DAILY 12/02 completed Not Available Not Available Not Available griseofulvi n microsize 500 mg tablet Take 1 tablet every 12 hours by oral route. 03/06 completed Not Available Not Available Not Available lisinopril 20 mg tablet TAKE 1 TABLET BY MOUTH ONCE DAILY active Not Available Not Available No t Available betamethaso ne, augmented 0.05 % topical cream APPLY CREAM TOPICALLY TO AFFECTED AREA TWICE DAILY DIRECTED 12/02 completed Not Available Not Available Not Available triamcinolo ne acetonide 0.5 % topical ointment 04/13 completed Not Available Not Available Not Available ciprofloxac in 500 mg tablet TAKE 1 TABLET BY MOUTH TWICE DAILY 12/02 completed Not Available Not Available Not Available sulfamethox azole 800 mg-trimetho prim 160 mg tablet TAKE 1 TABLET BY MOUTH EVERY 12 HOURS active Not Available Not Available No t Available omeprazole 40 mg capsule,del ayed release TAKE 1 CAPSULE BY MOUTH TWICE DAILY active Not Available Not Available No t Available tramadol 50 mg tablet TAKE 1 TABLET BY MOUTH 4 TIMES DAILY NEEDED active Not Available Not Available No t Available glimepiride 1 mg tablet TAKE 1 TABLET BY MOUTH ONCE DAILY WITH BREAKFAST OR THE FIRST MAIN MEAL OF THE DAY active Not Available Not Available No t Available terbinafine HCl 250 mg tablet TAKE 1 TABLET BY MOUTH ONCE DAILY 12/02 completed Not Available Not Available Not Available tamsulosin 0.4 mg capsule TAKE 1 CAPSULE BY MOUTH TWICE DAILY 03/06 completed Not Available Not Available Not Available glipizide ER 2.5 mg tablet, extended release 24 hr 04/13 completed Not Available Not Available Not Available cephalexin 500 mg capsule 04/13 completed Not Available Not Available Not Available clotrimazol e-betametha sone 1 %-0.05 % topical cream APPLY TO THE AFFECTED AND SURROUNDI NG AREAS OF SKIN BY TOPICAL ROUTE TWICE A DAY IN THE MORNING AND EVENING FOR 2 WEEKS 08/11 completed Not Available Not Available Not Available diclofenac sodium 75 mg tablet,anjum yed release TAKE 1 TABLET BY MOUTH TWICE DAILY 08/11 completed Not Available Not Available Not Available mupirocin 2 % topical ointment APPLY OINTMENT TOPICALLY TWICE DAILY 12/02 completed Not Available Not Available Not Available cefuroxime axetil 500 mg tablet TAKE 1 TABLET BY MOUTH EVERY 12 HOURS 12/02 completed Not Available Not Available Not Available metformin ER 500 mg tablet,exte nded release 24 hr TAKE 2 TABLETS BY MOUTH TWICE DAILY active Not Available Not Available No t Available finasteride 5 mg tablet Take 1 tablet by mouth once daily 2024 active Not Available Not Available Not Avai lable griseofulvi n ultramicros ize 250 mg tablet Take 1 tablet every 8 hours by oral route. 12/02 completed Not Available Not Available Not Available amoxicillin 875 mg-potassiu m clavulanate 125 mg tablet TAKE 1 TABLET BY MOUTH EVERY 12 HOURS FOR 5 DAYS 12/29 completed Not Available Not Available Not Available glipizide 2.5 mg-metformi n 500 mg tablet TAKE 2 TABLETS BY MOUTH TWICE DAILY 12/02 completed Not Available Not Available Not Available glipizide 5 mg-metformi n 500 mg tablet 12/02 completed Not Available Not Available Not Available dutasteride 0.5 mg capsule 03/06 completed Not Available Not Available Not Available aspirin active Not Available Not Avail able Not Available Vitamin D3 active Not Available Not Av ailable Not Available Tylenol PM active Not Available Not Av ailable Not Available vitamin K84-hxhci acid active Not Available Not Available Not Available FeroSul 325 mg (65 mg iron) tablet TAKE 1 TABLET BY MOUTH TWICE DAILY 08/11 completed Not Available Not Available Not Available Shingrix (PF) 50 mcg/0.5 mL intramuscul ar suspension, kit 08/11 completed Not Available Not Available Not Available Fluzone High-Dose Quad 2020 (PF) 240 mcg/0.7 mL IM syringe PHARMACIS T ADMINISTE RED IMMUNIZAT ION ADMINISTE RED AT TIME OF DISPENSIN G 12/02 completed Not Available Not Available Not Available Paxlovid 150 mg-100 mg tablets in a dose pack (Moderate Renal Dose) TAKE 2 TABLETS TOGETHER (ONE 150 MG NIRMATREL VIR TABLETS AND ONE 100 MG RITONAVIR TABLET) BY MOUTH TWICE DAILY FOR 5 DAYS. 08/11 completed Not Available Not Available Not Available Vitals Date Recorded Body height Body mass index (BMI) Body weight Provider Name and Address Organization Details Last Updated DateTime 09/15/2023 167.64 cm 33.1 kg/m2 98288.44 g Sigrid Felder [facility] 09/15/2023 13:54:19 Date Recorded Body height Body mass index (BMI) Body weight Provider Name and Address Organization Details Last Updated DateTime 11/02/2023 167.64 cm 33.1 kg/m2 31736.44 g Elif Malone [facility] 11/02/2023 15:30:31 Date Recorded Body height Body mass index (BMI) Body weight Provider Name and Address Organization Details Last Updated DateTime 12/30/2023 167.64 cm 33.1 kg/m2 70926.44 g Carolynn Mc [facility] 12/30/2023 13:01:46 Date Recorded Body height Body mass index (BMI) Body weight Provider Name and Address Organization Details Last Updated DateTime 06/29/2024 167.64 cm 33.1 kg/m2 90505.44 g Shelby Mojica [facility] 06/29/2024 13:23:23 Social History Question Answer Notes LastModified by [employer] Details LastModified Time Tobacco Smoking Status Never [facility] 13:39:29 How Much Tobacco Do You Chew? None Information not available 04/13/2019 Marital Status Informatio n not available 04/13/2019 What Was The Date Of Your Most Recent Tobacco Screening? 06/29/2024 [email or web address] Information not available 06/29/2024 What Is Your Relationship Status? [email or web address] Information not available 06/29/2024 How Much Tobacco Do You Smoke? No [email or web address] Information not available 06/15/2020 Has Tobacco Cessation Counseling Been Provided? No [email or web address] Information not available 04/15/2021 Have You Recently Traveled Abroad? No Information not available 04/15/2021 Sex: Male Functional Status Question Answer Note LastModified by oBaz Details LastModified Time Do you use any illicit or recreational drugs? No [email or web address] Information not available 04/15/2021 Do you or have you ever used any other forms of tobacco or nicotine? No [email or web address] Information not available 04/15/2021 What is your level of alcohol consumption? None Information not available 04/13/2019 What is your occupation? [facility] [facility] [email or web address] Information not available 04/13/2019 Mental Status None recorded. Family History Relationship Description Onset Age of this Age Resolved Age Notes LastModified by Organization Details LastModified Time Mother Hypertensive disorder [email or web address] Not available 07/24 09:42:49 Mother Diabetes mellitus Not available 07/24 09:43:10 Father Heart disease [email or web address] Not available 07/24 09:43:18 Brother Malignant neoplasm of lung 70 [email or web address] Not available 07/24 09:43:38 Sister Heart disease [email or web address] Not available 07/24 09:44:21 Medical History Condition Response Diabetes Y Arthritis Y Kidney Stones Y High Cholesterol Y Hypertension Y Past Encounters Encounter ID Performer Location Encounter Start Date Encounter Closed Date Diagnosis/Indication Diagnosis SNOMED-CT Code Diagnosis ICD10 Code Diagnosis IMO Codes Diagnosis Note [id number] MD NICHOLAS DON[facility]D [facility] [address] [address] 04/13/2019 12:06:22 04/13/2019 13:44:45 Retention of urine 713009130 R33.9 Benign pro static hyperplasia with outflow obstruction 124025409 N40.1 patient states that it is within a few years since his last PSA. It was well within normal range at that time. [id number] CHEMA CROSS MD SURGERY SCHEDULE [address] [place] [address] 04/20/2019 08:56:03 04/20/2019 08:57:33 [id number] MD [facility]AS [facility] [address],[place] [address] 03/06/2020 14:27:44 03/08/2020 07:33:02 Retention of urine 656252971 R33.9 Irving hematuria 40439190 5 R31.0 flexible local cystoscopy plan as above Benign pro static hyperplasia with outflow obstruction 864983602 N40.1 plan is above [id number] CHEMA CROSS MD SURGERY SCHEDULE [address] [place] [address] 03/14/2020 06:50:53 03/14/2020 06:51:20 [id number] MD [facility] [address],[place] [place] [address] 06/15/2020 09:54:09 06/15/2020 11:12:30 Lower urinary tract symptoms due to benign prostatic hypertrophy 7808804246 9101 N40.1 he will continue with the finasterid e. He'll follow up in 6 months. [id number] MD [facility]OLAS DON[facility] [address],[place] [address] 04/15/2021 11:17:05 04/15/2021 12:02:53 Acute infective cystitis 553055952 N30.00 Benign pro static hyperplasia 736851506 N40.0 Urinary tr act infectious disease 85291639 N39.0 [id number] CHEMA CROSS MD [facility] [address] [address] 05/13/2021 14:03:15 05/13/2021 14:49:24 Urinary tract infectious disease 96691900 N39.0 as above Benign pro static hyperplasia 013092633 N40.0 [id number] CHEMA CROSS MD [facility] [address] [place] [address] RD,[place] [address] 12/02/2021 12:19:24 12/02/2021 13:37:12 Phimosis 487330336 N47.1 [id number] CHEMA CROSS MD [facility] [address] [place] [address],[place] [address] 12/30/2021 11:41:48 12/30/2021 12:26:11 Benign prostatic hyperplasia 586266046 N40.0 doing well following greenlight laser vaporizati on of the prostate TWith finasterid e Phimosis 928939000 N47.1 stable/res olved. He will use Lotrisone cream intermitte ntly as necessary and follow up in 4 months [id number] AURELIANO HAWKINS MD ENT [address] [address] 08/11/2023 09:08:59 08/11/2023 13:04:39 Asymmetrical sensorineural hearing loss 523338138 H90.5 Audiogram reviewed and interprete d from [facility]. Left greater than right with very poor discrimina tion score on the left. Continue hearing aids. MRI head/IACs to r/o acoustic neuroma. F/u afterward Bilateral tinnitus 42822 72803 102 H93.13 [id number] AURELIANO HAWKINS MD ENT [place] [address] [place] [address] 09/15/2023 13:15:22 09/15/2023 15:23:24 Asymmetrical sensorineural hearing loss 367327967 H90.5 Left greater than right with very poor discrimina tion score on the left. MRI reviewed. No acoustic neuroma. Continue hearing aids. F/u prn Bilateral tinnitus 06728 95037 102 H93.13 [id number] CHEMA CROSS MD [facility] [address] [place] [address] 11/02/2023 15:19:06 11/02/2023 16:03:46 Acquired phimosis 193992484 N47.1 We will arrange for adult circumcisi on [id number] CHEMA CROSS MD SURGERY SCHEDULE [address] [place] [address] 12/02/2023 07:58:06 12/02/2023 07:59:03 [id number] CHEMA CROSS MD [facility] [address] [place] [id number] 12/30/2023 12:38:40 12/30/2023 13:53:41 Benign prostatic hyperplasia with outflow obstruction 554155752 N40.1 plan is above Phimosis 110124010 N47.1 Resolved following circumcisi on. Follow-up in 6 months [id number] CHEMA CROSS MD [facility] [address] [place] [address] 06/29/2024 12:48:52 06/29/2024 14:24:22 Benign prostatic hyperplasia with outflow obstruction 696099411 N40.1 plan is above Phimosis 766831507 N47.1 Resolved following circumcisi on. Follow-up in 6 months Health Concerns Section Related Observation LastModified by Organization Detai ls LastModified Time None Recorded Concern Status LastModified by Organization Details LastModified Time None Recorded Advance Directives Directive None Recorded Payers Insurance Date Sequence Insurance Name Policy Number Policy Jordan Covered Member ID Jordan Member ID Guarantor Name 12/02/2021 1 [place] [facility] ACCESS (MEDICARE REPLACEMENT REGIONAL PPO) [id number] Huseyin Frausto [id number] Huseyin Farusto 06/26/2024 1 [place]PO) [id number] Huseyin Frausto [id number] Huseyin W Lisbet Notes Date Note Type Note Provider Name and Address Organization Details Recorded Time 09/15/2023 text/html Chief complaint: Asymmetric hearing lossTiming: a few months, gradual onsetDuration: constantLocation: As>AdSeverity:Quali ty:Context:No fhx of sudden hearing loss, Hx of loud noise exposure for many years, no hx of aural surgery/ trauma/tubesModifyi ng factors: MRI head/IACs 08/31/23Assoc signs and symptoms: hearing loss As>Ad, tinnitus (>20yrs) Au, no otalgia, no otorrhea, no dizziness, no headaches AURELIANO HAWKINS MD [address] [place] [address], [phone], [facility] 09/15/2023 15:13:49 11/02/2023 text/html Patient is here last seen 2 years ago for phimosis and balanitis. That actually cleared after Lotrisone cream but unfortunately has had recurrence of significant stenosis with phimosis and inability to retract his foreskin. He would like to proceed with circumcision. He had greenlight laser vaporization of the prostate by me several years ago and continues to void well. He continues to take finasteride daily. We discussed circumcision. We discussed convalescence. He understands and wishes to proceed. [facility]MA CROSS [facility] [place], [address], [facility] 11/02/2023 16:03:08 12/30/2023 text/html Patient is here 4 weeks following circumcision for phimosis. He is completely healed and is very pleased. He also takes finasteride for obstructive urination symptoms. His urine today is unremarkable. His incision appears to be healing nicely. He has no urologic complaints at this time [facility]MA CROSS [facility] [place], [address], [facility] 12/30/2023 13:55:07 06/29/2024 text/html Patient is here in follow-up of circumcision earlier this year. He had greenlight laser vaporization of prostate several years ago and continues to void well with no nocturia. He is stable from urologic standpoint. He continues to take finasteride. [facility] [place], [address], [facility] 06/30/2024 23:03:03
--- NOTE | 2025-05-22 15:15 | CA_ITS ---
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 EXAM: Comprehensive 2D, Doppler, and color-flow Echocardiogram Foundation Assistant: Sarika Rao CRT Ht: 5 ft 6 in Wt: 201lbs BSA: 2.00 BP: 185/72 mmHg Indications: RBBB ABN EKG 2D Dimensions LA Volume 15.40 mL LA Volume Index 7.50 mL/m2 (M/F) 16-34 M-Mode Dimensions RVDd 3.51 cm (0.9-2.6) LA Diam 3.72 cm (1.9-4.0) LVDd 4.08 cm (3.5-5.7) LVDs 2.97 cm (3.5-5.7) IVSd 1.43 cm (0.6-1.1) PWd 1.15 cm (0.6-1.1) EF (Teich) 53.40% FS 27.20% EDV (Teich) 73.40 mL ESV (Teich) 34.20 mL LV Diastology E Decel Time 90 (160-240 msec) E/A Ratio 0.41 MED A' 11.30 cm/s LAT A' 13.50 cm/s Aortic Valve AI PHT 359.00 ms AO Peak GR. 3.40 mmHg Mitral Valve MV A Velocity 72.0 (40-130 cm/s) E/A Ratio 0.41 Pulmonary Valve PV Peak Velocity 134.0 (50-150 cm/s) Tricuspid Valve TR P. Velocity 150.00 cm/s RAP Estimate 10.00 mmHg RVSP 19.00 mmHg Left Ventricle The left ventricle is normal size. Left ventricular systolic function is normal. The left ventricular ejection fraction is within the normal range. There is increased left ventricular wall thickness. There is normal LV segmental wall motion. Transmitral Doppler flow pattern suggests impaired LV relaxation. LVEF is 55%. Right Ventricle The right ventricle is normal size. The right ventricular systolic function is normal. Atria The left atrium size is normal. The right atrium size is normal. There is no color Doppler evidence of interatrial shunt. Aortic Valve The aortic valve is mildly thickened. There is no hemodynamically significant aortic valvular stenosis. Trace aortic regurgitation is present. Mitral Valve The mitral valve is normal in structure. No evidence of mitral valve stenosis. Trace mitral regurgitation is present. Tricuspid Valve The tricuspid valve leaflets are thin and pliable. Trace tricuspid regurgitation. There is insufficient TR jet to estimate RVSP. Pulmonic Valve The pulmonary valve is grossly normal in structure. Trace pulmonic valve regurgitation is present. Great Vessels The aortic root is normal in size. IVC is normal in size and collapses >50% with inspiration. Pericardium There is no pericardial effusion. Other Information Study Quality: Fair Conclusion Normal biventricular systolic function. No significant valvular stenosis or regurgitation. Electronically signed by : Latonya Dennis MD 05/24/2025 17:29:52
== END 2025-05-22 23:59 | disposition home or self-care (01) ==
LOC: RT 14:45
PROVIDERS: PCP Family Medicine; Visit Provider Internal Medicine
DX: I20.89 Other forms of angina pectoris (principal); I10 Essential (primary) hypertension; R94.31 Abnormal electrocardiogram [ECG] [EKG]; I45.10 Unspecified right bundle-branch block; Z82.49 Family history of ischemic heart disease and other diseases of the circulatory system; E78.5 Hyperlipidemia, unspecified
CPT/HCPCS: 93306

== ENCOUNTER 2025-05-24 07:21 | Outpatient (CLI) | payer MEDICARE, SELFPAY ==
--- OUTSIDE RECORDS SUMMARY | 2024-10-25 10:30 | XMS_ITS ---
Author Organization [facility] Address [address] [place] [id number] Care Team Providers Care Promotional Marketing Analyst Name Role Phone Maicol Quinn Primary Care Provider Allergies No Known Allergies Results Component Value Reference Range Notes CBC Fingerstick (in house) Reviewed date:10/26/2024 08:56:55 AM Interpretation: Performing Lab: Notes/Report: wbc 7.3 3.5 - 10 lym 25.2 15 - 50 mid 6.8 2 - 15 gran 68.0 35 - 80 rbc 4.62 3.5 - 5.5 hgb 14.0 11.5 - 16.5 hct 42.3 35 - 55 mcv 91.6 75 - 100 mch 30.2 25 - 35 mchc 33.0 31 - 38 plat 135 100 - 400 REASON FOR VISIT diarrhea Medications Medication SIG (Take, Route, Frequency, Duration) Notes Start Date End Date Status Atorvastatin Calcium 40 MG 1 tab(s) oral ly once a day Active Lisinopril 20 MG Take 1 tablet by once daily; Duration: 90 days Active Vitamin D 50 MCG (1999) 2 tab(s) oral ly once a day Active Glimepiride 1 MG 1 tablet with breakf ast or the first main meal of the day Orally Once a day 06/09/2024 Active Align - as directed Orally A ctive Finasteride 5 MG 1 tab(s) orally once a day; Duration: 30 day(s) Active Aspir-Low 81 MG 1 tab(s) orally oce a day Active Atorvastatin Calcium 40 MG 1 tab(s) oral ly once a day; Duration: 90 days Active Omeprazole 40 MG 1 cap(s) orally Two times a day; Duration: 90 days Active Farxiga 10 MG 1 tablet Orally Once a day; Duration: 30 day(s) 10/25/2024 Active Vital Signs Blood pressure systolic 126 mm Hg 10/26/19 25 Blood pressure diastolic 70 mm Hg 025 Height 65 in 10/25/2024 Weight 202.6 lbs 10/25/2024 BMI 33.71 kg/m2 10/25/2024 Encounters Encounter Location Date Provider Diagnosis [facility] [facility] [address] [facility] [address] [place] [id number] 10/25/2024 Maicol Quinn Type 2 diabetes mellitus without complications E11.9 and Irritable bowel syndrome K58.9 Assessments Encounter Date Diagnosis (ICD Code) Assessment Notes Treatment Notes Treatment Clinical Notes Section Notes 10/25/2024 Type 2 diabetes mellitus without complications (ICD-10 - E11.9) 10/25/2024 Irritable bowel syndrome (ICD-10 - K58.9) Plan Of Treatment Medication Medication Name Sig Start Date Stop Date Notes metFORMIN HCl ER 500 MG 2 tablets Orally twice a day Farxiga 10 MG 1 tablet Orally Once a day; Duration: 30 day(s) 10/25/2024 Next Appt Details Follow Up: As scheduled next month, Reason: Provider Name:Maicol Sandoval, 06/08/2025 09:30:00 AM, [address] [facility] [address] [facility], [address], [place], [phone], Progress Notes * MEMO VALERANIDIAOB:1950 (74 yo M)Acc No.[id number]:10/25/2024 Progress Notes Patient: HUSEYIN HOUSTON Provider: Maicol Quinn M.D. :1950 A ge:74 Y S ex:Male Date:10/25/2024 Address:[id number] Subjective: * Chief Complaints: * 1 . Diarrhea. * HPI: G astroenterology: Huseyin comes in with complaints of longstanding diarrhea which he describes as bowel urgency and loose stool. He wonders if it is related to his metformin. He does not seem to be related to any particular food. He has no associated abdominal pain, melena, or hematochezia. No weight loss. His last colonoscopy was in 2021. Imodium seems to help. It interferes with social activity as he never knows when he quickly need to find a bathroom. * ROS: A LLERGY: no C ough. n o R unny nose. G ASTROENTEROLOGY: no V omiting. n o D iarrhea. U ROLOGY: no D ifficulty urinating. n o B lood in urine. 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 * Surgical History: t onsillectomy 1973, C-scope - hemorrhoids 2004, Green light laser prostatectomy/ Dr. Madrigal 05/05/2019, EGD - pyloric channel ulcer and duodenal mass/ Dr. Sharma 05/2022, C-scope - internal hemorrhoids, rare diverticulosis 05/2022 , Polypectomy 11/28/2022. * Hospitalization/Major Diagno [facility]ic [facility] [place] [facility] * Family History: F ather: 53 yrs, [place]. M other: alive 95 yrs, [place], [place]. P aternal Grand Father: . P aternal Grand Mother: . M aternal Grand Father: . M aternal Grand Mother: . 2 brother(s) , 2 sister(s) . 1 son(s) , 1 daughter(s) - healthy. . 2 brothers with heart disease and on brother also with throat cancer. * Social History: C URRENT TOBACCO USE S moking Status: Patient does NOT smoke. C affeine: no. Exercise: no. Home smoke detector use: yes. Marital Status: . New since last visit: none. Occupation: yes. Past smoking status: no, Smoking status: Does not smoke. Occup. exposure: none. Recreational drug use: no. Alcohol: no. Sexually active: yes. Travel ouside [place]: no. * Medications: T aking Align - Tablet Chewable as directed Orally , Taking Aspir-Low 81 MG Tablet Delayed Release 1 tab(s) orally oce a day , Taking Finasteride 5 MG Tablet 1 tab(s) orally once a day , Taking Omeprazole 40 MG Capsule Delayed Release 1 cap(s) orally Two times a day , Taking Atorvastatin Calcium 40 MG Tablet 1 tab(s) orally once a day , Taking Lisinopril 20 MG Tablet Take 1 tablet by mouth once daily , Taking Atorvastatin Calcium 40 MG Tablet 1 tab(s) orally once a day , Taking Vitamin D 50 MCG (2000 UT) Tablet 2 tab(s) orally once a day , Taking metFORMIN HCl ER 500 MG Tablet Extended Release 24 Hour 2 tablets Orally twice a day , Taking Glimepiride 1 MG Tablet 1 tablet with breakfast or the first main meal of the day Orally Once a day , Medication List reviewed and reconciled with the patient * Allergies: N .K.D.A. Objective: * Vitals: W t:202.6, Temp:97.8, BP:126/70, Nurse:katerina, Ht: 65, BMI:33.71. * Examination: G eneral Examination: General Appearance: N AD. H eart: R SR. L ungs:?clear to auscultation. A bdomen: obese, soft, not distended, nontender. ? Assessment: * Assessment: 1. T ype 2 diabetes mellitus without complications - E11.9 (Primary) 2 . I rritable bowel syndrome - K58.9 Plan: * Treatment: * Labs: * L ab: CBC Fingerstick (in house) (Collection Date & Time - 10/25/2024) Value Reference Range w bc 7.3 3.5 - 10 * l ym 25.2 15 - 50 * m id 6.8 2 - 15 * g ran 68.0 35 - 80 * r bc 4.62 3.5 - 5.5 * h gb 14.0 11.5 - 16.5 * h ct 42.3 35 - 55 * m cv 91.6 75 - 100 * m ch 30.2 25 - 35 * m chc 33.0 31 - 38 * p lat 135 100 - 400 * Candice Rueda 10/25/2024 2:24:5 5 PM > Provider reviewed results while patient in office. * Procedure Codes: G 2211 Complex e/[place] [address] CAPILLARY BLOOD DRAW, 81358 CBC WITH AUTO DIFF, G8752 MOST RECENT SYSTOLIC BP < 140MM HG, G8754 MOST RECENT DIASTOLIC BP < 90MM HG * Follow Up: A s scheduled next month * Images: Billing Information: * Visit Code: 83445 Office Visit, Est Pt., Level 4. * Procedure Codes: G2211 Complex e/[place]. [address] CAPILLARY BLOOD DRAW. 28669 CBC WITH AUTO DIFF. G8752 MOST RECENT SYSTOLIC BP < 140MM HG. G8754 MOST RECENT DIASTOLIC BP < 90MM HG. * Electronic signature of Maicol Quinn MD on 05/24/2025 at 07:23 AM EDT Sign off status: Pending * Provider: Maicol Quinn M.D. Date: 0 10/25/2024 Generated for Zack flores/Jac/Seferinoitting on: 07:23 AM EDT History and Physical Notes * Examination Category Sub-Category Detail Notes Category Not es General Examination Heart: RSR Lungs: clear to auscultatio n Abdomen: obese, soft, not dis tended, nontender General Appearance: NAD
--- OUTSIDE RECORDS SUMMARY | 2024-12-02 05:10 | XMS_ITS ---
Author Organization [facility] Address [address] [place] [phone] Care Team Providers Care Backrest Assembler Name Role Phone Maicol Quinn Primary Care Provider [phone] Results Component Value Reference Range Notes P-Vitamin B12 Reviewed date:12/08/2024 01:52:44 PM Interpretation: Performing Lab: Notes/Report: Test performed by [facility] [address] [place] [address] , [address], [place] [address] Brayden Delcid MD, Assistant Director Of Admissions CLIA: [id number] Vitamin B12 979 034-3704 pg/mL P-Comprehensive Metabolic Pa geronimo (CMP) Reviewed date:12/08/2024 01:52:44 PM Interpretation: Performing Lab: Notes/Report: Test performed by [facility] [address] [place] [address] , [address], [place] [address] Brayden Delcid MD, Assistant Director Of Admissions CLIA: [id number] Sodium 141 135-145 mmol/L Potassium 4.5 3.5-5.3 mmol/L Chloride 104 97-108 mmol/L CO2 22 22-32 mmol/L Glucose 233 65-99 mg/dL BUN 23 8-23 mg/dL Creatinine 1.79 0.70-1.30 mg/dL Calcium 10.3 8.6-10.4 mg/dL eGFR by Creatinine 39 >59 mL/min/1.73m2 Protein 7.1 6.0-8.3 g/dL Albumin 4.5 3.5-5.3 g/dL Alkaline Phosphatase 139 40-129 IU/L ALT (SGPT) 21 <5-55 IU/L AST (SGOT) 18 <5-46 IU/L Bilirubin, Total 0.6 <0.2-1.2 mg/dL A/G Ratio 1.7 1.1-2.5 P-Hemoglobin A1C Reviewed date:12/08/2024 01:52:44 PM Interpretation: Performing Lab: Notes/Report: Test performed by [facility] [address] [place], [place] [address] [address] Brayden Delcid MD, Assistant Director Of Admissions CLIA: [id number] Hemoglobin A1C 10.2 <5.7 % The following HbA1c ranges recommended by the [place] [employer] (ADA) may be used as an aid in the diagnosis of diabetes mellitus. HbA1c Suggested Diagnosis >=6.5% Diabetic 5.7% - 6.4% Pre-Diabetic <5.7% Non-Diabetic P-Lipid Panel Reviewed date:12/08/2024 01:52:44 PM Interpretation: Performing Lab: Notes/Report: Test performed by [facility] [address] [place] [address] [address], [place] [address] Brayden Delcid MD, Assistant Director Of Admissions CLIA: [id number] Cholesterol 139 <200 mg/dL Triglycerides 146 <150 mg/dL HDL Cholesterol 45 >39 mg/dL Cholesterol / HDL Ratio 3.09 0.00-4.99 Ratio Non-HDL Cholesterol 94 <130 mg/dL LDL Cholesterol (Calculation) 65 <130 mg/dL LDL Cholesterol Levels* Less than 100 mg/dL Optimal 100 to 129 mg/dL Near Optimal/ Above Optimal 130 to 159 mg/dL Borderline High 160 to 189 mg/dL High 190 mg/dL and above Very High * Categories as recommended by the 2004 ATPIII guidelines LDL/HDL Ratio 1.4 <3.3 Ratio LDL Cholesterol Patient History Test Date: 12/07/2023 LDL Results: 40 Units: mg/dL % Change: -4% Test Date: 06/06/2024 LDL Results: 73 Units: mg/dL % Change: +82% Test Date: 12/02/2024 LDL Results: 65 Units: mg/dL % Change: -10% P-PSA Reviewed date:12/08/2024 01:52:44 PM Interpretation: Performing Lab: Notes/Report: Test performed by [facility] [address] [place] [address] , [address], [place] [address] Brayden Delcid MD, Assistant Director Of Admissions CLIA: [id number] PSA 1.82 <4.00 ng/mL Please note this is an ultrasensitive PSA assay with a lower limit of detection of 0.014 ng/mL. This test is performed by the [employer] Miguel ECLIA methodology. Values obtained with different assay methods or kits cannot be directly compared. P-Microalbumin/Creatinine, R andom Urine Sample Reviewed date:12/08/2024 01:52:44 PM Interpretation: Performing Lab: Notes/Report: Test performed by [facility] [address] [place] [address] , [address], [place] [address] Brayden Delcid MD, Assistant Director Of Admissions CLIA: [id number] Albumin/Creatinine Ratio, Urine 22 0-30 ug/mg Microalbumin, Urine, Random 2.6 Creatinine, Urine 118.6 P-Vitamin D 25-Hydroxy Reviewed date:12/08/2024 01:52:44 PM Interpretation: Performing Lab: Notes/Report: Test performed by [facility] [address] [place] [address] [address], [place] [address] Brayden Delcid MD, Assistant Director Of Admissions CLIA: [id number] Vitamin D 25-Hydroxy 70.1 30.0-100.0 ng/mL Interpretation of Vitamin D 25 OH: < 20 ng/mL - Deficiency 20 - 29 ng/mL - Insufficiency 30 - 100 ng/mL - Sufficiency > 100 ng/mL - Super-therapeutic- toxicity may occur above this level. Clinical correlation required. Estimated Average Glucose Reviewed date:12/08/2024 01:52:44 PM Interpretation: Performing Lab: Notes/Report: Test performed by [facility] [address] [place] [address] [address], [place] [address] Brayden Delcid MD, Assistant Director Of Admissions CLIA: [id number] Estimated Average Glucose (eAG) 246 Estimated Average Glucose (eAG) is calculated using the equation eAG = (28.7 x HbA1c) - 46.7 based on the guidelines established by the ADA. If the patient has certain diseases including kidney disease, sickle cell anemia, thalassemia, or is taking medications such as dapsone, erythropoietin, or iron, eAG should not be evaluated. REASON FOR VISIT blood work Medications Medication SIG (Take, Route, Frequency, Duration) Notes Start Date End Date Status Atorvastatin Calcium 40 MG Take 1 tablet by mouth once daily; Duration: 90 Active Farxiga 10 MG 1 tablet Orally Once a day; Duration: 30 days Active Glimepiride 1 MG 1 tablet with breakf ast or the first main meal of the day Orally Once a day 06/09/2024 Active Gemtesa 75 MG 1 tablet Orally Once a day; Duration: 30 day(s) 11/15/2024 Active Lisinopril 20 MG Take 1 tablet by once daily; Duration: 90 Active Align - as directed Orally A ctive Omeprazole 40 MG 1 cap(s) orally Two times a day; Duration: 90 days Active Vitamin D 50 MCG (1999 UT) 2 tab(s) oral ly once a day Active Aspir-Low 81 MG 1 tab(s) orally oce a day Active Finasteride 5 MG 1 tab(s) orally once a day; Duration: 30 day(s) Active Encounters Encounter Location Date Provider Diagnosis [facility] [address] [place] [address] [address] [facility] [address] [place] [phone] 12/02/2024 Maicol Quinn Essential (primary) hypertension I10 ; Hyperlipidemia, unspecified E78.5 ; Type 2 diabetes mellitus without complication E11.9 ; Vitamin B12 deficiency E53.8 ; Vitamin D deficiency E55.9 and Inflammatory disease of prostate, unspecified N41.9 Assessments Encounter Date Diagnosis (ICD Code) Assessment Notes Treatment Notes Treatment Clinical Notes Section Notes 12/02/2024 Essential (primary) hypertension (ICD-10 - I10) 12/02/2024 Hyperlipidemia, unspecified (ICD-10 - E78.5) 12/02/2024 Type 2 diabetes mellitus without complication (ICD-10 - E11.9) 12/02/2024 Vitamin B12 deficiency (ICD-10 - E53.8) 12/02/2024 Vitamin D deficiency (ICD-10 - E55.9) 12/02/2024 Inflammatory disease of prostate, unspecified (ICD-10 - N41.9) Plan Of Treatment Next Appt Details Provider Name:Maicol Sandoval, 06/08/2025 09:30:00 AM, [address] [facility] 36 [facility], [address], [place], [phone], Progress Notes * RAUL VALERAOB:1950 (74 yo M)Acc No.[id number]:12/02/2024 Patient: SHRUTI HOUSTON Provider: Maicol Quinn M.D. :1950 A ge:74 Y S ex:Male Date:12/02/2024 Address:[address] [place] [address] [id number] Subjective: * Chief Complaints: * 1 . Blood work. * Medical History: * Medications: T aking Align - Tablet Chewable as directed Orally , Taking Aspir-Low 81 MG Tablet Delayed Release 1 tab(s) orally oce a day , Taking Finasteride 5 MG Tablet 1 tab(s) orally once a day , Taking Omeprazole 40 MG Capsule Delayed Release 1 cap(s) orally Two times a day , Taking Vitamin D 50 MCG (2000 UT) Tablet 2 tab(s) orally once a day , Taking Glimepiride 1 MG Tablet 1 tablet with breakfast or the first main meal of the day Orally Once a day , Taking Gemtesa 75 MG Tablet 1 tablet Orally Once a day , Taking Atorvastatin Calcium 40 MG Tablet Take 1 tablet by mouth once daily , Taking Farxiga 10 MG Tablet 1 tablet Orally Once a day , Taking Lisinopril 20 MG Tablet Take 1 tablet by mouth once daily , Medication List reviewed and reconciled with the patient Objective: * Vitals: Assessment: * Assessment: 1. E ssential (primary) hypertension - I10 (Primary) 2 . H yperlipidemia, unspecified - E78.5 3 . T ype 2 diabetes mellitus without complication - E11.9? 4. V itamin B12 deficiency - E53.8 5 . V itamin D deficiency - E55.9 6 . I nflammatory disease of prostate, unspecified - N41.9 ? Plan: * Treatment: Value Reference Range A /G Ratio 1.7 1.1-2.5 - * A lbumin 4.5 3.5-5.3 - g/dL * A lkaline Phosphatase 139 H 40-129 - IU/L * A LT (SGPT) 21 <5-55 - IU/L * A ST (SGOT) 18 <5-46 - IU/L * B ilirubin, Total 0.6 <0.2-1.2 - mg/dL * B UN 23 8-23 - mg/dL * C alcium 10.3 8.6-10.4 - mg/dL * C hloride 104 97-108 - mmol/L * C O2 22 22-32 - mmol/L * C reatinine 1.79 H 0.70-1.30 - mg/dL * G lucose 233 H 65-99 - mg/dL * P otassium 4.5 3.5-5.3 - mmol/L * S odium 141 135-145 - mmol/L * P rotein 7.1 6.0-8.3 - g/dL * e GFR by Creatinine 39 L >59 - mL/min/1.73m2 * Maicol Quinn 12/08/2024 1 :52:33 PM >discussed with patient during office visit 2.?Hyperlipidemia, unspecified?LAB: P-Lipid Panel (Collection Date & Time - 12/02/2024 08:29 AM)* Value Reference Range C holesterol / HDL Ratio 3.09 0.00-4.99 - Ratio * C holesterol 139 <200 - mg/dL * H DL Cholesterol 45 >39 - mg/dL * L DL Cholesterol (Calculation) 65 <130 - mg/d L * L DL/HDL Ratio 1.4 <3.3 - Ratio * N on-HDL Cholesterol 94 <130 - mg/dL * T riglycerides 146 <150 - mg/dL * Maicol Quinn 12/08/2024 1 :52:33 PM >discussed with patient during office visit 3.?Type 2 diabetes mellitus without complication?LAB: P-Hemoglobin A1C (Collection Date & Time - 12/02/2024 08:29 AM)* Value Reference Range H emoglobin A1C 10.2 H <5.7 - % * Maicol Quinn 12/08/2024 1 :52:33 PM >discussed with patient during office visit ?LAB: P-Microalbumin/Creatinine, Random Urine Sample (Collection Date & Time - 12/02/2024 08:29 AM)* Value Reference Range A lbumin/Creatinine Ratio, Urine 22 0-30 - ug /mg * C reatinine, Urine 118.6 - mg/dL * M icroalbumin, Urine, Random 2.6 - mg/dL * Maicol Quinn 12/08/2024 1 :52:33 PM >discussed with patient during office visit 4.?Vitamin B12 deficiency?LAB: P-Vitamin B12 (Collection Date & Time - 12/02/2024 08:29 AM)* Value Reference Range V itamin B12 860 813-5587 - pg/mL * Maicol Quinn 12/08/2024 1 :52:33 PM >discussed with patient during office visit 5.?Vitamin D deficiency?LAB: P-Vitamin D 25-Hydroxy (Collection Date & Time - 12/02/2024 08:29 AM) * Value Reference Range V itamin D 25-Hydroxy 70.1 30.0-100.0 - ng/mL * Maicol Quinn 12/08/2024 1 :52:33 PM >discussed with patient during office visit 6.?Inflammatory disease of prostate, unspecified?LAB: P-PSA (Collection Date & Time - 12/02/2024 08:29 AM)* Value Reference Range P SA 1.82 <4.00 - ng/mL * Maicol Quinn 12/08/2024 1 :52:33 PM >discussed with patient during office visit * Labs: * L ab: Estimated Average Glucose (Collection Date & Time - 12/02/2024 08:29 AM) Value Reference Range E stimated Average Glucose 246 - mg/dL * [facility], support 12/03/2024 04:40:13 : This order was created by the Interface. Maicol Quinn 12/08/2024 1:52:33 PM >discussed with patient during office visit * Procedure Codes: 3 046F HEMOGLOBIN A1C LEVEL > 9.0% * Images: Billing Information: * Visit Code: * Procedure Codes: 3046F HEMOGLOBIN A1C LEVEL > 9.0%. * Electronic signature of Maicol Quinn MD on 05/24/2025 at 07:24 AM EDT Sign off status: Pending * Provider: Maicol Quinn M.D. Date: 0 12/02/2024 Generated for Zack flores/Jac/eTransmitting on: 1 07:24 AM EDT
--- OUTSIDE RECORDS SUMMARY | 2024-12-08 05:15 | XMS_ITS ---
Author Organization [facility] Address [address] [place] [phone] Care Team Providers Care [employer] Name Role Phone Maicol Quinn Primary Care Provider Allergies Allergen (clinical drug ingredient) Drug/Non Drug Allergy documented on EMR Reaction Allergy Type Onset Date Status metformin metFORMIN diarrhea Drug Allergy Active REASON FOR VISIT 6 month check and AWV Medications Medication SIG (Take, Route, Frequency, Duration) Notes Start Date End Date Status Lisinopril 20 MG 1 tab(s) orally once a day Active Vitamin D 50 MCG (1999) 2 tab(s) oral ly once a day Active Aspir-Low 81 MG 1 tab(s) orally oce a day Active Omeprazole 40 MG 1 cap(s) orally Two times a day; Duration: 90 days Active Align - as directed Orally A ctive Lisinopril 20 MG Take 1 tablet by once daily; Duration: 90 Active Glimepiride 1 MG 1 tablet with breakf ast or the first main meal of the day Orally Once a day Active Atorvastatin Calcium 40 MG 1 tab(s) oral ly once a day Active Farxiga 10 MG 1 tablet Orally Once a day Active Gemtesa 75 MG 1 tablet Orally Once a day 11/15/2024 Active Atorvastatin Calcium 40 MG Take 1 tablet by mouth once daily; Duration: 90 Active Finasteride 5 MG 1 tab(s) orally once a day Active Problems Problem Type SNOMED Code ICD Code Onset Dates Problem Status W/U Status Risk Notes Problem Chronic kidney disease stage 3A (disorder) (355178430) CKD stage 3a, GFR 45-59 ml/min (N18.31) Active confirmed Problem Benign prostatic hyperplasia (440454858) BPH (benign prostatic hyperplasia) (N40.0) Active confirmed Problem Overactive bladder (000915087) Overactive bladder (N32.81) Active confirmed Problem Obese class I (909833082450432 ) BMI 33.0-33.9,adult (Z68.33) Active confirmed Vital Signs Blood pressure systolic 126 mm Hg 12/09/19 25 Blood pressure diastolic 78 mm Hg 025 Height 65 in 12/08/2024 Weight 200.4 lbs 12/08/2024 BMI 33.34 kg/m2 12/08/2024 Encounters Encounter Location Date Provider Diagnosis [facility] [address] [facility] [address] [place], [place] [phone] 12/08/2024 Maicol Quinn Adult general medica l examination Z00.00 ; Hyperlipidemia associated with type 2 diabetes mellitus E11.69 ; Essential (primary) hypertension I10 ; Hyperlipidemia, unspecified E78.5 ; Type 2 diabetes mellitus without complications E11.9 ; Vitamin B12 deficiency E53.8 ; Vitamin D deficiency E55.9 ; CKD stage 3a, GFR 45-59 ml/min N18.31 ; BPH (benign prostatic hyperplasia) N40.0 ; Overactive bladder N32.81 and BMI 33.0-33.9,adult Z68.33 Assessments Encounter Date Diagnosis (ICD Code) Assessment Notes Treatment Notes Treatment Clinical Notes Section Notes 12/08/2024 Adult general medical examination (ICD-10 - Z00.00) Patient instructed to return to office Annually for Annual Wellness Visits to include annual screenings of Pain assessment, Functional Ability assessment, Cognitive Ability assessment, Fall Risk assessment, Depression screening and Bladder control screening. 12/08/2024 Hyperlipidemia associated with type 2 diabetes mellitus (ICD-10 - E11.69) 12/08/2024 Essential (primary) hypertension (ICD-10 - I10) 12/08/2024 Hyperlipidemia, unspecified (ICD-10 - E78.5) 12/08/2024 Type 2 diabetes mellitus without complications (ICD-10 - E11.9) A1c has increased to >10 due to noncompliance with diet and taking the glimepiride. He agrees to start on the glimepiride. Reinforced diet and weight loss 12/08/2024 Vitamin B12 deficiency (ICD-10 - E53.8) Start OTC Vit B12 supplement 1000mcg daily 12/08/2024 Vitamin D deficiency (ICD-10 - E55.9) 12/08/2024 CKD stage 3a, GFR 45-59 ml/min (ICD-10 - N18.31) 12/08/2024 BPH (benign prostatic hyperplasia) (ICD-10 - N40.0) 12/08/2024 Overactive bladder (ICD-10 - N32.81) 12/08/2024 BMI 33.0-33.9,adult (ICD-10 - Z68.33) Plan Of Treatment Medication Medication Name Sig Start Date Stop Date Notes Lisinopril 20 MG 1 tab(s) orally once a day Vitamin D 50 MCG (1999 UT) 2 tab(s) orally once a day Glimepiride 1 MG 1 tablet with breakf ast or the first main meal of the day Orally Once a day Atorvastatin Calcium 40 MG 1 tab(s) orally once a day Farxiga 10 MG 1 tablet Orally Once a day Gemtesa 75 MG 1 tablet Orally Once a day 11/15/2024 Finasteride 5 MG 1 tab(s) orally once a day Treatment Notes Assessment Notes Adult general medical examination Patien t instructed to return to office Annually for Annual Wellness Visits to include annual screenings of Pain assessment, Functional Ability assessment, Cognitive Ability assessment, Fall Risk assessment, Depression screening and Bladder control screening. Type 2 diabetes mellitus wit hout complications A1c has increased to >10 due to noncompliance with diet and taking the glimepiride. He agrees to start on the glimepiride. Vitamin B12 deficiency Start OTC Vit B12 supplement 1000mcg daily Next Appt Details Follow Up: 6 Months, Reason: Provider Name:Maicol Sandoval, 06/08/2025 09:30:00 AM, [address] [facility], [address] , [place], [place], [id number], Progress Notes * RAUL VALERAOB:1950 (74 yo M)Acc No.[id number]:12/08/2024 Annual Wellness Visit Patient: MEMO HOUSTONY Provider: Maicol Quinn M.D. :1950 A ge:74 Y S ex:Male Date:12/08/2024 Address:[place], [id number] Subjective: * Chief Complaints: * 1 . 6 month check and AWV. * HPI: H PI: Patient is here today for a scheduled 6 month check up?and a Medicare Annual Wellness Visit. See lab results drawn by [facility] 12/02/2024 in patient chart. . E ndocrinology: Blood sugars continue to run high at home. His lowest fasting reading has been 155 but he has had several numbers over 300. He is not compliant with his low-carb diet. 6 months ago, glimepiride was added to his regimen but he never started taking the medication because of concerns of hypoglycemia. Last month, he was switched from metformin to Farxiga because of side effects of diarrhea. He notes his diarrhea has improved but he has had increased urinary frequency and some incontinence with the Farxiga. He has been started on Gemtesa. * ROS: O PTHALMOLOGY: Negative for d enies vision issues. 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 * Surgical History: t onsillectomy 1973, C-scope - hemorrhoids 2004, Green light laser prostatectomy/ Dr. Madrigal 05/05/2019, EGD - pyloric channel ulcer and duodenal mass/ Dr. Sharma 05/2022, C-scope - internal hemorrhoids, rare diverticulosis 05/2022, Polypectomy 11/28/2022. * Hospital[facility] Diagno stic [facility] * Family History: F [...] and reconciled with the patient * Allergies: m etFORMIN: diarrhea - Side Effects. Objective: * Vitals: W t: 200.4, Temp: 97.5, BP: 126/78, Nurse: katerina, Ht: 65, BMI:33.34. * Examination: G eneral Examination: General Appearance: N AD. Color is good. Slight weight loss noted. H EENT: s clera and conjunctiva clear, PERRLA, TM's normal, translucent. N kenneth: s upple, no lymphadenopathy, no bruits. H eart: R SR, no murmurs. L ungs: clear to auscultation. A bdomen: o bese, bowel sounds present, soft and nontender. E xtremities: n o leg edema. * Physical Examination: G ENERAL: Pain Assessment: P ain level: 3, on a scale of 0-10 (with 10 being extreme pain). F unctional Status Assessment: P atient response to question of how often physical health interferes with daily activities: . Occasionally Able to perform ADLs-including meal preparation, grocery shopping, housework, laundry, taking medications or handling finances. Cognitive Status: alert and oriented. Ambulation Status: Fully ambulatory . F all Risk Assessment: I ndependant in ambulation, adequate lighting in home. Patient has NOT fallen or had trouble walking within the past 12 months. D epression Screening: D enies depressed mood or anxiety. Describes emotional health as: positive. B ladder Control Screening: s mall problems. Assessment: * Assessment: 1. A dult general medical examination - Z00.00 (Primary) 2 . H yperlipidemia associated with type 2 diabetes mellitus - E11.69 3 . E ssential (primary) hypertension - I10 4 . H yperlipidemia, unspecified - E78.5 5 . Type 2 diabetes mellitus without complications - E11.9 6 . V itamin B12 deficiency - E53.8 7 . V itamin D deficiency - E55.9 8 . C KD stage 3a, GFR 45-59 ml/min - N18.31 9 . B PH (benign prostatic hyperplasia) - N40.0 10. O veractive bladder - N32.81 1 1. B KS 33.0-33.9,adult - Z68.33 Plan: * Treatment: 2. E ssential (primary) hypertension Continue Lisinopril Tablet, 20 MG, 1 tab(s), orally, once a day. 3. H yperlipidemia, unspecified Continue Atorvastatin Calcium Tablet, 40 MG, 1 tab(s), orally, once a day. 4. T ype 2 diabetes mellitus without complications Start Glimepiride Tablet, 1 MG, 1 tablet with breakfast or the first main meal of the day, Orally, Once a day; R efill Farxiga Tablet, 10 MG, 1 tablet, Orally, Once a day, 90, Refills 1. ? Notes: A1c has increased to >10 due to noncompliance with diet and taking the glimepiride. He agrees to start on the glimepiride. Clinical Notes: Reinforced diet and weight loss 5. V itamin B12 deficiency Notes: Start OTC Vit B12 supplement 1000mcg daily 6. V itamin D deficiency Continue Vitamin D Tablet, 50 MCG (1999), 2 tab(s), orally, once a day. 7. B PH (benign prostatic hyperplasia) Continue Finasteride Tablet, 5 MG, 1 tab(s), orally, once a day. 8. O veractive bladder Refill Gemtesa Tablet, 75 MG, 1 tablet, Orally, Once a day, 90, Refills 1. * Procedure Codes: G 0439 ANNUAL WELLNESS VST; PPS SUBSQT VST, G2211 Complex e/m visit add on, G0444 ANNUAL DEPRESSION SCREENING 15 MIN, 1090F PRES/ABSN URINE INCON ASSESS, 3288F FALL RISK ASSESSMENT DOCD, 1170F FXNL STATUS ASSESSED, 1159F MED LIST DOCD IN RCRD, 1003F LEVEL OF ACTIVITY ASSESS, 1036F TOBACCO NON-USER, 3017F COLORECTAL CA SCREEN DOC REV, 4040F PNEUMOC IMM ORDER/ADMIN, 3046F HEMOGLOBIN A1C LEVEL > 9.0%, G8510 NEG SCR Depression PT NOT ELIG F/U/PLN DOC, G8752 MOST RECENT SYSTOLIC BP < 140MM HG, G8754 MOST RECENT DIASTOLIC BP < 90MM HG * Preventive Medicine: Counseling: E motional health: D iscussed ways to improve socialization. B ladder control: M ethods of controlling or managing leakage of urine discussed. E xercise: Patient advised to start, increase or maintain level of exercise/physical activity. I njury prevention: F all prevention discussed. Discussed need for cane/walker. Potential trip hazards discussed. Immunizations: P neumococcal u p to date. I nfluenza u p to date. Screening / Special Tests: C olonoscopy R ecent history: 06/13/2022, diverticulosis, hemorrhoids, varicosities. P SA , normal. D iabetic Retinal Eye Exam Recent history: 08/02/2024. N ephrology History R ecent history: gfr and urine m/a performed 12/02/2024. * Follow Up: 6 Months * Images: Billing Information: * Visit Code: 64299 Office Visit, Est Pt., Level 3. Modifiers: 25 * Procedure Codes: G0439 ANNUAL WELLNESS VST; PPS SUBSQT VST. G2 Complex e/m visit add on. G0444 ANNUAL DEPRESSION SCREENING 15 MIN. 1090F PRES/ABSN URINE INCON ASSESS. 3288F FALL RISK ASSESSMENT DOCD. 1170F FXNL STATUS ASSESSED. 1159F MED LIST DOCD IN RCRD. 1003F LEVEL OF ACTIVITY ASSESS. 1036F TOBACCO NON-USER. 3017F COLORECTAL CA SCREEN DOC REV. 4040F PNEUMOC IMM ORDER/ADMIN. 3046F HEMOGLOBIN A1C LEVEL > 9.0%. G8510 NEG SCR Depression PT NOT ELIG F/U/PLN DOC. G8752 MOST RECENT SYSTOLIC BP < 140MM HG. G8754 MOST RECENT DIASTOLIC BP < 90MM HG. * Electronic signature of Maicol Quinn MD on 05/24/2025 at 07:24 AM EDT Sign off status: Pending * Provider: Maicol Quinn M.D. Date: 0 12/08/2024 Generated for Zack flores/Jac/eTransmitting on: 1 07:24 AM EDT History and Physical Notes * HPI (History of Present Illness) Category Sub-Category Detail Notes Category Not es HPI Patient is here today for a [facility] 6 month check up and a Medicare Annual Wellness Visit. See lab results drawn by ALICIA 12/02/2024 in patient chart. Physical Examination Category Sub-Category Detail Notes Section Note s GENERAL Pain Assessment: Pain level: 3, on a scale of 0-10 (with 10 being extreme pain) Functional Status Assessment: Patient response to question of how often physical health interferes with daily activities: . Occasionally Able to perform ADLs-including meal preparation, grocery shopping, housework, laundry, taking medications or handling finances. Cognitive Status: alert and oriented. Ambulation Status: Fully ambulatory Fall Risk Assessment: Independant in amb ulation, adequate lighting in home. Patient has NOT fallen or had trouble walking within the past 12 months Depression Screening: Denies depressed m ood or anxiety. Describes emotional health as: positive Bladder Control Screening: small problem s Examination Category Sub-Category Detail Notes Category Not es General Examination HEENT: sclera and c onjunctiva clear, PERRLA, TM's normal, translucent Heart: RSR, no murmurs Lungs: clear to auscultatio n Abdomen: obese, bowel sounds present, soft and nontender Extremities: no leg edema General Appearance: NAD. Color is good. Slight weight loss noted Skin: Neurologic Exam: Neck: supple, no lymphaden opathy, no bruits
--- OUTSIDE RECORDS SUMMARY | 2025-04-18 07:00 | XMS_ITS ---
Author Organization [facility] Address [address] [place] [id number] Care Team Providers Care Senior Systems Engineer Name Role Phone Maicol Quinn Primary Care Provider [phone] Allergies Allergen (clinical drug ingredient) Drug/Non Drug Allergy documented on EMR Reaction Allergy Type Onset Date Status metformin metFORMIN diarrhea Drug Allergy Active Results Component Value Reference Range Notes P-Basic Metabolic Panel (BMP ) Reviewed date:04/25/2025 08:42:38 AM Interpretation: Performing Lab: Notes/Report: Test performed by [employer], [employer] [address] [place] [address] , [address], [place] [address] Brayden Delcid MD, Communications Supervisor CLIA: [id number] Sodium 142 135-145 mmol/L Potassium 5.3 3.5-5.3 mmol/L Chloride 106 97-108 mmol/L CO2 26 20-32 mmol/L Glucose 113 65-99 mg/dL BUN 20 8-23 mg/dL Creatinine 1.65 0.70-1.30 mg/dL Calcium 10.0 8.6-10.4 mg/dL eGFR by Creatinine 43 >59 mL/min/1.73m2 REASON FOR VISIT f/u ER Medications Medication SIG (Take, Route, Frequency, Duration) Notes Start Date End Date Status Omeprazole 40 MG 1 cap(s) orally Two times a day; Duration: 90 days Active Vitamin D 50 MCG (1999) 2 tab(s) oral ly once a day Active Finasteride 5 MG 1 tab(s) orally once a day Active Glimepiride 1 MG 1 tablet with breakf ast or the first main meal of the day Orally Once a day Active Farxiga 10 MG 1 tablet Orally Once a day Active Align - as directed Orally A ctive Aspir-Low 81 MG 1 tab(s) orally oce a day Active Gemtesa 75 MG 1 tablet Orally Once a day 11/15/2024 Active Atorvastatin Calcium 40 MG 1 tablet Oral ly Once a day; Duration: 90 days Active Lisinopril 20 MG 1 tablet Orally Once a day; Duration: 90 days Active Problems Problem Type SNOMED Code ICD Code Onset Dates Problem Status W/U Status Risk Notes Problem Chronic renal insufficiency (153136145) Chronic renal insufficiency (N18.9) Active confirmed Vital Signs Blood pressure systolic 140 mm Hg 04/18/20 Blood pressure diastolic 78 mm Hg 025 Heart Rate 50 /min 04/18/2025 Height 65 in 04/18/2025 Weight 201.6 lbs 04/18/2025 BMI 33.54 kg/m2 04/18/2025 Encounters Encounter Location Date Provider Diagnosis [facility] [facility] [address] [facility] [address] [place] [id number] 04/18/2025 Maicol Quinn Chronic renal insufficiency N18.9 Assessments Encounter Date Diagnosis (ICD Code) Assessment Notes Treatment Notes Treatment Clinical Notes Section Notes 04/18/2025 Chronic renal insufficiency (ICD-10 - N18.9) Plan Of Treatment Next Appt Details Follow Up: as scheduled, Veronica son: Provider Name:Maicol Sandoval, 06/08/2025 09:30:00 AM, [address] [facility] [address] [facility], [address], [place], [phone], Progress Notes * RAUL VALERAOB:1950 (74 yo M)Acc No.[id number]:04/18/2025 Patient: Deven GUTIÉRREZHUSEYIN Provider: Maicol Quinn M.D. :1950 A ge:74 Y S ex:Male Date:04/18/2025 Address:[id number] Subjective: * Chief Complaints: * 1 . f/u ER. * HPI: H PI: Huseyin presented to the ER on 04/11/2025 with episode of uncontrolled shaking, headache, flushing, and weakness. He had a fairly extensive workup (please refer to ER note in chart). The only finding was a creatinine of 1.7 which is near baseline for him. He was encouraged to drink more fluids and follow-up today. He has felt fine since then with no further episodes. * ROS: D ERMATOLOGY: no R azar. n o H gracie. G ASTROENTEROLOGY: no N ausea. n o V omiting. n o D iarrhea.? U ROLOGY: no D ifficulty urinating. n [...] Polypectomy 11/28/2022. * Hospitalization/Major Diagno stic Procedure: [facility] ER-enlarged prostate 03/2019. * Family History: F ather: 53 yrs, [place]. M other: alive 95 yrs, [place], [place]. P aternal Grand Father: . P aternal [...] tab(s) orally oce a day , Taking Omeprazole 40 MG Capsule Delayed Release 1 cap(s) orally Two times a day , Taking Vitamin D 50 MCG (2000 UT) Tablet 2 tab(s) orally once a day , Taking Finasteride 5 MG Tablet 1 tab(s) orally once a day , Taking Glimepiride 1 MG Tablet 1 tablet with breakfast or the first main meal of the day Orally Once a day , Taking Farxiga 10 MG Tablet 1 tablet Orally Once a day , Taking Gemtesa 75 MG Tablet 1 tablet Orally Once a day , Taking Atorvastatin Calcium 40 MG Tablet 1 tablet Orally Once a day , Taking Lisinopril 20 MG Tablet 1 tablet Orally Once a day , Medication List reviewed and reconciled with the patient * Allergies: m etFORMIN: diarrhea - Side Effects. Objective: * Vitals: W t: 201.6, Temp: 97.5, BP: 140/78, HR: 50, Nurse: soniya, Ht: 65, BMI:33.54. * Examination: C ardiology: General Appearance: p leasant, NAD. H eart sounds: R RR, normal S1, S2. M urmur, click , gallop: n one. L ungs: c lear, no rales or wheezes. E xtremities: n o leg edema. Assessment: * Assessment: 1. C hronic renal insufficiency - N18.9 (Primary) Plan: * Treatment: Value Reference Range B UN 20 8-23 - mg/dL * C alcium 10.0 8.6-10.4 - mg/dL * C hloride 106 97-108 - mmol/L * C O2 26 20-32 - mmol/L * C reatinine 1.65 H 0.70-1.30 - mg/dL * G lucose 113 H 65-99 - mg/dL * P otassium 5.3 3.5-5.3 - mmol/L * S odium 142 135-145 - mmol/L * e GFR by Creatinine 43 L >59 - mL/min/1.73m2 * Maicol Quinn 04/25/2025 0 8:42:27 AM EDT > See phone encounter * Procedure Codes: G 2211 Complex e/m visit add on, 1036F TOBACCO NON-USER * Follow Up: a s scheduled * Images: Billing Information: * Visit Code: 91340 Office Visit, Est Pt., Level 3. * Procedure Codes: G2211 Complex e/m visit add on. 1036F TOBACCO NON-USER. * Electronic signature of Maicol Quinn MD on 05/24/2025 at 07:24 AM EDT Sign off status: Pending * Provider: Maicol Quinn M.D. Date: 0 04/18/2025 Generated for Zack flores/Jac/eTransmitting on: 1 07:24 AM EDT History and Physical Notes * Examination Category Sub-Category Detail Notes Category Not es Cardiology Lungs: clear, no rales or wheezes Heart sounds: RRR, normal S1, S2 Extremities: no leg edema Murmur, click , gallop: none General Appearance: pleasant, NAD
--- OUTSIDE RECORDS SUMMARY | 2025-05-24 07:24 | XMS_ITS | Patient Health Record ---
Author Organization [facility] Address [address] [place] [id number] Care Team Providers Care Rattling Machine Tender Name Role Phone Maicol Quinn Primary Care [...] - 38 plat 135 100 - 400 CBC Fingerstick (in house) Reviewed date:06/09/2024 05:05:33 [...] - 38 plat 188 100 - 400 Glycohemoglobin A1c (in hous e) Reviewed date:06/09/2024 05:05:34 PM Interpretation:8.3 Performing Lab: Notes/Report: 8.3 glycohemoglobin 8.3% 5 - 6.5 % P-Vitamin B12 Reviewed date:06/09/2024 05:05:33 PM Interpretation:Normal Performing Lab: Notes/Report: Test performed by [facility] [address] [place] [address] [place] [address] Brayden Delcid MD, Java Support Engineer CLIA: [id number] Vitamin B12 695 494-1956 pg/mL P-Lipid Panel Reviewed date:06/09/2024 05:05:33 PM Interpretation:Normal Performing Lab: Notes/Report: Test performed by [facility] [address] [place] [address] Segun Mcint[address] C, [place] [address] Brayden Delcid MD, Java Support Engineer CLIA: [id number] Cholesterol 141 <200 mg/dL Triglycerides 137 <150 [...] 73 Units: mg/dL % Change: +82% P-Vitamin D 1,25-Dihydroxy a nd 25-Hydroxy Reviewed date:06/09/2024 05:05:33 PM Interpretation:Normal Performing Lab: Notes/Report: Test performed by [facility] [address] [place] [address] Dr[facility], [place] [address] Brayden Delcid MD, Java Support Engineer CLIA: [id number] Vitamin D 25-Hydroxy 53.8 30.0-100.0 ng/mL Interpretation of Vitamin D 25 [place]: < 20 ng/mL - Deficiency 20 - 29 ng/mL - Insufficiency 30 - 100 ng/mL - Sufficiency > 100 ng/mL - Super-therapeutic- toxicity may occur above this level. Clinical correlation required. Vitamin D, 1, 25 Dihydroxy 47.8 19.9-79.3 pg/m L P-Vitamin B12 Reviewed date:12/08/2024 01:52:44 PM Interpretation: Performing Lab: Notes/Report: Test performed by [facility] [address] [place], [place] [address] [place] Segun Mcintosh, [place] [address] Brayden Delcid MD, Java Support Engineer CLIA: [id number] Vitamin B12 207 745-4762 pg/mL P-Comprehensive Metabolic Pa geronimo (CMP) Reviewed date:12/08/2024 01:52:44 PM Interpretation: Performing Lab: Notes/Report: Test performed by [facility] [address] [place] [address] [address]un Mcint[address] C, [place] [address] Brayden Delcid MD, Java Support Engineer CLIA: [id number] Sodium 141 135-145 mmol/L Potassium 4.5 3.5-5.3 [...] Interpretation: Performing Lab: Notes/Report: Test performed by [facility] [address] [place] [address] [address], [place] [address] Brayden Delcid MD, Java Support Engineer CLIA: [id number] Hemoglobin A1C 10.2 <5.7 % The following HbA1c ranges recommended by the [place] Diabetes [employer] (ADA) may be used as an aid in the diagnosis of diabetes mellitus. HbA1c Suggested Diagnosis >=6.5% Diabetic 5.7% - 6.4% Pre-Diabetic <5.7% Non-Diabetic P-Lipid Panel Reviewed date:12/08/2024 01:52:44 PM Interpretation: Performing Lab: Notes/Report: Test performed by [facility] [address] [place] [address] [address] Mcint[address] C, [place] [address] Brayden Delcid MD, Java Support Engineer CLIA: [id number] Cholesterol 139 <200 mg/dL Triglycerides 146 <150 [...] Interpretation: Performing Lab: Notes/Report: Test performed by [facility] [address] [place], [place] [address] [place] , [place] [address] Brayden Delcid MD, Java Support Engineer CLIA: [id number] PSA 1.82 <4.00 ng/mL Please note this is an ultrasensitive PSA assay with a lower limit of detection of 0.014 ng/mL. This test is performed by the José Miguel ECLIA methodology. Values obtained with different assay methods or kits cannot be directly compared. P-Microalbumin/Creatinine, R andom Urine Sample Reviewed date:12/08/2024 01:52:44 PM Interpretation: Performing Lab: Notes/Report: Test performed by [facility] [address] , [place] [address] Brayden Delcid MD, Java Support Engineer CLIA: [id number] Albumin/Creatinine Ratio, Urine 22 0-30 ug/m g Microalbumin, Urine, Random 2.6 Creatinine, Urine 118.6 P-Vitamin D 25-Hydroxy Reviewed date:12/08/2024 01:52:44 PM Interpretation: Performing Lab: Notes/Report: Test performed by [facility] [address] [place] [address] , [place] [address] Brayden Delcid MD, Java Support Engineer CLIA: [id number] Vitamin D 25-Hydroxy 70.1 30.0-100.0 ng/mL Interpretation of Vitamin D 25 [place]: < 20 ng/mL - Deficiency 20 - 29 ng/mL - Insufficiency 30 - 100 ng/mL - Sufficiency > 100 ng/mL - Super-therapeutic- toxicity may occur above this level. Clinical correlation required. Estimated Average Glucose Reviewed date:12/08/2024 01:52:44 PM Interpretation: Performing Lab: Notes/Report: Test performed by [facility] [address] , [place] [address] Brayden Delcid MD, Java Support Engineer CLIA: [id number] Estimated Average Glucose (eAG) 246 Estimated Average Glucose (eAG) is calculated using the equation eAG = (28.7 x HbA1c) - 46.7 based on the guidelines established by the ADA. If the patient has certain diseases including kidney disease, sickle cell anemia, thalassemia, or is taking medications such as dapsone, erythropoietin, or iron, eAG should not be evaluated. P-Basic Metabolic Panel (BMP ) Reviewed date:04/25/2025 08:42:38 AM Interpretation: Performing Lab: Notes/Report: Test performed by [facility] [address] [place] [address] , [address], [place] [address] Brayden Delcid MD, Java Support Engineer CLIA: [id number] Sodium 142 135-145 mmol/L Potassium 5.3 3.5-5.3 mmol/L Chloride 106 97-108 mmol/L CO2 26 20-32 mmol/L Glucose 113 65-99 mg/dL BUN 20 8-23 mg/dL Creatinine 1.65 0.70-1.30 mg/dL Calcium 10.0 8.6-10.4 mg/dL eGFR by Creatinine 43 >59 mL/min/1.73m2 Reason For Referral Diagnosis 1 Right bundle branch block (RBBB) (I45.10) Referral Organization [facility] Referring Provider First Name Maicol Schulte Referring Provider Last Name Kai Referring Provider Speciality [facility] Referred Provider Specialty Cardiovascul ar Disease General Notes Charleen Pena 2024 09:55:06 AM > faxed to [facility] CardiologyBecky Brynn 05/01/2025 11:07:19 AM > 05/09/2025 at 01:15pm [...] Omeprazole 40 MG Take 1 capsule by ut twice daily; Duration: 90 Active Gemtesa 75 [...] W/U Status Risk Notes Problem Essential hypertension (78392497) HTN [Hypertension] (401.9) Active confirmed Problem Type II diabetes mellitus without complication (663748866) Type 2 diabetes mellitus without complications (E11.9) Active confirmed Problem Essential hypertension (85098725) Essential (primary) hypertension (I10) Active confirmed Problem Overactive bladder (464874295) Overactive bladder (N32.81) Active confirmed Problem Vitamin D deficiency (70550155) Vitamin D deficiency (E55.9) Active confirmed Problem Vitamin B12 deficiency (977278808) Vitamin B12 deficiency (E53.8) Active confirmed Problem Chronic renal insufficiency (330489709) Chronic renal insufficiency (N18.9) Active confirmed Problem Hypertension (04179557) Hypertension (I10) Active confirmed Problem Iron deficiency anemia (28600652) Iron deficiency anemia (D50.9) Active confirmed Problem Obese class I (507385098073793) BMI 33.0-33.9,adult (Z68.33) Active confirmed Problem Male erectile disorder (803617960) Male erectile disorder (F52.21) Active confirmed Problem Benign prostatic hyperplasia (787503390) BPH (benign prostatic hyperplasia) (N40.0) Active confirmed Problem Right bundle branch block (55094958) Right bundle branch block (RBBB) (I45.10) Active confirmed Problem Hearing loss (00575334) Hearing loss (H91.90) Active confirmed Problem Primary generalised osteoarthritis (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) Active confirmed Problem Hyperlipidemia (54730038) Other hyperlipidemia (E78.4) Active confirmed Problem Hyperlipidemia (79530996) Hyperlipidemia, unspecified (E78.5) Active confirmed Problem Screening for malignant neoplasm of prostate (814886026) Encounter for screening for malignant neoplasm of prostate (Z12.5) Active confirmed Problem Hyperlipidemia due to type 2 diabetes mellitus (disorder) (373033105884758) Hyperlipidemia associated with type 2 diabetes mellitus (E11.69) Active confirmed Problem Type II diabetes mellitus without complication (971699392) Type 2 diabetes mellitus without complication (E11.9) Active confirmed Problem Irritable bowel syndrome (53033436) Irritable bowel syndrome (K58.9) Active confirmed Problem Body mass index 30.00 to 34.99 (561319202446936) BMI 34.0-34.9,adult (Z68.34) Active confirmed Problem Peptic ulcer disease (00676517) Peptic ulcer disease (K27.9) Active confirmed Problem Dyslipidemia (236358625) Dyslipidemia (E78.5) Active confirmed Problem Noncompliance with dietary regimen (finding) (518857738) Noncompliance with dietary restriction (Z91.11) Active confirmed Problem Chronic kidney disease stage 3A (disorder) (943234117) CKD stage 3a, GFR 45-59 ml/min (N18.31) Active confirmed Vital Signs Heart Rate 50 /min 04/18/2025 Blood pressure diastolic 78 mm Hg 04/18/2025 Height 65 in 04/18/2025 Blood pressure systolic 140 mm Hg 04/18/2025 Weight 201.6 lbs 04/18/2025 BMI 33.54 kg/m2 04/18/2025 Encounters Encounter Location Date Provider Diagnosis [facility] [address] [place] [address] [place] [id number] 06/06/2024 R Eris Quinn Type 2 diabetes tiffanie itus without complications E11.9 ; Hypertension I10 ; Iron deficiency anemia D50.9 ; Vitamin D deficiency E55.9 ; Vitamin B12 deficiency E53.8 and Dyslipidemia E78.5 [facility] [address] [place] [address] [place] [id number] 06/09/2024 R Eris Quinn Hyperlipidemia associated with type 2 diabetes mellitus E11.69 ; Essential (primary) hypertension I10 ; Hyperlipidemia, unspecified E78.5 ; Type 2 diabetes mellitus without complications E11.9 ; Vitamin B12 deficiency E53.8 ; Vitamin D deficiency E55.9 ; Irritable bowel syndrome K58.9 and Encounter for immunization Z23 [facility] [address] [place] [address] [place] [id number] 10/25/2024 R Eris Quinn Type 2 diabetes tiffanie itus without complications E11.9 and Irritable bowel syndrome K58.[address] [place] [id number] 12/02/2024 R Eris Quinn Essential (primary) hypertension I10 ; Hyperlipidemia, unspecified E78.5 ; Type 2 diabetes mellitus without complication E11.9 ; Vitamin B12 deficiency E53.8 ; Vitamin D deficiency E55.9 and Inflammatory disease of prostate, unspecified N41.9 [facility] [address] [place] [address] [place] [id number] 12/08/2024 R Eris Quinn Adult general medica [...] Overactive bladder N32.81 and BMI 33.0-33.9,adult Z68.33 [facility] [address] [place], [place] [id number] 04/18/2025 R Eris Kai Chronic renal insufficiency N18.9 [facility] [address] [place], [place] [id number] 07/19/2024 R Reis Kai [facility] [address] [place], [place] [id number] 11/14/2024 R Eris Kai [facility] [address] [place], [place] [id number] 11/15/2024 R Eris Kai [facility] [address] [place], [place] [id number] 11/23/2024 R Eris Kai Type 2 diabetes tiffanie itus without complications E11.9 [facility] [address] [place], [place] [id number] 12/01/2024 R Eris Kai [facility] [address] [place] [id number] 04/25/2025 R Eris Kai [facility] [address] [place], [place] [id number] 05/09/2025 R Eris Kai Assessments Encounter Date [...] [address], [address], [place], [place], [id number], Insurance Providers Payer Name Payer Address Payer Phone Subscriber Number Group Number Insured Name Patient Relationship to Insured Coverage Start Date Coverage End Date [employer] [address] [place] [address] [id number] SHRUTI VALERA Self - patient [...] 05/2022 Polypectomy 11/28/2022 Hospitalization History Reason Date(Month/Year) [place], [place] ER-enlarged prostate 03/2019
--- OUTSIDE RECORDS SUMMARY | 2025-05-24 07:24 | XMS_ITS | Encounter Summary ---
Author Organization [employer] ([place], [place], [place], [place]) Address [address] [place] [address] Care Team Providers Care Cuff Matcher Name Role Phone Unavailable Primary Care Provider Unavailabl e Encounter Details Date Type Department Care Team (Late st Contact Info) Description 05/05/2019 Transcribed Document [facility] [place] Family Medicine [facility] [place] [address] ProviderSam MD [address] [place] [address] Social History Tobacco Use Types Packs/Day [...] Sam ProviderMD - 05/05/2019 2:58 PM CDT [facility] Main OR IntraOp Summary Primary Physician: TERRI CROSS MD-URO Finalized Date/Time: 05/06/19 11:59:52 Pt. Name: HUSEYIN VALERA /Sex: 1950 Male Med Rec #: [id number] Physician: TERRI CROSS MD-URO Financial #: [id number] Pt. Type: O Room/Bed: Admit/Disch: 05/05/19 12:30:00 - Institution: [facility] IntraOp Case Attendance Entry 1 Entry 2 Entry 3 Case Attendee TERRI CROSS GHANSAH, NANA DADZIE, MD KLINE, LANCE S, NA MD-URO Role Performed Surgeon/Proceduralist, Anesthesiologist of LATHE WINDER/Nurse Gym Supervisor First Record Time In 05/05/19 14:39:00 05/05/19 [...] Foster RN TODD, JUDY Baker, Amanda S, Computer Processing Scheduler Role Performed Plum Packer, First Scrub, First Scrub, First Time In [...] MD SMITH, MYRIAH L., SANCHEZ Role Performed Agronomy Manager, Ancillary Anesthesiologist Plum Packer, First Time In 05/05/19 14:39:00 05/05/19 15:30:00 05/05/19 16:09:00 Time Out 05/05/19 16:28:00 05/05/19 16:28:00 05/05/19 16:28:00 Procedure Prostate Green Light Prostate Green Light Prostate Green Light Laser Laser Laser Other Attendee GREENLIGHT LASER Superficial Wound Closed By: Last Modified By: BELGICA FIGUEROA RN SMITH, MYRIAH L., BELGICA GATES RN 05/05/19 16:31:20 05/05/19 16:31:20 05/05/19 16:31:20 [facility] IntraOp Case Attendance Audit 05/05/19 16:31:20 Warm In: MYRTLEA Modifier: SMITHML <+> 1 Time Out [...] Procedure Prostate Green Light Laser 05/05/19 16:09:37 Warm In: MYRTLEA Modifier: SETTLEA 4 <+> Time Out 4 <*> Procedure Prostate Green Light Laser <+> 9 Case Attendee <+> 9 Role Performed <+> 9 Time In <+> 9 Procedure 05/05/19 16:08:19 Warm In: MYRTLEA Modifier: SETTLEA 3 <+> Time Out 3 <*> Procedure Prostate Green Light Laser <+> 8 Case Attendee <+> 8 Role Performed <+> 8 Time In <+> 8 Procedure 05/05/19 15:08:37 Warm In: MYRTLEA Modifier: SETTLEA 2 <+> Time In [...] 7 <*> Procedure Prostate Green Light Laser [facility] IntraOp Case Times Entry 1 Patient In Room Time 05/05/19 14:39:00 Out Room Time 05/05/19 16:28:00 Anesthesia Start Time 05/05/19 14:39:00 Stop Time 05/05/19 16:28:00 Surgery / Procedure Times Start Time 05/05/19 14:58:00 Stop Time 05/05/19 16:19:00 Last Modified By: BELGICA FIGUEROA RN 05/05/19 16:30:41 [facility] IntraOp Case Times Audit 05/05/19 16:30:41 Warm In: SMITHML Modifier: SMITHML <+> 1 Out Room Time <+> 1 Stop Time 05/05/19 16:27:46 Warm In: TIERRA Modifier: SMITHML <+> 1 Stop Time [facility] IntraOp Communication Entry 1 Communication To Family/Significant other Comment START Communication By Aggie Foster RN Date and Time 05/05/19 15:02:00 Last Modified By: Aggie Foster RN 05/05/19 15:02:37 [facility] IntraOp Departure from OR Entry 1 Integumentary Assessment Integumentary WDL Assessment WDL Transfer/Handoff Transfer to PACU Phase I Handoff Method Bedside/Face to face, Phone call Post-op Transport Stretcher/Gurney Via Patient Transport RYANN MAC MD, Accompanied by BELGICA FIGUEROA RN Last Modified By: BELGICA FIGUEROA RN 05/05/19 16:28:01 [facility] IntraOp Fire Risk Assessment Entry 1 Fire [...] Modified By: Aggie Foster RN 05/05/19 15:04:42 [facility] IntraOp General Case Mainspring Barrel Assembly Cleaner 1 Case Information OR Cysto 02 [facility] Case Level 1 Room Verified Yes Wound Class II - Clean-Contaminated Specialty SN Urology Anesthesia Type General ASA Class 2 Diagnosis Preop Diagnosis URINARY RETENTION AND BENIGN PROSTATIC HYPERPLASIA Postop Same As Preop Yes Postop Diagnosis URINARY RETENTION AND BENIGN PROSTATIC HYPERPLASIA Last Modified By: Aggie Foster RN 05/05/19 15:06:42 [facility] IntraOp Intraoperative Assessment Entry 1 Handoff Method Other Valid History / Yes Physical in Chart Preoperative Yes Checklist Reviewed/Evaluated Allergies Reviewed Yes Patient is Latex No Sensitive Isolation Not applicable Precautions Noted Level of WDL Consciousness (WDL = Alert, Oriented to Person, Place, and Time) Skin Assessment Yes Verified Present Upon IVs Arrival to OR Last Modified By: Aggie Foster RN 05/05/19 15:06:50 [facility] IntraOp Intraoperative Equipment Entry 1 Type Monitoring Equipment Intraop Monitoring Electrocardiogram Three lead placement (ECG) Electrode Placement Blood Pressure Non-Invasive BP Device Source Antiembolic Devices Antiembolic Devices Sequential compression device, knee high Antiembolic Device Bilateral Location Antiembolic Device [id number] ID Number Scopes Photo/Video Documentation Photo No Video No Intraop Equipment Sequential compression Comment devices on and in operation prior to induction of anesthesia. Last Modified By: Aggie Foster RN 05/05/19 15:07:29 [facility] IntraOp Medication Admin Entry 1 Entry 2 Medication/Irrigant B&O 16A Suppository - RAFI IRR NACL 0.9PCT [id number] Combo Med List Time Administered Route of RECTAL IRRIGATION Administration Dose Dose 16 33442 Unit of Measure ampule ml Volume Administered By TERRI CROSS, TERRI CROSS MD-URO -URO Procedure Irrigation Irrigant Volume In Irrigant Volume Out Last Modified By: Aggie Foster RN SMITH, MYRIAH L., RN 05/05/19 15:17:14 05/05/19 16:31:13 [facility] IntraOp Medication Admin Audit 05/05/19 16:31:13 Warm In: TIERRA Modifier: CAROLINAML <+> 2 Medication/Irrigant <+> 2 Route of Administration <+> 2 Administered By <+> 2 Dose <+> 2 Unit of Measure [facility] IntraOp Patient Positioning Entry 1 Procedure Prostate [...] Modified By: Aggie Foster RN 05/05/19 15:08:40 [facility] IntraOp Patient Positioning Audit 05/05/19 15:08:40 Warm In: TIERRA Modifier: TIERRA 1 <*> Procedure Prostate Green Light Laser [facility] IntraOp Sign In Entry 1 Patient, Site, [...] Modified By: Aggie Foster RN 05/05/19 15:07:44 [facility] IntraOp Sign Out Entry 1 RN Confirmation [...] Modified By: Aggie Foster RN 05/05/19 15:12:06 [facility] IntraOp Skin Prep Entry 1 Procedure Prostate Green Light Laser Prescribed Yes Pre-Surgical Prep Completed Prep Area Genitalia Intraop Prep Integumentary WDL Assessment WDL Prep Agents Betadine solution Prep by Aggie Foster RN Hair Removal Last Modified By: Aggie Foster RN 05/05/19 15:08:40 [facility] IntraOp Skin Prep Audit 05/05/19 15:08:40 Warm In: TIERRA Modifier: TIERRA 1 <*> Procedure Prostate Green Light Laser [facility] IntraOp Surgical Procedures Entry 1 Procedure Prostate Green Light Laser Additional (GREENLIGHT LASER OF Procedure PROSTATE) Description Primary Procedure Yes Primary Surgeon TERRI CROSS MD-URO Start 05/05/19 14:58:00 Stop 05/05/19 16:19:00 Anesthesia Type General Specialty SN Urology Wound Class I - Clean Last Modified By: BELGICA FIGUEROA RN 05/05/19 16:31:19 [facility] IntraOp Surgical Procedures Audit 05/05/19 16:31:19 Warm In: TIERRA Modifier: SMITHML <+> 1 Stop 05/05/19 15:08:53 Warm In: TIERRA Modifier: TIERRA 1 <*> Procedure Prostate [...] Additional Procedure Description GREENLIGHT LASER OF PROSTATE [facility] IntraOp Temp Regulation Devices Entry 1 Temp Regulation Temperature Warm blankets, Room Regulation Device temperature Temperature Upper body Regulation Site Temperature Aggie Foster RN Regulation Device Applied by Temperature Patient's temperature Regulation Comment monitored by anesthesia provider. Forced air warming device settings controlled by anesthesia provider. Last Modified By: Aggie Foster RN 05/05/19 15:09:07 [facility] IntraOP Time Out Entry 1 Procedure to [...] Modified By: Aggie Foster RN 05/05/19 15:08:40 [facility] IntraOP Time Out Audit 05/05/19 15:08:40 Warm In: TIERRA Modifier: TIERRA 1 <*> Procedure to [...]
--- OUTSIDE RECORDS SUMMARY | 2025-05-24 07:24 | XMS_ITS | Encounter Summary ---
Author Organization [employer] ([place], [place], [place], [place]) Address [address] [place] [address] Care Team Providers Care Motor Home Electrical Foreman Name Role Phone Unavailable Primary Care Provider Unavailabl e Encounter Details Date Type Department Care Team (Late st Contact Info) Description 05/05/2019 Transcribed Document [facility] Family Medicine [facility] [place] [address] ProviderSam MD [address] [place] [address] Social History Tobacco Use Types Packs/Day [...] Historical ProviderMD - 05/05/2019 2:58 PM CDT [facility] Main OR PACU Summary Primary Physician: TERRI CROSS MD-URO Finalized Date/Time: 05/05/19 18:09:17 Pt. Name: HUSEYIN VALERA /Sex: 1950 Male Med Rec #: [id number] Physician: TERRI CROSS MD-URO Financial #: [id number] Pt. Type: O Room/Bed: Admit/Disch: 05/05/19 12:30:00 - Institution: [facility] Main OR PACU I Case Times Entry 1 In PACU I 05/05/19 16:30:00 Ready for PACU 05/05/19 17:00:00 Discharge Discharge from PACU 05/05/19 17:50:00 I Last Modified By: [place] PrairieRuthie moyer Rn-Traveler 05/05/19 18:09:03 [facility] Main OR PACU Acuity Entry 1 Start Time 05/05/19 17:00:00 Stop Time 05/05/19 17:50:00 Acuity Level [facility] PACU Acuity I Last Modified By: Ruthie Wilson Rn-Traveler 05/05/19 18:09:15 Finalized By: Ruthie Wilson Rn-Traveler Document Signatures Signed By: Ruthie Wilson Rn-Traveler 05/05/19 18:09 Electronically signed by Manny [facility] Conversion Fiber Optic Technician Cerner at 12/11/2022 3:21 PM CDT documented in this encounter Plan of Treatment Not on file documented as of this encounter Visit Diagnoses Not on filedocumented in this encounter
--- OUTSIDE RECORDS SUMMARY | 2025-05-24 07:24 | XMS_ITS | Encounter Summary ---
Author Organization [employer] ([place], [place], [place], [place]) Address [address] [place] [address] Care Team Providers Care Secondary Special Education Teacher Name Role Phone Unavailable Primary Care Provider Unavailabl e Encounter Details Date Type Department Care Team (Late st Contact Info) Description 05/05/2019 Transcribed Document [facility] [place] [facility] [place] [address] ProviderSam MD [address] [place] [address] Social History Tobacco Use Types [...] including vitamins, herbs, eye drops, creams, and [id number]-[id number] medicines. ??? Any problems you or family [...] 08/29/2017 Elsevier Interactive Patient Education ? 2017 [employer] documented in this encounter Plan of Treatment Not on file documented as of this encounter Visit Diagnoses Not on filedocumented in this encounter
--- OUTSIDE RECORDS SUMMARY | 2025-05-24 07:24 | XMS_ITS | Encounter Summary ---
Author Organization [employer] ([place], [place], [place], [place]) Address [address] [place] [address] Care Team Providers Care Bliss Press Operator Name Role Phone Unavailable Primary Care Provider Unavailabl e Encounter Details Date Type Department Care Team (Late st Contact Info) Description 05/05/2019 Transcribed Document [facility] [place] Family Medicine [facility] [place] [address] ProviderSam MD [address] [place] [address] Social History Tobacco Use Types Packs/Day Years Used Date Smoking Tobacco: Never Assessed Sex and Gender Information Value Date Recorded Sex Assigned at Male 02/20/2022 5:24 PM CDT Legal Sex Male 6:43 PM CDT Gender Identity Male 02/20/2022 5:24 PM CDT Sexual Orientation Not on file documented as of this encounter Miscellaneous Notes * Cerner Conversion Note - Sam ProviderMD - 05/05/2019 4:40 PM CDT DATE OF PROCEDURE: PREOPERATIVE DIAGNOSIS(ES): Urinary retention secondary to benign prostatic hypertrophy. POSTOPERATIVE DIAGNOSIS(ES): Urinary retention secondary to benign prostatic hypertrophy. PROCEDURE: GreenLight laser vaporization of prostate. SURGEON: Chema Madrigal M.D. ANESTHESIA: General. DRAINS: 22-Libyan two-way Whitehead catheter. COMPLICATIONS: None. ESTIMATED BLOOD [...] CC1: Chema Madrigal M.D. CC2: Dr. Eris QuinnRuby, [place] documented in this encounter Plan of Treatment Not on file documented as of this encounter Visit Diagnoses Not on filedocumented in this encounter
--- OUTSIDE RECORDS SUMMARY | 2025-05-24 07:24 | XMS_ITS | Encounter Summary ---
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 HENT: Normocephalic, slightly [place]. Neck: Supple, Non-tender. Respiratory: Lungs are clear to auscultation, Respirations are non-labored. Cardiovascular: Normal rate, Regular rhythm, No murmur, No gallop, betty LE 1+ edema. Gastrointestinal: Soft, Non-tender. Genitourinary: No costovertebral angle tenderness, suero cath draining clear yellow urine to drainage bag. Lymphatics: No lymphadenopathy neck, axilla, groin. Musculoskeletal: Normal range of motion, Normal strength. Integumentary: Warm, Dry, [place]. Neurologic: Alert, Oriented. Psychiatric: Cooperative, Appropriate mood & affect. Review / Management Results review: No qualifying data available. Impression and Plan Condition: Stable. documented in this encounter Plan of Treatment Not on file documented as of this encounter Visit Diagnoses Not on filedocumented in this encounter
--- OUTSIDE RECORDS SUMMARY | 2025-05-24 07:24 | XMS_ITS | Encounter Summary ---
Author Organization [employer] ([place], [place], [place], [place]) Address [address] [place] [address] Care Team Providers Care Television Presenter Name Role Phone Unavailable Primary Care Provider Unavailabl e Encounter Details Date Type Department Care Team (Late st Contact Info) Description 05/05/2019 Transcribed Document [facility] [place] [facility] [place] [address] ProviderSam MD [address] [place] [address] Social History Tobacco Use Types Packs/Day [...] Sam ProviderMD - 05/05/2019 3:15 PM CDT [facility] Main OR Preop Summary Primary Physician: TERRI CROSS MD-URO Finalized Date/Time: 05/05/19 14:38:18 Pt. Name: HUSEYIN VALERA /Sex: 1950 Male Med Rec #: [id number] Physician: TERRI CROSS MD-URO Financial #: [id number] Pt. Type: O Room/Bed: Admit/Disch: 05/05/19 12:30:00 - Institution: [facility] PreOp Case Times Entry 1 In Preop 05/05/19 12:38:00 Ready for Holding n/a Room Patient Ready for 05/05/19 13:53:00 Surgery Patient Out of Preop 05/05/19 14:38:00 Patient Out of n/a Holding Room Last Modified By: EMERSON Hernandez RN 05/05/19 14:38:17 [facility] PreOp Case Times Audit 05/05/19 14:38:17 Business Process Lead: RUBIO Modifier: WILSONDL <+> 1 Patient Out of Preop 05/05/19 13:53:47 Business Process Lead: RUBIO Modifier: WILSONDL <+> 1 Patient Ready for Surgery Finalized By: EMERSON Hernandez, RN Document Signatures Signed By: EMERSON Hernandez RN 05/05/19 14:38 Electronically signed by Manny [facility] Conversion Lumber Salvager Cerner at 12/11/2022 3:20 PM CDT documented in this encounter Plan of Treatment Not on file documented as of this encounter Visit Diagnoses Not on filedocumented in this encounter
--- OUTSIDE RECORDS SUMMARY | 2025-05-24 07:25 | XMS_ITS | Encounter Summary ---
Author Organization [employer] ([place], [place], [place], [place]) Address [address] [place] [address] Care Team Providers Care Entry Level Management Name Role Phone Unavailable Primary Care Provider Unavailabl e Encounter Details Date Type Department Care Team (Late st Contact Info) Description 05/05/2019 Transcribed Document [facility] [place] [facility] [address] ProviderSam MD [address] [place] [address] Social History Tobacco Use Types Packs/Day [...] Historical ProviderMD - 05/05/2019 2:58 PM CDT [facility] Main OR PostOp Summary Primary Physician: TERRI CROSS MD-URO Finalized Date/Time: 05/05/19 18:48:22 Pt. Name: HUSEYIN VALERA /Sex: 1950 Male Med Rec #: [id number] Physician: TERRI CROSS MD-URO Financial #: [id number] Pt. Type: O Room/Bed: Admit/Disch: 05/05/19 12:30:00 - Institution: [facility] Main OR PostOp Case Times Entry 1 In PACU II 05/05/19 17:53:00 Ready for PACU II 05/05/19 18:30:00 Discharge Discharge from PACU 05/05/19 18:36:00 II Last Modified By: JOSEOCTAVIO MARINO RN 05/05/19 18:48:19 Finalized By: OCTAVIO JOSE, RN Document Signatures Signed By: OCTAVIO JOSE RN 05/05/19 18:48 Electronically signed by Manny [facility] Conversion Medical Insurance Verifier Cerner at 12/11/2022 3:13 PM CDT documented in this encounter Plan of Treatment Not on file documented as of this encounter Visit Diagnoses Not on filedocumented in this encounter
--- OUTSIDE RECORDS SUMMARY | 2025-05-24 07:25 | XMS_ITS | Clinical Summary ---
Author Organization [employer] ([place], [place], [place], [place]) Address [address] [place] [address] Care Team Providers Care Case Checker Name Role Phone Unavailable Primary Care Provider [...]
--- OUTSIDE RECORDS SUMMARY | 2025-05-24 07:25 | XMS_ITS | Encounter Summary ---
Author Organization [employer] ([place], [place], [place], [place]) Address [address] [place] [address] Care Team Providers Care Information Receptionist Name Role Phone Unavailable Primary Care Provider Unavailabl e Encounter Details Date Type Department Care Team (Late st Contact Info) Description 05/04/2019 Transcribed Document [facility] [place] Family Medicine [facility] [place] [address] ProviderSam MD [address] [place] [address] Social History Tobacco Use Types Packs/Day [...] EDT Performed On: 05/04/2019 15:25 EDT by LUNA TORRES RN Height and Weight, Clinical Dosing Height Source : Measured Height Entry Format : [place] Height, Feet : 5 ft(Converted to: 152 cm, 60 Inch) Height, Inches : 5 Inch(Converted to: 0 ft 5 Inch, 12.70 cm) Clinical Height : 165.1 cm Weight Source : Standing scale Weight Entry Format : [place] Clinical Dosing Weight : 89.82 kg Weight, Pounds : 197.6 lb Body Surface Area (BSA) : 1.97 m2 Body Mass Index : 33 kg/m2 (HI) [place] Body Weight : 61 kg EMERSON Hernandez [...] Living will, Medical durable power of deputy county attorney (proxy) Copy Advance Directive Verified/on Chart [...] Frausto Support Person/Pt Rep Contact Information : [phone] Want Family/Rep/Phys Notified of Admit : No Emergency Contact #1 : Leonor Lisbet Emergency Contact #1 Emergency Contact #1 Relationship : spouse Emergency Contact #2 : ` Emergency Contact #2 Phone Number : ` Emergency Contact #2 Relationship : ` Information Obtained From : Patient Primary Language : Citizen [place] Communication Barrier : None LUNA TORRES RN [...]
--- OUTSIDE RECORDS SUMMARY | 2025-05-24 07:25 | XMS_ITS | Encounter Summary ---
Author Organization [employer] ([place], [place], [place], [place]) Address [address] [place] [address] Care Team Providers Care Roving Frame Tender Name Role Phone Unavailable Primary Care Provider Unavailabl e Encounter Details Date Type Department Care Team (Late st Contact Info) Description 05/05/2019 Transcribed Document [facility] [place] Family Medicine [facility] [address] ProviderSam MD [address] [place] [address] Social History Tobacco Use Types Packs/Day [...] Sam ProviderMD - 05/05/2019 6:09 PM CDT [facility] [place] [address] HUSEYIN VALERA :1950 Visit Time:05/05/2019 [...] Instructions: Follow up of next week in [place] Follow Up Instructions: place suero catheter to leg bag drainage Follow-Up Appointments Follow Up with TERRI CROSS When Within 2 weeks Comments Call for follow up appointment in [place]. Where: [address] [place] [address] [facility] (1) Medications What How Much [...] including vitamins, herbs, eye drops, creams, and lato-yrl-pvqddnz medicines. ??? Any problems you or family [...] 11/16/2008 Document Revised: 08/29/2017 Document Reviewed: 08/29/2017 [employer] Interactive Patient Education ?? 2017 [employer] Emergency Awareness and Preventative Care STROKE [...] Assistance with quitting is available by contacting 2-162-FYSR-NOW. This is a free resource providing counseling, [...] was given the opportunity to ask questions. Patient/Filling Hand Name: Patient/Filling Hand Signature: Relationship to Patient: Clinician/Hospital Filling Hand Signature: Date: Electronically signed by Interface, [facility] Conversion Window Trimmer Apprentice Cerner at 12/11/2022 3:14 PM CDT documented in this encounter Plan of Treatment Not on file documented as of this encounter Visit Diagnoses Not on filedocumented in this encounter
--- OUTSIDE RECORDS SUMMARY | 2025-05-24 07:25 | XMS_ITS | Referral Summary ---
Author Organization [employer] ([place], [place], [place], [place]) Address [address] [place] [address] Care Team Providers Care Vat House Supervisor Name Role Phone Unavailable Primary Care [...]
[2025-05-24 07:52] VITALS: BMI 32.4
[2025-05-24 08:00] VITALS: BP 159/102; PULSE 74; RESP 18; TEMP 36.1; O2SAT 99
[2025-05-24 08:11] LABS: Chloride 104 mmol/L (98-107); Potassium 4.0 mmoL/L (3.5-5.1); Sodium 138 mmol/L (136-145)
[2025-05-24 08:15] LABS: Anion Gap 10.0 mEq/L (5-15); Calcium 9.4 mg/dl (8.4-10.2); Carbon Dioxide 28 mmol/L (22.0-30.0); Glucose 130 mg/dl (74-100)
[2025-05-24 08:16] LABS: POC Glucose,Bedside 115 gm/dL (70-110)
[2025-05-24] MEDS: METOPROLOL TARTRATE 50MG TABLET PO (08:16)
--- NOTE | 2025-05-24 08:30 | CT_ITS ---
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 A noncontrast coronary calcium scan was performed. A CT attenuation threshold of 130 Hounsfield units (HU) was used for the detection of calcium in contiguous voxels of 1 sq mm in area to be counted as individual lesions. Bolus tracking in the ascending aorta with a threshold of 180 HU was performed. Immediately afterwards, ECG synchronized cardiac CT was then performed from the cardiac base to apex using retrospective gating with ECG tube current modulation. A total of 85 mL of Isovue 370 mg/mL contrast medium was administered at 5 mL/sec followed by a saline flush using a biphasic injection protocol. A tube voltage of 120 KVp was used. The patient received the following medications prior to the cardiac CT. 25 mg of oral metoprolol 0.8 mg of sublingual nitroglycerin The average heart rate at the time of acquisition was 65 bpm and regular. Image Reconstruction Transaxial images were reconstructed at 0.67 mm slide thickness. Data was reviewed interactively on an advanced workstation capable of 2 and 3-dimensional displays in all conventional reconstruction formats, including multiplanar reformations, maximum intensity projections, curved multiplanar reformations, and volume rendered reconstructions. When applicable, selected routine images describing the relevant coronary anatomy and pathology were saved and sent to PACS. Complications None Technical Quality Overall image quality was fair. Coronary artery opacification was fair. Total DLP (Dose-Length Product) is 2980.7 mGy-cm. The reported value represents the total of one or more individual components during the CT acquisition of this date and at this time, and as such, the same value may appear in more than one CT report depending on the interpreting/reporting physicians. COMPARISON None FINDINGS CT Coronary Calcium Scoring LMA (Left Main Artery) = 166 LAD (Left Anterior Descending) = 1316 LCX (Left Coronary Circumflex) = 0 RCA (Right Coronary Artery) = 1105 Total Calcium Score = 2587 using the AJ-130 method. The observed calcium score of 2587 is at 94th percentile for subjects of the same age, sex, and race/ethnicity. The interpretation of the calcium heart score is based on the following continuum*: 0 = no calcified plaque detected (risk of coronary artery disease is very low ??? less than 5%) 1-10 = calcium detected in extremely minimal levels (risk of coronary diseases is still low ??? less than 10%) 11-100 = mild levels of plaque detected with certainty (mild or minimal narrowing of heart arteries is likely) 101-400 = definite,at least moderate levels of plaque detected (relatively high risk of a heart attack within 3-5 years) >401-999 = extensive levels of plaque detected (high risk of heart attack, high levels of vascular disease are present, high likelihood of at least one significant coronary narrowing) *The calcium heart score quantifies the burden of coronary calcification/plaque in the coronary arteries. The calcium heart score is not able to evaluate the presence or burden of non-calcified (i.e. soft) plaque. There is calcification in the aortic valve, as well as the ascending and descending thoracic aorta. Coronary CT Angiography The coronary arterial system is right dominant. Quantitative Stenosis Grading: Left Main (LM): The left main originates normally from the left sinus of Valsalva. The LM bifurcates into the left anterior descending artery and left circumflex artery. There is mixed calcified/noncalcified in the proximal and mid LM segments, with up to 50% luminal stenosis. Left Anterior Descending (LAD) and Diagonal Branches: The LAD gives off 3 diagonal branch(es). There is mixed calcified/noncalcified plaque in the proximal and mid LAD segments with up to 70-90% luminal stenosis. There is no evidence of LAD-myocardial bridge. Left Circumflex (LCX) and Obtuse Marginals (OM): The LCX gives off 1 Obtuse Marginal (OM) branch(es). The LCX and its branches are patent with no evidence of atherosclerosis. Right Coronary Artery (RCA): The RCA originates normally from the right sinus of Valsalva. The RCA gives off a posterior descending artery (PDA) and posterolateral (PL) branches. There is mixed calcified/noncalcified plaque in the proximal and mid RCA segments, with up to 70-90% luminal stenosis. There is also reduced contrast opacification beyond the proximal RCA segment, which may be suggestive of chronic total occlusion in the corresponding region, with collateralization from the LCx territory. Non-Coronary Cardiac Findings: Analysis of the left ventricular (LV) structure and function was performed after 3-D reconstruction of the LV from axial images, with user-corrected automatic contouring for assessment of LV volumes and user-defined reconstruction from oblique planes for measurement of 3-D cardiac structure and function. -The left ventricle systolic function is normal. -There is no left atrial appendage filling defect. Two right pulmonary veins and two left pulmonary veins drain normally into the left atrium. -No pericardial thickening or calcification. -Central and branch pulmonary arteries in the bgyzp-ic-hzvp are unremarkable. -Thoracic aorta within the visualized thoracic aortic-branches in the ptvlp-bn-mrsy is unremarkable. Extracardiac Structures No significant extra-cardiac findings. Note, however, that this study is focused on the cardiac findings. IMPRESSION -Extensive coronary calcification with an Agatston score = 2587 using the AJ-130 method. -The observed calcium score of 2587 is at 94th percentile for subjects of the same age, sex, and race/ethnicity. -Severe multivessel atherosclerotic coronary disease in the LM, LAD, and RCA, likely with presence of significant flow-limiting atherosclerosis of the coronary arteries. -There is also reduced contrast opacification beyond the proximal RCA segment, which may be suggestive of chronic total occlusion in the corresponding region, with collateralization from the LCx territory. -CAD-RADS 5. Management recommendations per ACC/AHA guidelines*, as clinically appropriate. *Recommendations: CAD RADS 0: Reassurance. Consider non-atherosclerotic causes of chest pain. CAD RADS 1: Consider non-atherosclerotic causes of chest pain. Consider preventive therapy and risk factor modification. CAD RADS 2: Consider non-atherosclerotic causes of chest pain. Consider preventive therapy and risk factor modification, particularly for patients with nonobstructive plaque in multiple segments. CAD RADS 3: Consider further functional testing. Consider symptom-guided anti-ischemic and preventive pharmacotherapy as well as risk factor modification per published guideline statements. CAD RADS 4A: Consider further functional testing or invasive coronary angiography with revascularization per published guideline statements. Consider symptom-guided anti-ischemic and preventive pharmacotherapy as well as risk factor modification per published guideline statements. CAD RADS 4B: Invasive coronary angiography recommended with revascularization per published guideline statements. Consider symptom-guided anti-ischemic and preventive pharmacotherapy as well as risk factor modification per published guideline statements. CAD RADS 5: Consider invasive angiography and/or viability assessment with revascularization per published guideline statements. Consider symptom-guided anti-ischemic and preventive pharmacotherapy as well as risk factor modification per published guideline statements. CRITICAL RESULT None COMMUNICATION Per this written report The coronary and cardiac findings of this CCTA were reviewed, reported, and signed by Marc Dennis MD (Burnishing Machine Operator) Conclusion Electronically signed by : Latonya Dennis MD 05/30/2025 12:44:09
[2025-05-24 08:37] LABS: Blood Urea Nitrogen 19 mg/dl (9-20); Creatinine Clearance Estimated 61 mL/min (50-200); Creatinine,Serum 1.40 mg/dl (0.66-1.25); Estimated Glomerular Filt Rate 50 ml/min (>60); GFR (African American) 60 ML/MIN (>60)
[2025-05-24 09:23] VITALS: BP 173/113; PULSE 68; RESP 18; TEMP 36.1; O2SAT 94
[2025-05-24 09:26] VITALS: BP 137/84; PULSE 63; RESP 18; TEMP 36.1; O2SAT 96
[2025-05-24 09:33] VITALS: BP 113/81; PULSE 68; RESP 18; TEMP 36.1; O2SAT 95
[2025-05-24] MEDS: 0.9 % SODIUM CHLORIDE 50 ML VIAL IV (09:37)
[2025-05-24] MEDS: IOPAMIDOL-370 (76%);100ML BOTTLE 85 ML IV (09:37)
[2025-05-24] MEDS: SODIUM CHLORIDE 0.9% 10ML SYR (RAD ONLY) 10 ML IV (09:37)
== END 2025-05-24 09:56 | disposition home or self-care (01) ==
PROVIDERS: PCP Family Medicine; Visit Provider Internal Medicine
DX: I25.118 Atherosclerotic heart disease of native coronary artery with other forms of angina pectoris (principal); I10 Essential (primary) hypertension; R94.31 Abnormal electrocardiogram [ECG] [EKG]; I45.10 Unspecified right bundle-branch block; R93.1 Abnormal findings on diagnostic imaging of heart and coronary circulation; Z82.49 Family history of ischemic heart disease and other diseases of the circulatory system; E78.5 Hyperlipidemia, unspecified
CPT/HCPCS: 75574; 80048; 82962; Q9967

== ENCOUNTER 2025-06-07 08:12 | Day surgery (SDC) | payer MEDICARE, SELFPAY ==
[2025-06-07] VITALS (11 sets, daily range): BP systolic 109–180; BP diastolic 61–95; PULSE 50–66; RESP 14–22; O2SAT 90–100; BMI 32.1
--- NOTE | 2025-06-07 07:11 | IR_ITS ---
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 Patient Location: Outpatient PROCEDURES Left heart catheterization Left ventriculogram Selective coronary angiogram INDICATION Abnormal CCTA, Coronary artery disease, Angina pectoris Informed consent was obtained prior to the procedure. COMPLICATIONS NONE Estimated Blood Loss: LESS THAN 10 ML TECHNIQUE One percent lidocaine used to anesthetize the right anterior aspect of the wrist. The right radial artery was accessed via the Seldinger technique. A 6 Amharic sheath was placed in the right radial artery. 2.5 mg of Verapamil, 800 mcg of nitroglycerin, 1mg Lidocaine and 5000 U Heparin were given through the arterial sheath. The JL3 catheter was also used to perform left heart catheterization, left ventriculogram and selective coronary angiogram. At the end of the procedure the sheath was removed good hemostasis was achieved using Traclet band, patient was transferred to the postop holding area in stable condition. ANGIOGRAPHIC RESULTS The left main artery Normal The left anterior descending artery Has proximal 50% stenosis followed by mid vessel greater than 90% stenosis with subtotal occlusion of the distal LAD. The circumflex artery A large ramus intermedius has a proximal concentric 50% stenosis. The remaining circumflex artery is patent The right coronary artery Large she had still nondominant and proximally subtotally occluded with scant right to right collaterals and rich vsxr-pq-xlzfm collaterals The SCOTT ventriculogram reveals Normal 60% The left ventricular end-diastolic pressure 15 mmHg IMPRESSION Severe coronary artery disease as described above most notably with a subtotally occluded mid LAD and a occluded proximal right coronary artery Normal ejection fraction Normal LVEDP PLAN 1. LDL less than 55 to be achieved with high intensity statin 2. Referral to [facility] for surgical revascularization Electronically signed by : Adonay Braxton MD 06/07/2025 14:19:29
[2025-06-07 08:58] LABS: Hematocrit 47.7 % (42.0-52.0); Hemoglobin 15.3 g/dL (14.1-18.0); Immature Granulocytes % 0.4 %; Mean Corpuscular HGB Conc 32.1 g/dL (31.8-35.4); Mean Corpuscular Hemoglobin 27.9 pg (27.0-31.2); Mean Corpuscular Volume 87.0 fl (80-94); Nucleated Red Blood Cells % 0 %; Platelet Count 202 K/mm3 (142-424); Red Blood Count 5.48 M/mm3 (4.60-6.20); Red Cell Distribution Width-SD 44.1 fL; White Blood Count 4.9 K/mm3 (4.8-10.8)
[2025-06-07 09:13] LABS: Chloride 103 mmol/L (98-107); Potassium 3.8 mmoL/L (3.5-5.1); Sodium 141 mmol/L (136-145)
[2025-06-07 09:16] LABS: Anion Gap 13.8 mEq/L (5-15); Blood Urea Nitrogen 20 mg/dl (9-20); Carbon Dioxide 28 mmol/L (22.0-30.0); Creatinine Clearance Estimated 52 mL/min (50-200); Creatinine,Serum 1.60 mg/dl (0.66-1.25); Estimated Glomerular Filt Rate 42 ml/min (>60); GFR (African American) 51 ML/MIN (>60)
[2025-06-07 09:17] LABS: Calcium 9.1 mg/dl (8.4-10.2); Glucose 138 mg/dl (74-100)
[2025-06-07] MEDS: HEPARIN 1,000 UNITS/500ML NS (CATH LAB) 3000 UNIT IV (09:51)
[2025-06-07] MEDS: NITROGLYCERIN 800MCG/8ML SYR (CATH LAB) 800 MCG IA (09:51)
[2025-06-07] MEDS: 0.9 % SODIUM CHLORIDE 500 ML 25 ML IV (09:51)
[2025-06-07] MEDS: LIDOCAINE 1% 10ML MDV 10 ML IJ (09:51)
[2025-06-07] MEDS: HEPARIN 1,000 UNITS/ML 10ML VIAL (CATH LAB) 5000 UNIT IV (09:52)
[2025-06-07] MEDS: VERAPAMIL 2.5MG/ML 2ML VIAL 2.5 MG IV (09:52)
[2025-06-07] MEDS: FENTANYL 100MCG/2ML VIAL 50 MCG IV (10:20)
[2025-06-07] MEDS: MIDAZOLAM HCL 1MG/ML 5ML VIAL 1 MG IV (10:20)
[2025-06-07] MEDS: IOPAMIDOL-370 (76%);100ML BOTTLE 50 ML IV (10:56)
== END 2025-06-07 13:28 | disposition home or self-care (01) ==
PROVIDERS: PCP Family Medicine; Visit Provider Internal Medicine
PROC: 4A023N7 Measurement of Cardiac Sampling and Pressure, Left Heart, Percutaneous Approach (ICD-10-PCS; CPT 93452; principal; 2025-06-07 09:45)
DX: I25.119 Atherosclerotic heart disease of native coronary artery with unspecified angina pectoris (principal); R93.1 Abnormal findings on diagnostic imaging of heart and coronary circulation; R94.31 Abnormal electrocardiogram [ECG] [EKG]; I10 Essential (primary) hypertension; E11.9 Type 2 diabetes mellitus without complications; E78.49 Other hyperlipidemia; I45.10 Unspecified right bundle-branch block; Z79.84 Long term (current) use of oral hypoglycemic drugs; Z79.82 Long term (current) use of aspirin; Z79.899 Other long term (current) drug therapy; Z82.49 Family history of ischemic heart disease and other diseases of the circulatory system
CPT/HCPCS: 80048; 85025; 93458; 99152; C1725; C1769; J1200; J1644; J2003; J3010; J7040; Q9967